=== PATIENT | male | born 1950 | race Caucasian/White ===

== ENCOUNTER → 2016-08-14 | Outpatient (CLI) | payer OTHER ==
[~2016-08-14] MED LIST: FRRS300 PO; LISI-725 PO; MULT-506 PO; PRT/20 PO
[2016-08-14 17:48] LABS: BLOOD UREA NITROGEN 15 mg/dl (7-18); BUN/CREATININE RATIO 18.6 (10-20); CALCIUM 9.3 mg/dl (8.5-10.1); CARBON DIOXIDE 28 mmol/L (21-32); CHLORIDE 105 mmol/L (98-107); GLUCOSE 139 mg/dl (70-99); POTASSIUM 4.2 mmol/L (3.5-5.1); SODIUM 141 mmol/L (136-145)
== END | disposition home or self-care (01) ==
LOC: C.LABMFLN 09:30
PROVIDERS: ATTEND Family Medicine
DX: I10 Essential (primary) hypertension (principal)

== ENCOUNTER → 2016-12-06 | Outpatient (CLI) | payer OTHER ==
[2016-12-06 13:13] LABS: ESTIMATED AVERAGE GLUCOSE 154 mg/dl; HA1C FLAG Normal (Normal)
[2016-12-06 13:50] LABS: ALT/SGPT 30 U/L (12-78); AST/SGOT 17 U/L (15-37); BLOOD UREA NITROGEN 17 mg/dl (7-18); BUN/CREATININE RATIO 26.5 (10-20); CARBON DIOXIDE 30 mmol/L (21-32); CHLORIDE 107 mmol/L (98-107); CHOLESTEROL 178 mg/dl (0-200); CREATININE 0.65 mg/dl (0.60-1.40); GLUCOSE 136 mg/dl (70-99); SODIUM 143 mmol/L (136-145); TRIGLYCERIDES 77 mg/dl (0-150); VERY LOW DENSITY LIPOPROT CALC 15 mg/dl
[2016-12-06 13:53] LABS: ALKALINE PHOSPHATASE 65 U/L (45-117); CHOLESTEROL/HDL RATIO 3.8; HDL CHOLESTEROL 47 mg/dl; LDL CHOLESTEROL CALCULATED 116 mg/dl
== END | disposition home or self-care (01) ==
LOC: C.LABMFLN 07:02
PROVIDERS: ATTEND Family Medicine
DX: E11.9 Type 2 diabetes mellitus without complications (principal); E55.9 Vitamin D deficiency, unspecified; I10 Essential (primary) hypertension

== ENCOUNTER → 2017-04-11 | Outpatient (CLI) | payer OTHER ==
[2017-04-11 13:16] LABS: ESTIMATED AVERAGE GLUCOSE 157 mg/dl; HA1C FLAG Normal (Normal)
[2017-04-11 13:21] LABS: BLOOD UREA NITROGEN 15 mg/dl (7-18); BUN/CREATININE RATIO 20.3 (10-20); CALCIUM 9.4 mg/dl (8.5-10.1); CARBON DIOXIDE 30 mmol/L (21-32); CHLORIDE 104 mmol/L (98-107); CHOLESTEROL 167 mg/dl (0-200); CREATININE 0.75 mg/dl (0.60-1.40); GLUCOSE 125 mg/dl (70-99); POTASSIUM 4.3 mmol/L (3.5-5.1); SODIUM 139 mmol/L (136-145)
[2017-04-11 13:25] LABS: ALKALINE PHOSPHATASE 82 U/L (45-117); ALT/SGPT 25 U/L (12-78); AST/SGOT 16 U/L (15-37); CHOLESTEROL/HDL RATIO 3.4; HDL CHOLESTEROL 49 mg/dl; LDL CHOLESTEROL CALCULATED 105 mg/dl; TRIGLYCERIDES 66 mg/dl (0-150); VERY LOW DENSITY LIPOPROT CALC 13 mg/dl
== END | disposition home or self-care (01) ==
LOC: C.LABMFLN 07:07
PROVIDERS: ATTEND Family Medicine
DX: E11.9 Type 2 diabetes mellitus without complications (principal); E78.00 Pure hypercholesterolemia, unspecified; I10 Essential (primary) hypertension

== ENCOUNTER → 2017-07-02 | Outpatient (CLI) | payer OTHER ==
[2017-07-02 19:01] LABS: LYME DISEASE AB IGG NEG (NEG); LYME DISEASE AB IGM NEG (NEG)
== END | disposition home or self-care (01) ==
LOC: C.LABMFLN 13:37
PROVIDERS: ATTEND Family Medicine
DX: M79.1 Myalgia (principal); T14.8XXA Other injury of unspecified body region, initial encounter; W57.XXXA Bitten or stung by nonvenomous insect and other nonvenomous arthropods, initial encounter

== ENCOUNTER → 2017-08-23 | Outpatient (CLI) | payer OTHER ==
[2017-08-23 13:07] LABS: ALBUMIN 3.4 gm/dl (3.4-5.0); ALT/SGPT 31 U/L (12-78); BLOOD UREA NITROGEN 14 mg/dl (7-18); CALCIUM 8.7 mg/dl (8.5-10.1); CARBON DIOXIDE 28 mmol/L (21-32); CHOLESTEROL 174 mg/dl (0-200); CREATININE 0.75 mg/dl (0.60-1.40); GLUCOSE 136 mg/dl (70-99); POTASSIUM 3.8 mmol/L (3.5-5.1); SODIUM 138 mmol/L (136-145)
[2017-08-23 13:12] LABS: ALKALINE PHOSPHATASE 66 U/L (45-117); AST/SGOT 14 U/L (15-37); LDL CHOLESTEROL CALCULATED 113 mg/dl; TOTAL PROTEIN 7.2 gm/dl (6.4-8.2)
[2017-08-23 13:13] LABS: HEMOGLOBIN A1C 7.5 % (4.5-5.6)
[2017-08-23 13:50] LABS: CREATININE RANDOM URINE 73.7 mg/dl
== END | disposition home or self-care (01) ==
LOC: C.LABMFLN 07:03
PROVIDERS: ATTEND Family Medicine
DX: E11.9 Type 2 diabetes mellitus without complications (principal); E78.00 Pure hypercholesterolemia, unspecified; E55.9 Vitamin D deficiency, unspecified; Z12.5 Encounter for screening for malignant neoplasm of prostate

== ENCOUNTER 2017-10-16 07:01 | Inpatient (IN) | payer OTHER ==
[2017-09-26 11:08] VITALS: BMI 34.0
--- NOTE | 2017-09-26 11:37 | PAT Medication Instructions ---
Service Date Sep 26, 2017. Current Home Medication List Amlodipine (Norvasc), 5 MG PO QPM Ergocalciferol (Vitamin D 78016 Unit), 50,000 UNIT PO 2XWEEK Ferrous Sulfate (Iron), 325 MG PO QAM Pcblvupcser-Wgflvkziddg-Ghh C- (Glucosamine Chondroitin), 2 TAB PO QAM Lisinopril (Zestril), 40 MG PO QAM Metformin Hcl (Glucophage), 500 MG PO BID Multivitamin (Multivitamin), 1 TAB PO QAM Omeprazole (Prilosec), 20 MG PO QAM [Biotin], 1 TAB PO QAM [Meloxicam], 1 MG PO BID [Vitamin B12], 1 TAB PO WEEKLY Medication Instructions For Your Scheduled Surgery - Check with surgeon for instructions: [Meloxicam], 1 MG PO BID - Hold the following medications 2 weeks prior to surgery: Btjhzzjiayf-Nhbfxqaqtht-Mmy C- (Glucosamine Chondroitin), 2 TAB PO QAM - Hold the following medications the morning of surgery: Ergocalciferol (Vitamin D 99070 Unit), 50,000 UNIT PO 2XWEEK Ferrous Sulfate (Iron), 325 MG PO QAM Lisinopril (Zestril), 40 MG PO QAM Metformin Hcl (Glucophage), 500 MG PO BID Multivitamin (Multivitamin), 1 TAB PO QAM [Biotin], 1 TAB PO QAM [Vitamin B12], 1 TAB PO WEEKLY - Take the following medications the morning of surgery with a sip of water: Omeprazole (Prilosec), 20 MG PO QAM - Take the following medications as scheduled the night before surgery: Metformin Hcl (Glucophage), 500 MG PO BID Amlodipine (Norvasc), 5 MG PO QPM If you have any questions please call us at [phone] or [phone] or [phone]
--- NOTE | 2017-09-26 12:36 | DIAGNOSTIC IMAGING REPORT ---
CHEST 2 VIEWS ROUTINE CLINICAL HISTORY: PAT preoperative evaluation COMPARISON STUDY: 01/24/2006 FINDINGS: The bones soft tissues and hemidiaphragms are normal. The cardiomediastinal silhouette is normal. The lungs are clear. The pulmonary vasculature is normal. Calcification of the costochondral cartilages bilaterally which is increased in the prior exam. IMPRESSION: No acute process. The above report was generated using voice recognition software. It may contain grammatical, syntax or spelling errors. Electronically signed by: Gregory Boyle M.D. 09/26/2017 12:34 PM Dictated Date/Time: 09/26/2017 12:26 PM
[2017-09-26 12:47] LABS: BASO % 0.8 %; BASO ABS # 0.04 K/uL (0-0.2); EOS % 1.5 %; EOS ABS # 0.07 K/uL (0-0.5); HEMATOCRIT 39.1 % (42-52); IG# 0.01 K/uL (0.00-0.02); LYMPH ABS # 1.09 K/uL (1.2-3.4); MEAN CELL VOLUME 93.8 fL (80-100); MEAN CORPUSCULAR HEMOGLOBIN 31.2 pg (25-34); MEAN CORPUSCULAR HGB CONC 33.2 g/dl (32-36); MEAN PLATELET VOLUME 9.9 fL (7.4-10.4); MONO % 9.9 %; MONO ABS # 0.47 K/uL (0.11-0.59); NEUT % 64.6 %; NEUT ABS # 3.06 K/uL (1.4-6.5); PLATELET COUNT 298 K/uL (130-400); RED CELL DISTRIBUTION WIDTH CV 14.1 % (11.5-14.5); RED CELL DISTRIBUTION WIDTH SD 48.3 fL (36.4-46.3); WHITE BLOOD COUNT 4.74 K/uL (4.8-10.8)
[2017-10-16] VITALS (7 sets, daily range): BP systolic 108–133; BP diastolic 63–76; PULSE 41–51; TEMP 36.2–36.5; O2SAT 92–100; Ht 175.3 cm; Wt 108.1 kg
[~2017-10-16] VITALS: Ht 175.3 cm; Wt 108.1 kg
[~2017-10-16 07:01] MED LIST changes: +AMLO-110 PO; +BIOTPOW17 PO; +CEFAZOLIN 2000MG IV PUSH 15 ML IV SCH; +ERGO500037 PO; +FERR1TAB23 PO; -FRRS300 PO; +GLC/500 PO; +GLUCTAB7 PO; +LACTATED RINGER'S 1000ML 1,000 ML IV SCH; -LISI-725 PO; +LISI40TA PO; +MELOXICAM PO; +PRLSR20 PO; -PRT/20 PO; +VITAMIN B12 PO
--- NOTE | 2017-10-16 08:35 | History & Physical Bridge Note ---
H&P Re-Evaluation Bridge Note: I have examined the patient, reviewed the History & Physical and in the interval since the performance of the History & Physical I have noted the following changes of clinical significance: No changes noted
--- NOTE | 2017-10-16 08:36 | History and Physical ---
History & Physical Date Oct 16, 2017. Chief Complaint Back and leg pain History of Present Illness The patient is a 67 year old male with complaints of back and leg pain Additional History Hepatic Disease: No Endocrine Disorder: No Kidney Disease: No Hypertension: Yes Heart Disease: No Bleeding Tendencies: No Infectious Diseases: No Allergies Coded Allergies: Atorvastatin (Unverified Adverse Reaction, Unknown, MUSCLE ACHES, 10/16/17) Simvastatin (Unverified Adverse Reaction, Unknown, MUSCLE ACHES, 10/16/17) Sulfamethoxazole w/Trimethoprim (Unverified Adverse Reaction, Unknown, MUSCLE PAIN, 10/16/17) Home Medications Scheduled Amlodipine (Norvasc), 5 MG PO QPM Ergocalciferol (Vitamin D 23784 Unit), 50,000 UNIT PO 2XWEEK Ferrous Sulfate (Iron), 325 MG PO QAM Skkjdafwvrd-Vxbdqckdzkz-Xeb C- (Glucosamine Chondroitin), 2 TAB PO QAM Lisinopril (Zestril), 40 MG PO QAM Metformin Hcl (Glucophage), 500 MG PO BID Multivitamin (Multivitamin), 1 TAB PO QAM Omeprazole (Prilosec), 20 MG PO QAM [Biotin], 1 TAB PO QAM [Meloxicam], 1 MG PO BID [Vitamin B12], 1 TAB PO WEEKLY Physical Examination Skin: warm/dry, no rash Eyes: normal inspection, EOMI, sclerae normal ENT: normal ENT inspection, pharynx normal Head: normocephalic, atraumatic Neck: supple, no adenopathy, trachea midline Respiratory/Chest: lungs clear, normal breath sounds, no respiratory distress Cardiovascular: regular rate, rhythm, no edema, no murmur Abdomen / GI: normal bowel sounds, non tender Back: normal inspection Extremities: normal inspection, normal range of motion Neurologic/Psych: no motor/sensory deficits, alert, normal reflexes, oriented x 3 Diagnosis Lumbar spinal stenosis Plan of Treatment Removal of hardware L4-5 L5-S1 decompression fusion L3-4
[2017-10-16] MEDS ORDERED: BUPIVACAINE/EPINEPHRINE 0.5% MPF 1:200,000 30 ML VIAL ONE (08:47)
[2017-10-16] MEDS ORDERED: BACITRACIN 50000 UNIT VIAL ONE (08:47)
[2017-10-16] MEDS ORDERED: FENTANYL CITRATE INJ 50 MCG/1 ML 2 ML VIAL ONE ×4 (08:48→11:54)
[2017-10-16] MEDS ORDERED: MIDAZOLAM HCL 1 MG/ML 2ML VIAL ONE (08:48)
[2017-10-16] MEDS ORDERED: HYDROmorphone INJ 2 MG/ML SYR/VIAL ONE ×2 (09:27→11:44)
[2017-10-16] MEDS ORDERED: ONDANSETRON INJ 2 MG/ML 2 ML VIAL IV PRN ×2 (09:30→11:45)
[2017-10-16] MEDS ORDERED: EpHEDrine SULFATE INJ 50 MG/ML AMP IV PRN (09:30)
[2017-10-16] MEDS ORDERED: MoRPHine SULFATE 10 MG/ML CARP/VIAL IV PRN (09:30)
[2017-10-16] MEDS ORDERED: ATROPINE SULFATE 0.1 MG/ML 5ML SYR IV PRN (09:30)
[2017-10-16] MEDS ORDERED: FENTANYL CITRATE INJ 50 MCG/1 ML 2 ML VIAL IV PRN (09:30)
[2017-10-16] MEDS ORDERED: ONDANSETRON INJ 2 MG/ML 2 ML VIAL ONE ×2 (11:23→11:47)
[2017-10-16] MEDS ORDERED: ROCURONIUM BROMIDE 10 MG/ML 5 ML VIAL IV ONE (11:23)
[2017-10-16] MEDS ORDERED: DEXAMETHASONE SOD INJ 4 MG/ML VIAL ONE (11:23)
[2017-10-16] MEDS ORDERED: LIDOCAINE HCL 2% 2 ML VIAL (20MG/ML) ONE (11:23)
[2017-10-16] MEDS ORDERED: VOLUVEN IN NSS ONE (11:23)
[2017-10-16] MEDS ORDERED: EpHEDrine SULFATE 50MG/5ML SYR ONE (11:23)
[2017-10-16] MEDS ORDERED: PROPOFOL IV EMULSION 10 MG/ML 20 ML VIAL IV ONE (11:23)
[2017-10-16] MEDS ORDERED: FLOSEAL HEMOSTATIC MATRIX 10ML TOP ONE (11:29)
[2017-10-16] MEDS ORDERED: SODIUM CHLORIDE 0.9% 1000ML 1,000 ML IV SCH (11:40)
--- NOTE | 2017-10-16 11:40 | [facility] Operative Report ---
Operative Report Operative Date Oct 16, 2017. Pre-Operative Diagnosis Lumbar spinal stenosis Post-Operative Diagnosis Same Procedure(s) Performed 1. Removal of posterior segmental instrumentation L4-5 L5-S1. #2 exploration of fusion L4-5 L5-S1. #3 lumbar decompression medial facetectomies foraminotomies L2-3 L3-4. #4 posterior spinal fusion L3-4. #5 placement of posterior instrumentation L3-4. #6 interbody fusion L3-4. #7 placement peek cage 11 x 26 mm at L3-4. #8 placement of locally harvested morselized autograft in the posterior lateral gutters. #9 placement of infuse collagen sponge, with master graft in the posterior lateral gutters and ostial amp bone graft in the interbody space. Surgeon Dr. Dill Regulatory Compliance Coordinator Surgeon(s) Daria Evans PA-C Estimated Blood Loss 600mL Findings Severe spinal stenosis Specimens A: Explanted hardware Anesthesia Type General Description of Procedure Patient was met with preoperatively case discussed all questions addressed. After informed consent obtained patient was taken to the operative suite underwent intubation and placed in a prone position the Paul table on top of the Adair frame. All bony prominences were well-padded eyes inspected to ensure no external pressure placed upon the. This point the lumbar spine was prepped and draped in normal sterile fashion. Sharp dissection with the assistance of Bovie cautery was performed down to and exposing the lamina of L3 transverse processes of L3 and instrumentation at L4 L5-S1 levels. I then proceeded remove the hardware bilaterally exploring the fusion mass noted to be intact. I then performed a complete laminectomy of L3 partial laminectomy of L2 addressing severe central lateral recess and foraminal stenosis. Pedicle screws were then placed in L3 and L4 bilaterally with the assistance of fluoroscopy and appropriate size mkia placed. Through a transforaminal approach and left complete discectomy of L3-4 was performed endplates created to subcortical bleeding bone and a 11 x 26 mm peek cage filled with ostium bone graft tapped in position. The rods were then locked in final position bilaterally. The transverse processes of L3 and L4 burred to subcortical bleeding bone. Infuse collagen sponge master graft and locally harvested morselized s allograft was placed in the posterior lateral gutters. 15 round SUKH drain inserted. Incision was then closed with 1 Vicryl fascia 2-0 Vicryl substantially 4-0 Monocryl for fashion closure Steri-Strips sterile dressings placed. Patient will continue to PACU stable condition. Please note Daria Berry was present throughout the entire procedure involved in patient positioning complex portions of the surgery and fashion closure. I attest to the content of the Intraoperative Record and any orders documented therein. Any exceptions are noted below.
[2017-10-16] MEDS ORDERED: LORAZEPAM 0.5 MG TAB PO PRN (11:45)
[2017-10-16] MEDS ORDERED: DO NOT ADMINISTER PNEUMOCOCCAL VACCINE PRN (11:45)
[2017-10-16] MEDS ORDERED: FAMOTIDINE 20 MG TAB PO PRN (11:45)
[2017-10-16] MEDS ORDERED: SOD PHOSPHATE/SOD BIPHOSPHATE ENEMA 132 ML BTL PR PRN (11:45)
[2017-10-16] MEDS ORDERED: ACETAMINOPHEN IV 100 ML IV PRN (11:45)
[2017-10-16] MEDS ORDERED: METOCLOPRAMIDE HCL INJ 5 MG/ML 2 ML VIAL IV PRN (11:45)
[2017-10-16] MEDS ORDERED: NALOXONE HCL 0.4 MG/1 ML VIAL/CARP IV PRN ×2 (11:45)
[2017-10-16] MEDS ORDERED: LORAZEPAM INJ 0.5 MG in SYRINGE 0 ML IV PRN (11:45)
[2017-10-16] MEDS ORDERED: hydrOXYzine HCL 25 MG TAB PO PRN (11:45)
[2017-10-16] MEDS ORDERED: ACETAMINOPHEN 500 MG TAB PO PRN (11:45)
[2017-10-16] MEDS ORDERED: MAGNESIUM HYDROXIDE SUSP 30 ML UDC PO PRN (11:45)
[2017-10-16] MEDS ORDERED: BISACODYL 10 MG SUPP PR PRN (11:45)
[2017-10-16] MEDS ORDERED: ALUMINUM/MAGNESIUM SUSP 30 ML UDC PO PRN (11:45)
[2017-10-16] MEDS ORDERED: DO NOT ADMINISTER FLU VACCINE PRN (11:45)
[2017-10-16] MEDS ORDERED: PROMETHAZINE HCL INJ 12.5 MG in SODIUM CHLORIDE 0.9% 50ML 50 ML IV PRN (11:45)
[2017-10-16] MEDS ORDERED: GLYCOPYRROLATE INJ 0.2 MG/ML VIAL ONE (11:47)
[2017-10-16] MEDS ORDERED: KETOROLAC TROMETHAMINE 30 MG/ML VIAL ONE (11:47)
[2017-10-16] MEDS ORDERED: NEOSTIGMINE METHYLSULFATE 1 MG/ML 10ML VIAL ONE (11:47)
--- NOTE | 2017-10-16 11:53 | DIAGNOSTIC IMAGING REPORT ---
INTRAOPERATIVE LUMBAR SPINE 2 VIEWS CLINICAL HISTORY: L4-S1 REMOVE HARDWARE/L3-S1 DECOMPRESSION/FUSION COMPARISON STUDY: 11/09/2011 FINDINGS: 2 fluoroscopic spot images are provided for interpretation. 16 seconds of fluoroscopic time was utilized. Postsurgical changes of L4-5 and L5-S1 discectomy and interbody fusions are again evident. There is now evidence for an L3-4 discectomy and interbody fusion. The L5 and S1 pedicle screws have been removed. There are L3 and L4 pedicle screws with adjoining spinal rods. IMPRESSION: Intraoperative findings as described above. Electronically signed by: Bautista Anderson M.D. 10/16/2017 11:51 AM Dictated Date/Time: 10/16/2017 11:50 AM
[2017-10-16] MEDS ORDERED: HYDROmorphone HCL 0.5MG/ML 50 ML CASSETTE ONE (12:00)
[2017-10-16] MEDS ORDERED: PHARMACY GLYCEMIC MGMT CONSULT PRN (12:04)
--- NOTE | 2017-10-16 12:57 | Anesthesiology Progress Note ---
Anesthesia Post Op Note Date & Time Oct 16, 2017 at 12:56 Vital Signs Pain Intensity: 1 Vital Signs Past 12 Hours Date Time Temp Pulse Resp B/P (MAP) Pulse Ox O2 Delivery O2 Flow Rate FiO2 10/16/17 12:39 45 11 10/16/17 12:39 45 11 97 10/16/17 12:36 120/63 10/16/17 12:34 42 13 10/16/17 12:34 41 13 98 10/16/17 12:33 42 14 10/16/17 12:33 42 14 97 10/16/17 12:31 127/63 10/16/17 12:29 36.5 42 16 127/63 (88) 97 Nasal Cannula 2 Oxymask 10/16/17 12:28 45 11 10/16/17 12:28 45 11 98 10/16/17 12:25 126/65 10/16/17 12:23 48 13 10/16/17 12:23 48 13 97 10/16/17 12:22 50 13 97 10/16/17 12:22 50 13 10/16/17 12:20 129/69 10/16/17 12:17 44 8 99 10/16/17 12:17 44 8 10/16/17 12:16 120/68 10/16/17 12:13 48 25 97 10/16/17 12:13 48 25 10/16/17 12:11 127/70 10/16/17 12:08 45 9 100 10/16/17 12:08 46 9 10/16/17 12:07 128/67 10/16/17 11:58 36.1 48 16 128/67 (84) 100 Oxymask 10 10/16/17 07:30 36.4 46 18 133/76 96 Room Air Notes Mental Status: alert / awake / arousable, participated in evaluation Pt Amnestic to Procedure: Yes Nausea / Vomiting: adequately controlled Pain: adequately controlled Airway Patency, RR, SpO2: stable & adequate BP & HR: stable & adequate Hydration State: stable & adequate Anesthetic Complications: no major complications apparent
[2017-10-16] MEDS ORDERED: INSULIN GLARGINE SOLOSTAR 100 UNITS/ML 3 ML PEN SC SCH ×2 (13:00→21:00)
--- NOTE | 2017-10-16 13:30 | Pharmacy Progress Note ---
Glycemic Control Intl Consult Date of Service Oct 16, 2017. Scope Glycemic Pharmacist consulted by Dr Dill on 10/16/17 for glycemic control and to write orders per [facility] inpatient glycemic control protocol Objective Weight (Kilograms): 106.70 Accuchecks BSG (last 24hrs): Test 10/16/17 07:24 10/16/17 11:59 Bedside Glucose 174 mg/dl (70-99) 187 mg/dl (70-99) Recent Pertinent Medications Outpatient Anti-diabetic Regimen: * metformin 500 mg PO BID * A1c = 7.5 % 08/23/17 Risk Factors for Insulin Resistance: * Steroids: dexamethasone 12 mg IV intraoperatively * Recent Surgery: POD 0 * Diet: type 2 diabetic diet Assessment & Plan ASSESSMENT: * Mr Washington is a 67 y/o M admitted today with lumbar surgery. He has a PMH of borderline control of diabetes (per the Elements of Diabetes Care Scoring Scale , the patient's goal range is 6.6-7.5%). Prior to surgery, the patient's fasting blood sugar was 174 mg/dL. The patient is at risk for hyperglycemia due to an elevated fasting blood sugar, elevated HbA1C, and 12 mg of dexamethasone received in the OR. * Scheduled a full-24 hour weight-based stress of 3 Lantus dose for now along with weight-based stress of 3 Novolog dosing. Lantus available for this evening at weight-based doses. Overnight accuchecks ordered. At any point if 2 consecutive blood sugars are greater than 200 mg/dL the patient will be started on an insulin infusion. (moderate stress, goal range of 120-180 mg/dL) * Pt is maintained on oral antidiabetic agents as an outpatient * Oral agents are not recommended for inpatient use d/t drug interactions, changing PO intake, and difficulty titrating for acute hyper/hypoglycemia. ADA recommends re-initiating outpatient oral agents 1-2 days prior to discharge if/ when appropriate if they were held on admission. * Will hold oral agents for admission and utilize SQ basal bolus insulin regimen which is the recommended regimen for inpatient glycemic control. * Will initiate weight based insulin dosing for insulin billy patient and titrate based on BSG trends. PLAN FOR INPATIENT GLYCEMIC CONTROL: * Holding outpatient oral diabetes medications * Basal insulin with LANTUS 55 units SQ x 1 then 0-27 units tonight based upon blood sugar * Correctional Insulin with NOVOLOG per scale ACHS or Q6hrs while NPO * Goal Range: Low 110 mg/dL - High 140 mg/dL * Correction Factor: 15 mg/dL/unit * Nutritional / Prandial insulin per carb ratio of 1 unit per 5 grams CHO consumed * Please note that the plan above was derived based on current level of insulin resistance and hospital stress. These recommendations are appropriate for inpatient admission only. Plan of care upon discharge will need to be reassessed to avoid potential outpatient hypo/hyperglycemia. Thank you.
[2017-10-16] MEDS: SODIUM CHLORIDE 0.9% 1000ML 1,000 ML IV SCH ×2 (14:05→20:58)
[2017-10-16] MEDS: INSULIN ASPART 100 UNITS/ML 3 ML PEN SC SCH ×4 (14:15→23:54)
[2017-10-16] MEDS: HYDROmorphone HCL 0.5MG/ML 50 ML CASSETTE IV PRN ×2 (15:00→22:46)
[2017-10-16] MEDS: CEFAZOLIN IV 2,000 MG in SYRINGE 0 ML IV SCH ×2 (15:57→23:55)
[2017-10-16] MEDS: AMLODIPINE BESYLATE 5 MG TAB PO SCH (21:00)
[2017-10-16] MEDS: DOCUSATE SODIUM/SENNA 50/8.6MG TAB PO SCH (21:00)
[2017-10-17] MEDS ORDERED: NURSING VERBAL MED ORDER ONE ×2 (03:45→06:15)
[2017-10-17 03:56] VITALS: BP 118/65; PULSE 50; TEMP 36.7; O2SAT 94
[2017-10-17] MEDS: INSULIN ASPART 100 UNITS/ML 3 ML PEN SC SCH ×5 (03:56→21:00)
[2017-10-17] MEDS ORDERED: DC PCA ONE (06:00)
[2017-10-17] MEDS ORDERED: HYDROmorphone INJ 1 MG/ML SYR IV PRN (06:00)
--- NOTE | 2017-10-17 06:27 | Clinical Documentation Query ---
CLINICAL DOCUMENTATION QUERY 67-y/o male who has undergone L3-L4 fusion. The H&P states patient has only HTN but patient home medications and inpatient treatment indicate otherwise In your clinical opinion is this patient being managed for: ( ) Type 2 diabetes mellitus without complications ( ) Not Agree ( ) Other explanation of clinical findings (Please Explain) ( ) Unable to determine (Please Define) ( ) Need to Discuss The medical record reflects the following clinical findings, treatment, and risk factors. Clinical Indicators: takes Glucophage at home Treatment: Lantus SC, Novolog SC. ACHS BSG. Risk Factors: Age, Please clarify and document your clinical opinion in the progress notes and discharge summary. Terms such as "probable", "suspected", "likely", "questionable", "possible", or "still to be ruled out" are acceptable. IF IN AGREEMENT, YOU MUST DOCUMENT ABOVE DIAGNOSTIC STATEMENT IN DAILY PROGRESS NOTES AND DISCHARGE SUMMARY. This document is not part of the patient's record. Thank You, Gene Balbuena, RN [phone]
[2017-10-17 06:52] LABS: BASO % 0.1 %; BASO ABS # 0.01 K/uL (0-0.2); HEMATOCRIT 30.8 % (42-52); HEMOGLOBIN 10.4 g/dL (14.0-18.0); IG# 0.04 K/uL (0.00-0.02); LYMPH % 17.9 %; MEAN CELL VOLUME 92.5 fL (80-100); MEAN CORPUSCULAR HEMOGLOBIN 31.2 pg (25-34); MEAN CORPUSCULAR HGB CONC 33.8 g/dl (32-36); MEAN PLATELET VOLUME 9.2 fL (7.4-10.4); MONO % 13.5 %; MONO ABS # 1.36 K/uL (0.11-0.59); NEUT % 68.1 %; NEUT ABS # 6.83 K/uL (1.4-6.5); PLATELET COUNT 250 K/uL (130-400); RED CELL DISTRIBUTION WIDTH CV 14.5 % (11.5-14.5); RED CELL DISTRIBUTION WIDTH SD 48.8 fL (36.4-46.3); WHITE BLOOD COUNT 10.04 K/uL (4.8-10.8)
[2017-10-17 07:10] VITALS: BP 117/66; PULSE 52; TEMP 36.7; O2SAT 93
[2017-10-17 07:21] LABS: CALCIUM 8.1 mg/dl (8.5-10.1); CREATININE 0.71 mg/dl (0.60-1.40); POTASSIUM 3.7 mmol/L (3.5-5.1)
[2017-10-17 08:09] VITALS: O2SAT 93
[2017-10-17] MEDS: PANTOprazole SOD 40 MG TAB PO SCH (08:58)
[2017-10-17] MEDS: LISINOPRIL 40 MG TAB PO SCH (08:59)
[2017-10-17] MEDS ORDERED: INSULIN GLARGINE SOLOSTAR 100 UNITS/ML 3 ML PEN SC SCH ×2 (09:00→21:00)
[2017-10-17] MEDS: OXYCODONE HCL IR 5 MG TAB (IMMEDIATE RELEASE) PO PRN (10:56)
[2017-10-17] MEDS ORDERED: RXC5 PO (11:08)
--- NOTE | 2017-10-17 11:08 | Discharge Instructions ---
Discharge Instructions Date of Service Oct 17, 2017. Admission Reason for Admission: Lumbar Spinal Stenosis Discharge Discharge Diagnosis / Problem: lumbar stenosis Discharge Goals Goal(s): Improve function Activity Recommendations Activity Limitations: per Instructions/Follow-up section . Instructions / Follow-Up Instructions / Follow-Up ACTIVITY RECOMMENDATIONS: SELF CARE INSTRUCTIONS AFTER THORACIC/LUMBAR FUSIONS 1. You may walk to your tolerance. It is good exercise for your legs and back. Expect some back and intermittent leg aches and pains. 2. You may perform "counter-top" level activities (make a sandwich, austen with a project, etc.). 3. No bending or lifting of more than 10 pounds or back twisting of any nature (roll like a log when turning in bed). 4. You may ride in a car for 20-30 minutes at a time. No driving until after your first visit with your doctor. 5. Frequent changes of position and restricting sitting to 30 minutes at a time will help limit the amount of back spasms and stiffness you may experience. 6. You may discontinue the use of ambulatory aids (cane, crutches, etc.) once your strength and confidence allow. 7. You may technical training instructor the shower and let water strike your incision when you arrive home at least once daily. Do not take a tub bath, sit in a hot tub or go into a swimming pool until after your first recheck in the office. SPECIAL CARE INSTRUCTIONS: VERY IMPORTANT TO READ AND REVIEW A. Your surgical incision has been closed with a cosmetic suture under the skin that will dissolve in about 6 weeks. In 14 days, you can use a pair of clean scissors and cut the suture that is left outside of the skin at the ends of your incision. 1. The small skin tapes can be removed 7 days after surgery if they have not fallen off by that point. 2. You may keep the wound open to air as much as possible to promote healing after post-op day number 5 unless told otherwise by your doctor. 3. If you think the wound looks like it is becoming infected (redness or worsening drainage) and/or you are experiencing fever, chill or worsening back pain and muscle spasms, contact the office so that we may evaluate you as soon as possible. B. Complications are uncommon, but please contact us if you have any signs or symptoms of: 1. wound infection (fever higher than 102.5 degrees F, redness, separation of wound, drainage, or increasing pain from the incision) 2. blood clots in legs (pain, swelling, redness and warmth in legs) 3. urinary tract infection (fever higher than 102.5 degrees F, burning upon urination or increased frequency of urination) 4. nerve problems (inability to walk on your toes or heels, numbness, loss of bowel or bladder control) 5. any other symptoms that concern you C. Please call the office at if you have any concerns or questions about your operation or recovery. D. No smoking! Smoking drastically decreases the chance of a solid fusion. E. Do not take any anti-inflammatory medications (Indocin, Advil, Motrin, Aspirin, Naprosyn, etc.) as these may inhibit the chance of a solid fusion. Tylenol is okay to take for pain. MANAGING PAIN AFTER SPINAL SURGERY 1. Narcotic medication is intended for short-term use and will be provided for surgical pain. Surgical pain usually lasts for a period of 4-6 weeks. Narcotic medication includes Percocet, Vicodin, Darvocet, Tylenol #3 or Lortab. 2. Longer-term pain is more appropriately treated with non-narcotic medication such as Tylenol ES. 3. Muscle spasm is not appropriately treated with narcotics. Muscle relaxers such as Soma, Flexeril or Skelaxin can be used along with Tylenol ES. 4. Remember that we all live with some "aches and pains". This is not unusual or uncommon after an injury or as we get older. a. Back pain is expected and may include muscle spasms for 4 to 6 weeks after surgery. The pain should gradually improve. If the pain worsens for no apparent reason, please contact the office. b. Intermittent leg pain may also be experienced and should not be concerned about unless it worsens for no apparent reason. If so, please contact the office. 5. We will provide appropriate medication within the normal guidelines of their prescribed use. We will also be very cautious and aware of potential abuse and extended duration of patients' medication needs. a. Pain medications are for your comfort and to assist with sleep and rest so that the tissue can heal. They are not provided in order to return to normal activity and should not be used through the day. To do so or worsening pain at night can result from ongoing tissue damage and development of tolerance to the prescribed medicine. 6. Please allow 2-3 days to process refills. Prescriptions will not be mailed but must be picked up at the office. FOLLOW UP VISIT: Keep your scheduled follow-up appointment. Any questions, please call the office at . Current Hospital Diet Patient's current hospital diet: Diabetes Type 2 Diet Discharge Diet Recommended Diet: Regular Diet Procedures Procedures Performed: 1. Removal of posterior segmental instrumentation L4-5 L5-S1. #2 exploration of fusion L4-5 L5-S1. #3 lumbar decompression medial facetectomies foraminotomies L2-3 L3-4. #4 posterior spinal fusion L3-4. #5 placement of posterior instrumentation L3-4. #6 interbody fusion L3-4. #7 placement peek cage 11 x 26 mm at L3-4. #8 placement of locally harvested morselized autograft in the posterior lateral gutters. #9 placement of infuse collagen sponge, with master graft in the posterior lateral gutters and ostial amp bone graft in the interbody space. Pending Studies Studies pending at discharge: no Laboratory Results Hemoglobin A1c Test 08/23/17 07:07 Range/Units Estimated Average Glucose 169 mg/dl Hemoglobin A1c 7.5 H 4.5-5.6 % Lipid Panel Test 08/23/17 07:07 Range/Units Triglycerides Level 110 0-150 mg/dl Cholesterol Level 174 0-200 mg/dl HDL Cholesterol 39 mg/dl Cholesterol/HDL Ratio 4.5 LDL Cholesterol, Calculated 113 mg/dl Medical Emergencies . Who to Call and When: Medical Emergencies: If at any time you feel your situation is an emergency, please call 911 immediately. . Non-Emergent Contact Non-Emergency issues call your: Primary Care Provider . "Provider Documentation" section prepared by Santhosh Dill. .
--- NOTE | 2017-10-17 11:38 | Progress Note ---
Progress Note Date of Service Oct 17, 2017. Progress Note Patient's back pain is controlled. Leg symptoms improved. On exam is good strength testing. Assessment status post lumbar decompression fusion. Plan at this time will continue physical therapy advance his bowel regiment. I have added Toradol to his pain regimen. Hopefully discharge home this weekend.
[2017-10-17] MEDS: KETOROLAC TROMETHAMINE 15 MG/ML VIAL IV. PRN ×2 (12:03→20:00)
[2017-10-17 12:10] VITALS: BP 142/70; PULSE 51; TEMP 37.2; O2SAT 93
--- NOTE | 2017-10-17 12:31 | Pharmacy Progress Note ---
Pharmacy Glycemic Short Note 2 Date of Service Oct 17, 2017. OUTPATIENT ANTIDIABETIC REGIMEN: * metformin 500 mg PO BID ASSESSMENT: * Mr Washington is a 67 y/o M admitted today with lumbar surgery. He has a PMH of borderline control of diabetes (per the Elements of Diabetes Care Scoring Scale , the patient's goal range is 6.6-7.5%). Prior to surgery, the patient's fasting blood sugar was 174 mg/dL. The patient is at risk for hyperglycemia due to an elevated fasting blood sugar, elevated HbA1C, and 12 mg of dexamethasone received in the OR. * The patient received a total of 77 units of insulin (65 units of basal) with blood sugars of [phone]. Fasting this morning was 71 mg/dL which is excellent. Held off on giving Lantus this morning until blood sugar recovers more. Patient may not require more Lantus since received more than weight-based stress of 3 yesterday. Scheduled dose of Lantus if blood sugar greater than 180 mg/dL * Restart metformin tonight with dinner. Novolog is too aggressive as patient trended downwards yesterday so loosened scale to weight-based stress of 1. PLAN FOR INPATIENT GLYCEMIC CONTROL: * metformin 500 mg PO BIDM * Basal insulin * Lantus 15 units SQ HS if BSG greater than 180 mg/dL * Bolus insulin * NovoLog per scale ACHS or Q6hrs while NPO * Goal Range: Low 110 mg/dL - High 140 mg/dL * Correction Factor: 30 mg/dL/unit * Nutritional / Prandial insulin per carb ratio of 1 unit per 10 grams CHO consumed PLAN FOR DISCHARGE: * Recommend titration upwards on metformin to goal of 1000 mg PO BID as patient' s HbA1C is just barely controlled.
[2017-10-17 15:32] VITALS: BP 149/77; PULSE 54; TEMP 37.1; O2SAT 97
[2017-10-17] MEDS: METFORMIN HCL 500 MG TAB PO SCH (17:51)
[2017-10-17] MEDS: AMLODIPINE BESYLATE 5 MG TAB PO SCH (21:39)
[2017-10-17] MEDS: DOCUSATE SODIUM/SENNA 50/8.6MG TAB PO SCH (21:39)
[2017-10-17 23:08] VITALS: BP 134/76; PULSE 62; TEMP 36.8; O2SAT 93
[2017-10-18] MEDS: POLYETHYLENE (MIRALAX) 17 GM PACK PO SCH ×4 (06:27→23:40)
[2017-10-18 06:34] VITALS: BP 134/78; PULSE 58; TEMP 36.9; O2SAT 95
[2017-10-18] MEDS: KETOROLAC TROMETHAMINE 15 MG/ML VIAL IV. PRN (07:21)
[2017-10-18] MEDS: LISINOPRIL 40 MG TAB PO SCH (07:22)
[2017-10-18] MEDS: PANTOprazole SOD 40 MG TAB PO SCH (07:22)
[2017-10-18] MEDS: METFORMIN HCL 500 MG TAB PO SCH ×2 (07:27→17:53)
[2017-10-18] MEDS: INSULIN ASPART 100 UNITS/ML 3 ML PEN SC SCH ×4 (07:31→21:33)
--- NOTE | 2017-10-18 07:40 | Orthopedic Progress Note ---
Orthopedic Progress Note Date of Service Oct 18, 2017. Subjective Post OP Day: 2 Reports: feeling well Additional Notes: Patient is postoperative day 2 revision lumbar decompression fusion. He is doing well. No radicular leg pain. Back pain is controlled with Toradol. SUKH drain output last shift is 85 cc. He is passing flatus but no bowel movement. History and physical therapy ambling roughly 600 feet. Objective calves soft nontender, N/V intact, A&O x3, toes mobile Patient is sitting on the edge of the bed eating breakfast. He is in no obvious distress. Lumbar dressing is clean dry and intact. Lower extremities or calves soft and nontender bilaterally. Neurovascular intact bilaterally. Date Time Temp Pulse Resp B/P (MAP) Pulse Ox O2 Delivery O2 Flow Rate FiO2 10/18/17 06:34 36.9 58 16 134/78 (96) 95 Room Air 10/17/17 23:08 36.8 62 16 134/76 (95) 93 Room Air 10/17/17 19:45 Room Air 10/17/17 15:32 37.1 54 20 149/77 (101) 97 Room Air 10/17/17 12:10 37.2 51 16 142/70 (94) 93 Room Air 10/17/17 08:09 93 Room Air Assessment & Plan Assessment: Postop day 2 revision lumbar decompression fusion Plan: We will try oral pain medication today. Maintain SUKH drain. Continue with bowel regimen. Continue physical therapy and ambulation. DVT prophylaxis is in the form of teds and SCDs. Anticipate discharge home tomorrow. Inhouse Planning Pain Management: Toradol, Oxy IR DVT Prophylaxis: TEDs, SCDs Discharge Planning Discharge Planning: home Pain Management: Oxy IR DVT Prophylaxis: TEDs
--- NOTE | 2017-10-18 12:38 | Pharmacy Progress Note ---
Pharmacy Glycemic Short Note 2 Date of Service Oct 18, 2017. OUTPATIENT ANTIDIABETIC REGIMEN: * metformin 500 mg PO BID ASSESSMENT: * Mr Washington is a 67 y/o M admitted with lumbar surgery. He has a PMH of borderline control of diabetes (per the Elements of Diabetes Care Scoring Scale , the patient's goal range is 6.6-7.5%). The patient is currently POD 2. * The patient received a total of 6 units of insulin (0 units of basal) with blood sugars of 80-39-96-77-115. Fasting this morning was 110 mg/dL which is excellent. Held off on giving Lantus yesterday. No Lantus today. Restarted metformin yesterday and loosened Novolog. Removed carbohydrate ratio with lunch PLAN FOR INPATIENT GLYCEMIC CONTROL: * metformin 500 mg PO BIDM * Basal insulin * hold * Bolus insulin * NovoLog per scale ACHS or Q6hrs while NPO * Goal Range: Low 110 mg/dL - High 140 mg/dL * Correction Factor: 45 mg/dL/unit * Nutritional / Prandial insulin per carb ratio of 1 unit per -- grams CHO consumed PLAN FOR DISCHARGE: * Recommend titration upwards on metformin to goal of 1000 mg PO BID as patient' s HbA1C is just barely controlled.
[2017-10-18] MEDS: OXYCODONE HCL IR 5 MG TAB (IMMEDIATE RELEASE) PO PRN ×2 (15:01→20:32)
[2017-10-18 15:14] VITALS: BP 149/83; PULSE 49; TEMP 36.7; O2SAT 97
[2017-10-18] MEDS: AMLODIPINE BESYLATE 5 MG TAB PO SCH (20:32)
[2017-10-18] MEDS: DOCUSATE SODIUM/SENNA 50/8.6MG TAB PO SCH (20:32)
[2017-10-18 23:10] VITALS: BP 165/87; PULSE 54; TEMP 36.6; O2SAT 95
[2017-10-19] MEDS: OXYCODONE HCL IR 5 MG TAB (IMMEDIATE RELEASE) PO PRN ×2 (01:33→08:52)
[2017-10-19 01:35] VITALS: BP 148/87; PULSE 51
[2017-10-19] MEDS: POLYETHYLENE (MIRALAX) 17 GM PACK PO SCH (06:00)
[2017-10-19 07:02] VITALS: BP 133/74; PULSE 51; TEMP 36.5; O2SAT 95
[2017-10-19] MEDS: INSULIN ASPART 100 UNITS/ML 3 ML PEN SC SCH (08:00)
--- NOTE | 2017-10-19 08:06 | Orthopedic Progress Note ---
Orthopedic Progress Note Date of Service Oct 19, 2017. Subjective Post OP Day: 3 Additional Notes: Patient has some tingling in his foot which is new but his preoperative pain that was radicular has resolved. He is doing fantastic. He has had a bowel movement. History and physical therapy see him in 300 feet plus several laps in the hallways. SUKH drain output last shift was 75 cc. He has no other complaints. Objective calves soft nontender, N/V intact, dressing C/D/I, A&O x3 He is standing in the restroom brushing his teeth. He is in no obvious distress. Lumbar dressing is clean dry and intact. Calves are soft nontender bilateral lower extremities. He is neurovascular intact bilateral lower extremities. Date Time Temp Pulse Resp B/P (MAP) Pulse Ox O2 Delivery O2 Flow Rate FiO2 10/19/17 07:02 36.5 51 15 133/74 (93) 95 Room Air 10/19/17 01:35 51 148/87 (107) 10/18/17 23:35 Room Air 10/18/17 23:10 36.6 54 16 165/87 (113) 95 Room Air 10/18/17 15:20 Room Air 10/18/17 15:14 36.7 49 18 149/83 (105) 97 Room Air Assessment & Plan Assessment: Postop day 3 revision lumbar decompression fusion Plan: I will discharge him home today. Will remove SUKH drain and dressing prior to discharge. Teds in the form of DVT prophylaxis at home. Restrictions reviewed in detail as well as all questions answered. He will follow-up in our office in 2 weeks. Inhouse Planning Pain Management: Toradol, Oxy IR DVT Prophylaxis: REGLA Escaleras Discharge Planning Discharge Planning: home Pain Management: Oxy IR DVT Prophylaxis: Lali
--- NOTE | 2017-10-19 08:07 | Discharge Summary ---
Orthopedic Discharge Summary Admission Date/Reason Oct 16, 2017 at 08:15 Lumbar Spinal Stenosis. Discharge Date/Disposition Oct 19, 2017 Home Diagnosis Principal Diagnosis: Lumbar spinal stenosis Procedure(s) Performed Removal of posttransplantation L5-S1, L4-5. Lumbar decompression with instrument fusion L3-4 Medication Reconciliation New Medications: Oxycodone HCl (Oxycodone HCl) 5 Mg Tab 5-10 MG PO Q4H PRN for Moderate - severe pain for 30 Days, #60 TAB Continued Medications: Amlodipine (Norvasc) 5 Mg Tab 5 MG PO QPM, TAB Ergocalciferol (Vitamin D 58799 Unit) 50,000 Unit Cap 31221 UNIT PO 2XWEEK, CAP SATURDAY ANFD SATURDAY Ferrous Sulfate (Iron) 325 Mg Tab 325 MG PO QAM Lsueugcrggf-Dyccswqkott-Hvu C- (Glucosamine Chondroitin) 1 Tab Tab 2 TAB PO QAM Lisinopril (Zestril) 40 Mg Tab 40 MG PO QAM, TAB Metformin Hcl (Glucophage) 500 Mg Tab 500 MG PO BID, TAB Multivitamin (Multivitamin) Tab 1 TAB PO QAM, 0 Refills Omeprazole (Prilosec) 20 Mg Capcr 20 MG PO QAM, CAP [Biotin] () 1 TAB PO QAM [Meloxicam] () 1 MG PO BID [Vitamin B12] () 1 TAB PO WEEKLY SUNDAYS Admission Physical Exam As per Admitting History & Physical. Hospital Course Patient has had an uncomplicated hospital course. He has been making progress in physical therapy as well as ambling the hallways. Pain is controlled. He has had a bowel movement. Lab values have been stable. He is discharged home on postoperative day 3. Discharge Instructions Please refer to the electronic Patient Visit Report (Discharge Instructions) for additional information.
[2017-10-19] MEDS: METFORMIN HCL 500 MG TAB PO SCH (08:49)
[2017-10-19] MEDS: PANTOprazole SOD 40 MG TAB PO SCH (08:49)
[2017-10-19] MEDS: LISINOPRIL 40 MG TAB PO SCH (08:50)
[2017-10-19 10:40] VITALS: BP 133/74; PULSE 51; TEMP 36.5; O2SAT 95
== END 2017-10-19 11:24 | disposition home or self-care (01) | DRG 455 ==
LOC: C.ACU 07:01 → C.3E 08:15 → ENRESERV 12:15
PROVIDERS: ADMIT Orthopaedic Surgery Orthopaedic Surgery of the Spine; ATTEND Orthopaedic Surgery Orthopaedic Surgery of the Spine
PROC: 0SP004Z Removal of Internal Fixation Device from Lumbar Vertebral Joint, Open Approach (ICD-10-PCS; principal; 2017-10-16 09:15)
PROC: 0SP304Z Removal of Internal Fixation Device from Lumbosacral Joint, Open Approach (ICD-10-PCS; principal; 2017-10-16 09:15)
PROC: 0ST20ZZ Resection of Lumbar Vertebral Disc, Open Approach (ICD-10-PCS; principal; 2017-10-16 09:15)
PROC: 01NB0ZZ Release Lumbar Nerve, Open Approach (ICD-10-PCS; principal; 2017-10-16 09:15)
PROC: 0SG00AJ Fusion of Lumbar Vertebral Joint with Interbody Fusion Device, Posterior Approach, Anterior Column, Open Approach (ICD-10-PCS; principal; 2017-10-16 09:15)
PROC: 0SG0071 Fusion of Lumbar Vertebral Joint with Autologous Tissue Substitute, Posterior Approach, Posterior Column, Open Approach (ICD-10-PCS; principal; 2017-10-16 09:15)
DX: M48.061 Spinal stenosis, lumbar region without neurogenic claudication (principal); I10 Essential (primary) hypertension; E11.9 Type 2 diabetes mellitus without complications; K21.9 Gastro-esophageal reflux disease without esophagitis; Z79.899 Other long term (current) drug therapy; Z79.84 Long term (current) use of oral hypoglycemic drugs; Z79.1 Long term (current) use of non-steroidal anti-inflammatories (NSAID); Z98.1 Arthrodesis status; Z88.2 Allergy status to sulfonamides; Z88.8 Allergy status to other drugs, medicaments and biological substances

== ENCOUNTER → 2018-02-17 | Outpatient (CLI) | payer OTHER ==
[~2018-02-17] MED LIST changes: -AMLO-110 PO; +AMLO5TAB3 PO; -CEFAZOLIN 2000MG IV PUSH 15 ML IV SCH; -LACTATED RINGER'S 1000ML 1,000 ML IV SCH; +RXC5 PO
[2018-02-17 13:31] LABS: HEMOGLOBIN A1C 7.2 % (4.5-5.6)
[2018-02-17 13:45] LABS: ALBUMIN 3.4 gm/dl (3.4-5.0); ALKALINE PHOSPHATASE 74 U/L (45-117); ALT/SGPT 28 U/L (12-78); AST/SGOT 15 U/L (15-37); BLOOD UREA NITROGEN 17 mg/dl (7-18); CALCIUM 8.6 mg/dl (8.5-10.1); CARBON DIOXIDE 28 mmol/L (21-32); CHOLESTEROL 158 mg/dl (0-200); CREATININE 0.75 mg/dl (0.60-1.40); GLUCOSE 129 mg/dl (70-99); LDL CHOLESTEROL CALCULATED 91 mg/dl; POTASSIUM 4.3 mmol/L (3.5-5.1); SODIUM 137 mmol/L (136-145); TOTAL PROTEIN 7.1 gm/dl (6.4-8.2)
== END | disposition home or self-care (01) ==
LOC: C.LABMFLN 07:01
PROVIDERS: ATTEND Family Medicine
DX: I10 Essential (primary) hypertension (principal); E78.00 Pure hypercholesterolemia, unspecified; E55.9 Vitamin D deficiency, unspecified; E11.9 Type 2 diabetes mellitus without complications

== ENCOUNTER 2018-09-10 04:52 | Inpatient (IN) ==
--- NOTE | 2018-08-21 16:10 | PAT Medication Instructions ---
Medication Instructions Date of Service August 21, 2018 Home Medications amlodipine 5 mg PO QPM carisoprodol 350 mg PO DAILY PRN doxazosin 2 mg PO HS ergocalciferol (vitamin D2) 50,000 unit PO 2XWK ferrous sulfate 325 mg PO BID hydrocortisone 1 applic TOPICAL BID PRN lisinopril 40 mg PO QAM metformin 1,000 mg PO BID multivitamin 1 tab PO QAM omeprazole 20 mg PO QAM psyllium husk [Metamucil] 1 tbsp PO DAILY PRN sildenafil 25 - 100 mg PO DAILY PRN vitamin F51-rxket acid 1,000 mcg PO WK amoxicillin 4 tab PO DIRECTED PRN biotin 5,000 mcg PO QAM Continue as directed ergocalciferol (vitamin D2) 50,000 unit PO 2XWK vitamin X43-qqkst acid 1,000 mcg PO WK amoxicillin 4 tab PO DIRECTED PRN STOP taking 24 hours before surgery hydrocortisone 1 applic TOPICAL BID PRN DO NOT take the morning of surgery carisoprodol 350 mg PO DAILY PRN ferrous sulfate 325 mg PO BID lisinopril 40 mg PO QAM metformin 1,000 mg PO BID multivitamin 1 tab PO QAM psyllium husk [Metamucil] 1 tbsp PO DAILY PRN sildenafil 25 - 100 mg PO DAILY PRN biotin 5,000 mcg PO QAM Take morning of surgery With a small sip of water, OTHERWISE NOTHING TO EAT OR DRINK AFTER MIDNIGHT: omeprazole 20 mg PO QAM Take evening before surgery amlodipine 5 mg PO QPM carisoprodol 350 mg PO DAILY PRN (if needed) doxazosin 2 mg PO HS ferrous sulfate 325 mg PO BID metformin 1,000 mg PO BID Other Notes If you have any questions please call us at [phone] or [phone] or [phone] or [phone]
--- NOTE | 2018-08-22 08:52 | History & Physical Report ---
Date of Service August 22, 2018 Date of Surgery: 09-10-18 Assessment & Plan (1) Osteoarthritis of left knee: Further care discussed with Yovani, at this point in time has failed conservative measures and would like to proceed with a left total knee replacement. He underwent right TKA in June 2018 and used HHPT, would like to use the same agency, will discuss with case management. DVT prophalaxis with TEDs, SCDs and will also place on aspirin 81 mg p.o. b.i.d. for a month postop. Patient will have follow up appointment in our office two weeks post op for staple removal and re-evaluation. Patient otherwise has no other questions or concerns. History of Present Illness Chief Complaint: Left knee pain Primary Care Provider: Rolando Posey MD Mr Washington is a pleasant 68 year old male who presents for preop evaluation prior to left total knee replacement scheduled for 09-10-18 at [facility] to be performed by Dr Palacio. He recently underwent right TKA in June and is doing well. He states he has been having pain in this knee for several years now and had gradually worsened. He states his pain is currently 5/10, worst is 8/10. he has tried oral antiinflammatories including Ibuprofen and Aleve, he has also undergone previous injections including cortisone and visco without relief. His pain is now affecting his daily activities including walking , standing, and using stairs. He has tried previous NSAID, injections as well as physical therapy. He admits to decreased ROM, crepitation and stiffness. his pain does occassionally wake him at night. at this point and time has failed conservative measures and would like to proceed with left total knee replacement. Allergies Allergy/AdvReac Type Severity Reaction Status Date / Time atorvastatin AdvReac Intermediate MUSCLE Verified 07/31/18 10:43 ACHES simvastatin AdvReac Intermediate MUSCLE Verified 07/31/18 10:43 ACHES sulfamethoxazole AdvReac Intermediate MUSCLE PAIN Verified 07/31/18 10:43 trimethoprim AdvReac Intermediate MUSCLE PAIN Verified 07/31/18 10:43 Bactrim AdvReac Unknown MUSCLE PAIN Unverified 10/16/17 07:18 Home Medications Home Medications Medication Instructions Recorded Confirmed Type amlodipine 5 mg PO QPM 06/20/18 07/31/18 History carisoprodol 350 mg PO DAILY PRN 06/20/18 07/31/18 History doxazosin 2 mg PO HS 06/20/18 07/31/18 History ergocalciferol (vitamin D2) 50,000 unit PO 2XWK 06/20/18 07/31/18 History [Vitamin D2] ferrous sulfate 325 mg PO BID 06/20/18 07/31/18 History hydrocortisone 1 applic TOPICAL BID PRN 06/20/18 07/31/18 History lisinopril 40 mg PO QAM 06/20/18 07/31/18 History metformin 1,000 mg PO BID 06/20/18 07/31/18 History multivitamin 1 tab PO QAM 06/20/18 07/31/18 History omeprazole 20 mg PO QAM 06/20/18 07/31/18 History psyllium husk [Metamucil] 1 tbsp PO DAILY PRN 06/20/18 07/31/18 History sildenafil 25 - 100 mg PO DAILY PRN 06/20/18 07/31/18 History vitamin D70-spijs acid 1,000 mcg PO WK 06/20/18 07/31/18 History amoxicillin 4 tab PO DIRECTED PRN 07/31/18 07/31/18 History biotin 5,000 mcg PO QAM 07/31/18 07/31/18 History Past Med/Surg History Medical History Cardiac murmur Diabetes mellitus, type 2 GERD (gastroesophageal reflux disease) Hx of deep venous thrombosis YRS AGO-HAPPENED SPONTANEOUSLY-WAS ON THINNERS X 6 MONTHS-NO ISSUES SINCE Hx of sleep apnea Had gastric bypass - lost 130 lbs and no uses cpap Hyperlipidemia Hypertension Rheumatoid arthritis Surgical History History of appendectomy History of back surgery X 3-INCLUDING TITANIUM RODS History of carpal tunnel release R/L History of gastric bypass 2013 History of repair of rotator cuff R/L History of right knee joint replacement June 2018 History of tonsillectomy Family History Son Family hx of colon cancer Social History Current Living Situation: Spouse Feels Safe at Home: Yes Safety Concerns: Feels Safe At This Time Smoking Status: Never smoker Second Hand Exposure: No Hx Alcohol Use: No Hx Substance Use: No Beliefs That Will Affect Care: None Preferred Language: Wolof Communication Ability: Effective Review of Systems All systems reviewed & are unremarkable except as noted in HPI & below Constitutional: no fever, no chills and no sweats Respiratory: no cough, no dyspnea and no hemoptysis Cardiovascular: no chest pain, no dyspnea and no orthopnea Gastrointestinal: no abdominal pain Integumentary: no rash and no lesions Physical Exam 2 Vital Signs (Past 24 Hours): Ht: 5ft 10inches Wt: 99.8 Kg BMI: 31.6 BP: 140/64 Pulse: 82 Respirations: 16 Constitutional: WD/WN, vitals as above no acute distress Respiratory: normal respiratory effort, lungs clear to auscultation no respiratory distress Cardiovascular: Rate/Rhythm: regular rate and regular rhythm Heart Sounds: + murmur (Grade II/ systolic ejection murmur) Gastrointestinal (Abdomen): normal bowel sounds, soft, nontender, no hepatosplenomegaly Inspection/Auscultation: normal bowel sounds; abdomen not distended Musculoskeletal: Left Knee Physical Exam Overall varus alignment on physical exam and radiographically, he ambulates with a limp, there is no atrophy or ecchymosis noted. +2 knee effusion, greatest tenderness over his medial compartment and patellar tendon. positive crepitation with motion, lachmans negative, anterior drawer negative, positive mcmurrays medial joint, knee is ligamentously stable with valgus and varus stress. straight leg raise without lag, pain with active ROM, Active ROM 0/3/115, Passive ROM 0/3/120. Lower Extremity Strength normal. Lower Extremity Neuro-vascular is normal. calf soft and non tender. DP pulse palpable. Skin: no rashes, warm and dry Results & Data Diagnostic Findings 4 views of his left knee confirm advanced degenerative changes, greatest medial compartment and patellofemoral joint. has complete loss of joint space of the medial compartment with bone on bone changes, including subchondral sclerosis and osteophyte formation. also noted joint space narrowing of the patellofemoral joint with patellar spurring noted. no loose bodies, no acute bony pathology noted.
--- NOTE | 2018-08-22 10:57 | Anesthesiology Consultation ---
Date of Service August 22, 2018 Assessment & Plan (1) Encounter for pre-operative examination: Plan: -Note sent to PCP re: increased A1C and hyperkalemia. Metformin increased. Repeat K was normal at 3.9. -CHECK BSG AM DOS Chart Review Chart Review: Acceptable Risk for Surgery and Patient seen in Pre Admission Testing Teaching & Discussion Instructed NPO after midnight before surgery, except medications with 15 cc of water. Medication instructions provided according to the PAT guidelines. History Surgery Operation Date: 09/10/18 07:00 Proposed Procedures p Left Total Knee Arthroplasty - Jaxson Palacio DO Height/Weight Height: 5 ft 10 in Weight: 105.2 kg Allergies Allergy/AdvReac Type Severity Reaction Status Date / Time atorvastatin AdvReac Intermediate MUSCLE Verified 07/31/18 10:43 ACHES simvastatin AdvReac Intermediate MUSCLE Verified 07/31/18 10:43 ACHES sulfamethoxazole AdvReac Intermediate MUSCLE PAIN Verified 07/31/18 10:43 trimethoprim AdvReac Intermediate MUSCLE PAIN Verified 07/31/18 10:43 Bactrim AdvReac Unknown MUSCLE PAIN Unverified 10/16/17 07:18 Medications Home Medications Medication Instructions Recorded Confirmed Last Taken amlodipine 5 mg PO QPM 06/20/18 07/31/18 06/30/18 18:00 carisoprodol 350 mg PO DAILY PRN 06/20/18 07/31/18 Unknown doxazosin 2 mg PO HS 06/20/18 07/31/18 06/30/18 18:00 ergocalciferol (vitamin D2) 50,000 unit PO 2XWK 06/20/18 07/31/18 06/30/18 08:00 [Vitamin D2] ferrous sulfate 325 mg PO BID 06/20/18 07/31/18 06/29/18 08:00 hydrocortisone 1 applic TOPICAL BID PRN 06/20/18 07/31/18 Unknown lisinopril 40 mg PO QAM 06/20/18 07/31/18 06/30/18 08:00 metformin 1,000 mg PO BID 06/20/18 07/31/18 06/30/18 08:00 multivitamin 1 tab PO QAM 06/20/18 07/31/18 06/30/18 08:00 omeprazole 20 mg PO QAM 06/20/18 07/31/18 07/01/18 06:00 psyllium husk [Metamucil] 1 tbsp PO DAILY PRN 06/20/18 07/31/18 Unknown sildenafil 25 - 100 mg PO DAILY PRN 06/20/18 07/31/18 Unknown vitamin M80-geeki acid 1,000 mcg PO WK 06/20/18 07/31/18 06/28/18 08:00 amoxicillin 4 tab PO DIRECTED PRN 07/31/18 07/31/18 Unknown biotin 5,000 mcg PO QAM 07/31/18 07/31/18 Unknown Past Medical History Medical History Diabetes mellitus, type 2 GERD (gastroesophageal reflux disease) Hx of deep venous thrombosis YRS AGO-HAPPENED SPONTANEOUSLY-WAS ON THINNERS X 6 MONTHS-NO ISSUES SINCE Hx of sleep apnea Had gastric bypass - lost 130 lbs and no longer uses CPAP. WAS NEVER FORMALLY RETESTED. Hyperlipidemia Hypertension Osteoarthritis Past Family History Family History Son Family hx of colon cancer Past Surgical History Surgical History History of appendectomy History of back surgery X 3-INCLUDING TITANIUM RODS History of carpal tunnel release R/L History of gastric bypass 2013 History of repair of rotator cuff R/L History of right knee joint replacement June 2018 History of tonsillectomy Past Anesthesia History Difficult Airway and No Family Hx of Anesthesia Complications UNABLE TO PLACE SPINAL FOR 06/2018 TKA 2/2 LUMBAR HARDWARE FROM 3 PREVIOUS BACK SURGERIES. PATIENT REC'D PNB AND GA--DIFFICULT INTUBATION, GLIDESCOPE #3. History of PONV No Motion Sickness Screening History of Motion Sickness: No Social History Smoking Status: Never smoker Do You Dip or Chew Tobacco: No Hx Alcohol Use: No Hx Substance Use: No Exercise / Class Metabolic Activity II 4-5 Yardwork/Stairs/Walk up hill (NO SOB OR CP WITH STAIRS, DOES DAILY 1 FLIGHT) Review of Systems Pt denies any recent chest pain, shortness of breath, palpitations, cough, fever or URI. Physical Exam Vital Signs BP: 117/70 P: 59bpm SPO2: 98% RA T: 97.9 F R: 16 ENMT Mouth: no dental restorations, no chipped teeth and no loose teeth Thyromental Distance: > or= 3.5 Finger Breadths (3.5) Mallampati Class: III Neck normal visual inspection; neck extension not limited Respiratory normal respiratory effort Auscultation: lungs clear to auscultation bilaterally Cardiovascular Rate/Rhythm: regular rate and regular rhythm Heart Sounds: + murmur (? I/, heart sounds somewhat obscured by breath sounds) Vessels: no carotid bruit Testing Electrocardiogram Date: 09/26/17 Findings: + NSR @ (63) Chest X-Ray Date: 09/26/17 Findings: + NAD Echocardiogram Date: 10/10/17 EF: 60-65% Normal left ventricular size and systolic function. No regional wall motion normalities. Mild concentric LVH. Type I diastolic dysfunction. Sclerotic aortic valve without significant stenosis. Mild MR. Normal estimated right ventricular systolic pressure. No prior study available for comparison. Laboratory Results 08/22/18 10:05 08/22/18 10:05 Blood Type A Negative 08/22/18 10:05 Antibody Screen NEGATIVE 08/22/18 10:05 PT 11.4 Seconds (9.0-12.0) 08/22/18 10:05 INR 1.1 (0.9-1.1) 08/22/18 10:05 APTT 28.5 Seconds (21.0-31.0) 08/22/18 10:05 Hemoglobin A1c 7.4 % (4.5-5.6) H 08/22/18 10:05 Urine Color Dark Yellow 08/22/18 10:05 Urine Appearance Clear (Clear) 08/22/18 10:05 Urine pH 5.0 (4.5-7.5) 08/22/18 10:05 Ur Specific Seymour 1.015 (1.000-1.030) 08/22/18 10:05 Urine Protein Negative (Negative) 08/22/18 10:05 Urine Glucose (UA) Negative (Negative) 08/22/18 10:05 Urine Ketones Negative (Negative) 08/22/18 10:05 Urine Nitrite Negative (Negative) 08/22/18 10:05 Ur Leukocyte Esterase Negative (Negative) 08/22/18 10:05 08/22/18 10:05 Urine Culture - Final Urine,Clean Catch No growth - less than 1,000 colonies/mL.
[2018-08-22 11:51] LABS: Basophils # (auto) 0.03 K/uL (0-0.2); Basophils % (auto) 0.4 %; Eosinophils % (auto) 1.4 %; Hematocrit (blood only) 35.6 % (42-52); Hemoglobin 11.3 g/dL (14.0-18.0); Immature Granulocytes # (auto) 0.02 K/uL (0.00-0.02); Immature Granulocytes % (auto) 0.3 %; Lymphocytes % (auto) 21.9 %; Mean Corpuscular Hgb Conc 31.7 g/dL (32-36); Mean Corpuscular Volume 89.7 fL (80-100); Mean Platelet Volume 9.1 fL (7.4-10.4); Monocytes # (auto) 0.84 K/uL (0.11-0.59); Monocytes % (auto) 11.5 %; Neutrophils % (auto) 64.5 %; Platelet Count 440 K/uL (130-400); RDW Standard Deviation 49.2 fL (36.4-46.3); Red Blood Count 3.97 M/uL (4.7-6.1); White Blood Count 7.29 K/uL (4.8-10.8)
[2018-08-22 11:55] LABS: Estimated Average Glucose 166 mg/dl
[2018-08-22 11:56] LABS: Appearance Urine Clear (Clear); Bilirubin Urine Negative (Negative); Color Urine Dark Yellow; Glucose Urine UA Negative (Negative); Ketones Urine Negative (Negative); Leukocyte Esterase Urine Negative (Negative); Nitrite Urine Negative (Negative); Protein Urine Negative (Negative); Specific Gravity Urine 1.015 (1.000-1.030); Urobilinogen Urine Negative (Negative)
[2018-08-22 12:03] LABS: INR 1.1 (0.9-1.1); Partial Thromboplastin Ratio 1.1; Partial Thromboplastin Time 28.5 Seconds (21.0-31.0); Prothrombin Time 11.4 Seconds (9.0-12.0)
[2018-08-22 12:31] LABS: Albumin Level 3.5 gm/dl (3.4-5.0); BUN Creatinine Ratio 15.2 (10-20); Calcium 9.4 mg/dl (8.5-10.1); Est GFR (African American) 109.5; Est GFR (Non-African American) 94.5; Potassium 5.3 mmol/L (3.5-5.1)
[2018-09-10] MEDS: LR 500ML BOLUS, THEN 15ML/HR IV SCH ×3 (05:30→10:23)
[2018-09-10] MEDS ORDERED: dexAMETHasone 4 MG TAB PO SCH (06:00)
[2018-09-10] MEDS ORDERED: ACETAMINOPHEN 500 MG TAB PO SCH (06:00)
[2018-09-10] MEDS ORDERED: GABAPENTIN 300 MG PO SCH (06:00)
[2018-09-10] MEDS ORDERED: LR 500ML BOLUS IV SCH (06:00)
[2018-09-10] MEDS ORDERED: FAMOTIDINE 20 MG TAB PO SCH (06:00)
[2018-09-10] MEDS ORDERED: CEFAZOLIN 2000MG 2,000 MG/15 ML SYR IV SCH (06:00)
[2018-09-10] MEDS ORDERED: ROPIVACAINE 0.5% HCL/PF 150 MG, BUPIVACAINE 0.5% MPF 30 ML, EPINEPHrine 30MG/30ML (OR U... INFIL SCH (06:00)
[2018-09-10] MEDS ORDERED: CeleBREX 200 MG CAP PO SCH (06:00)
[2018-09-10] MEDS ORDERED: LR 15ML/HR IV SCH (06:00)
[2018-09-10] MEDS ORDERED: TRANEXAMIC ACID 1,000 MG **IV Pre-op IV SCH (06:00)
[2018-09-10] MEDS ORDERED: ROPIVACAINE 0.5% 5 MG/ML 30 ML VIAL ONE (06:24)
[2018-09-10] MEDS ORDERED: BUPIVACAINE 0.5 % 5 MG/1 ML PF 10ML VIAL ONE (06:24)
[2018-09-10] MEDS ORDERED: MIDAZOLAM HCL 1 MG/ML 2ML VIAL ONE (06:27)
[2018-09-10] MEDS ORDERED: fentaNYL citrate 100 MCG/2 ML VIAL ONE ×2 (06:28→07:24)
[2018-09-10] MEDS ORDERED: TRANEXAMIC ACID 1,000 MG **IV Intra-op IV SCH (06:30)
[2018-09-10] MEDS ORDERED: ORTHO JOINT ANESTHETIC ONE (06:43)
[2018-09-10] MEDS ORDERED: POVIDONE-IODINE OP SOLN 30 ML BTL ONE (06:43)
[2018-09-10] MEDS ORDERED: BACITRACIN INJ 50,000 UNIT VIAL ONE (06:44)
--- NOTE | 2018-09-10 07:10 | History & Physical Bridge Note ---
Date of Service September 10, 2018 History & Physical Bridge Note I have examined the patient, reviewed the History & Physical and in the interval since the performance of the History & Physical I have noted the following changes of clinical significance: no changes noted
[2018-09-10] MEDS ORDERED: DEXAMETHASONE SOD INJ 4 MG/ML VIAL ONE (07:24)
[2018-09-10] MEDS ORDERED: ONDANSETRON INJ 2 MG/ML 2 ML VIAL ONE (07:24)
[2018-09-10] MEDS ORDERED: GLYCOPYRROLATE 0.2 MG/ML VIAL ONE (07:24)
[2018-09-10] MEDS ORDERED: PROPOFOL IV EMULSION 10 MG/ML 20 ML VIAL IV ONE (07:24)
[2018-09-10] MEDS ORDERED: ROCURONIUM BROMIDE 10 MG/ML 5 ML VIAL ONE (07:24)
[2018-09-10] MEDS ORDERED: NEOSTIGMINE METHYLSULFATE 5 MG/5 ML SYR ONE (07:24)
[2018-09-10] MEDS ORDERED: SUCCINYLCHOLINE CHLORIDE 20 MG/ML 10 ML VIAL ONE (07:24)
[2018-09-10] MEDS ORDERED: CISATRACURIUM BESYLATE IV SOLN 2 MG/ML 10 ML VIAL IV ONE (07:24)
[2018-09-10] MEDS ORDERED: HYDROmorphone INJ 2 MG/ML SYR/VIAL ONE (07:25)
--- NOTE | 2018-09-10 08:27 | Operative Report ---
Post Operative Report Pre & Post Diagnosis Operation Date: 09/10/18 07:00 Pre-Op Diagnosis: LEFT KNEE OSTEOARTHRITIS Post-Op Diagnosis: LEFT KNEE OSTEOARTHRITIS Procedure Operation Date: 09/10/18 07:00 Actual Procedures p Left Total Knee Arthroplasty(Left) utilizing [employer] journey 2 long block total knee arthroplasty size 6 femur 6 tibia 9 polyethylene 38 oval patella- Jaxson Palacio DO Surgeon Jaxson Palacio DO Facilities Maintenance Manager Gregory SMITH Estimated Blood Loss 5 Findings Consistent with Post-Op Diagnosis Patient presents with severe end-stage tricompartmental degenerative joint disease varus alignment subchondral sclerosis marginal osteophytes eburnated bone pseudo-ligamentous laxity of the degree flexion contracture of the left knee is been no response to conservative therapy including corticosteroid injections Visco supplementation relative rest activity modification presents for left total knee arthroplasty Specimens Bone and cartilage Drains Medium bore Hemovac Complications none Disposition Accompanied Patient To Recovery: No Disposition: Recovery Room Indications Patient presents after failed attempts at conservative management with physical therapy anti-inflammatories relative rest activity modification corticosteroid injections Visco supplementation with severe end-stage DJD [id number]-[id number] eburnated bone marginal osteophytes old findings are listed above were noted times surgery. Description of Procedure After proper prepping and draping of the left lower extremity anterior midline incision was made over the region of the extensor extensor mechanism after meticulous hemostasis was obtained and maintained in subcutaneous tissues a medial parapatellar incision was made The patella was subluxed lateralward the medial lateral gutter were cleaned from any hypertrophic synovitis and scar tissue of the distal femoral block was placed and the distal femoral osteotomy cut was made subsequently the chamfers anterior and posterior osteotomy cuts were made utilizing the 4-in-1 block the tibia was subsequently subluxed anteriorward medial and ateral meniscal remnants were excised in their entirety remnants of the anterior and posterior cruciate ligaments were excised in their entirety excellent exposure of the proximal tibia was obtained the tibial osteotomy guide was placed on the proximal tibial osteotomy cut was made once again the knee was irrigated with copious amounts of sterile saline solution the patella was subsequently everted lateralward thickened scar tissue around the patella was removed the patella was subsequently cut utilizing a freehand technique and was drilled prepared for final preparation and placement of patella socially flexion-extension gaps were checked and the equal and symmetric trials were placed to the appropriate femoral and tibial trials with poly-spacer being placed for equal flexion and extension gaps and full range of motion including extension to 0 and flexion to 140� the trial components after having been taken to recovery range of motion was subsequently removed meticulous hemostasis was obtained and maintained subsequently a knee block injection of joint cocktail including ropivacaine 0.5% 150 mg. Bupivacaine 0.5 % epinephrine 1-200,030 mL's toradol 30 mg dexamethasone 4 mg ketamine 10 mg clonidine 100 micrograms normal saline solution 30 mg was infiltrated into the soft tissues of the posterior knee medial lateral gutters and periosteal synovium special attention was paid to protect neurovascular structures at all times subsequently trial components having been removed the knee was irrigated with sterile saline solution. debris was removed the proximal tibia was subsequently prepared and was made ready for the placement of the tibial component tibial component was also cemented and tamped into position the femoral component was subsequently placed and cemented in the position the patellar component was subsequently cemented in position because hemostasis once again obtained and maintained wound having been thoroughly irrigated with debridement and debridement lavage was performed as well as a medial parapatellar incision closed with #1 Vicryl in interrupted fashion subcutaneous was closed with #2 Vicryl skin was closed with skin clips. PA-C was necessary for prepping and drapping as well as wound closure of deep fascia Sub cutaneous tissue and skin and was necessary for the case. A sterile compressive dressing was placed patient was taken to recovery in stable condition of report dictated by Hakeem I attest to the content of the Intraoperative Record and any orders documented therein. Any exceptions are noted below. I attest to the content of the Intraoperative Record and any orders documented therein. Any exceptions are noted below.
[2018-09-10] MEDS ORDERED: ONDANSETRON INJ 2 MG/ML 2 ML VIAL IV PRN ×2 (08:50→10:20)
[2018-09-10] MEDS ORDERED: ePHEDrine sulfate 50 MG/ML AMP IV PRN (08:50)
[2018-09-10] MEDS ORDERED: ATROPINE SULFATE 0.1 MG/ML 10ML SYR IV PRN (08:50)
[2018-09-10] MEDS ORDERED: fentaNYL citrate 100 MCG/2 ML VIAL IV PRN (08:50)
--- NOTE | 2018-09-10 09:30 | XRay Report ---
XR knee LT 2V routine CLINICAL HISTORY: 68 years-old Male presenting with Surgical Post Op. TECHNIQUE: Frontal and crosstable lateral views of the left knee were obtained. COMPARISON: 08/22/2018. FINDINGS: Total left knee arthroplasty with patellar resurfacing new from prior. No malalignment. No periprosth etic fracture. Surgical drain in place. Expected intra-articular and soft tissue emphysema. IMPRESSION: Expected postsurgical appearance status post total left knee arthroplasty with patellar resurfacing. Electronically signed by: Larry Fraga M.D. 09/10/2018 9:28 AM
--- NOTE | 2018-09-10 10:11 | Anesthesiology Progress Note ---
Date of Service September 10, 2018 Anesthesia Post Procedure Vital Signs Vital Signs: Temp Pulse Pulse Resp BP BP Pulse Ox 09/10/18 09:45 36.6 C 42 L 16 103/53 L 94 09/10/18 09:35 49 L 12 113/64 95 09/10/18 09:25 48 L 12 114/60 97 09/10/18 09:15 48 L 15 111/57 L 97 09/10/18 09:07 36.0 C L 48 L 12 111/57 L 98 09/10/18 06:16 36.7 C 59 L 20 143/75 H 96 Pain Intensity Left Knee: Pain Intensity: 2 Notes Mental Status: alert / awake / arousable and participated in evaluation Patient Amnestic to Procedure: Yes Nausea / Vomiting: adequately controlled Pain: adequately controlled Airway Patency, RR, SpO2: stable & adequate BP & HR: stable & adequate Hydration State: stable & adequate Anesthetic Complications: no major complications apparent and Pt Satisfied with anesthetic care
[2018-09-10] MEDS ORDERED: NALOXONE HCL 0.4 MG/1 ML VIAL/CARP IV PRN (10:20)
[2018-09-10] MEDS ORDERED: MAGNESIUM HYDROXIDE SUSP 30 ML UDC PO PRN (10:20)
[2018-09-10] MEDS ORDERED: BISACODYL 10 MG SUPP PR PRN (10:20)
[2018-09-10] MEDS ORDERED: CARISOPRODOL 350 MG TABLET PO PRN (10:20)
[2018-09-10] MEDS ORDERED: OXYCODONE HCL IR 5 MG TAB (IMMEDIATE RELEASE) PO PRN (10:20)
[2018-09-10] MEDS ORDERED: METOCLOPRAMIDE HCL INJ 5 MG/ML 2 ML VIAL IV PRN (10:20)
[2018-09-10] MEDS ORDERED: PHARMACY GLYCEMIC MGMT CONSULT PRN (10:31)
[2018-09-10] MEDS ORDERED: GLUCOSE 10 TABS/TUBE PO PRN (10:53)
[2018-09-10] MEDS ORDERED: CARBOHYDRATES FOR HYPOGLYCEMIA PO PRN (10:53)
[2018-09-10] MEDS ORDERED: DEXTROSE 50% 50 ML SYRINGE IV PRN (10:53)
[2018-09-10] MEDS ORDERED: GLUCAGON FOR INJ 1 MG VIAL SQ PRN (10:53)
[2018-09-10] MEDS ORDERED: GLUCOSE 40% GEL 15 GM TUBE PO PRN (10:53)
[2018-09-10] MEDS: SODIUM CHLORIDE 0.9% 1000ML 1,000 ML IV SCH ×2 (10:55→21:31)
[2018-09-10] MEDS ORDERED: INSULIN GLARGINE SOLOSTAR 100 UNITS/ML 3 ML PEN SC ONE (11:30)
--- NOTE | 2018-09-10 11:32 | Pharmacy Report ---
Glycemic Control Consultation - Date of Service September 10, 2018 - Scope Scope: Glycemic Pharmacist consulted by Pina Elizondo on 09/10/18 for glycemic control and to write orders per [facility] inpatient glycemic control protocol - Objective Weight: 105.2 kg Accuchecks BSG (last 24hrs): 09/10/18 09/10/18 05:42 09:14 POC Glucose 144 H 171 H HbA1c: Hemoglobin A1c 7.4 % (4.5-5.6) H 08/22/18 10:05 - Recent Pertinent Medications Outpatient Anti-diabetic Regimen: * metformin 1000 mg PO BID Risk Factors for Insulin Resistance: * Steroids: Ortho, DXM 8 mg PO, & DXM 4 mg IV given in OR * Recent Surgery: s/p L TKA * Diet: T2DM - Assessment & Plan Assessment & Plan: ASSESSMENT: * 68 yr old male s/p L TKA. * Pt is maintained on oral antidiabetic agents as an outpatient * Will hold oral agents for admission and utilize SQ basal bolus insulin regimen which is the recommended regimen for inpatient glycemic control. * Will initiate weight based insulin dosing for insulin na�ve patient and titrate based on BSG trends. Tight parameters will be used for POD #0 due to administration of steroids in the OR. * Will target BSG < 150 mg/dL to reduce the risk of post op infection/ complication PLAN FOR INPATIENT GLYCEMIC CONTROL: * Holding outpatient oral diabetes medications * Basal insulin * Lantus 26 units SQ x 1, then per scale HS: * 0 units for BSG < 140 * 10 units for BSG 140-180 * 18 units for BSG > 180 * Bolus insulin * NovoLog per scale ACHS or Q6hrs while NPO * Goal Range: Low 110 mg/dL - High 140 mg/dL * Correction Factor: 15 mg/dL/unit * Nutritional / Prandial insulin per carb ratio of 1 unit per 5 grams CHO consumed * Add overnight checks at 00 and 04 for POD #0 * Please note that the plan above was derived based on current level of insulin resistance and hospital stress. These recommendations are appropriate for inpatient admission only. Plan of care upon discharge will need to be reassessed to avoid potential outpatient hypo/hyperglycemia. Thank you.
[2018-09-10] MEDS: KETOROLAC TROMETHAMINE 15 MG/ML VIAL IV SCH ×2 (12:16→18:34)
[2018-09-10] MEDS: INSULIN ASPART 100 UNITS/ML 3 ML PEN SC SCH ×3 (13:28→21:28)
[2018-09-10] MEDS: ACETAMINOPHEN 500 MG TAB PO SCH ×2 (13:29→21:30)
[2018-09-10] MEDS: CEFAZOLIN 2000MG 2,000 MG/15 ML SYR IV SCH (16:31)
[2018-09-10] MEDS: SENNA 8.6 MG TAB PO SCH (20:38)
[2018-09-10] MEDS: AMLODIPINE BESYLATE 5 MG TAB PO SCH (20:38)
[2018-09-10] MEDS: DOCUSATE SODIUM 100 MG CAP PO SCH (20:39)
[2018-09-10] MEDS: DOXAZosin MESYLATE TAB 2 MG TAB PO SCH (20:39)
[2018-09-10] MEDS: ASPIRIN 81 MG ECTAB PO SCH (20:39)
[2018-09-10] MEDS: FERROUS SULFATE 325 MG TAB PO SCH (20:40)
[2018-09-10] MEDS ORDERED: INSULIN GLARGINE SOLOSTAR 100 UNITS/ML 3 ML PEN SC SCH (21:00)
[2018-09-11] MEDS: CEFAZOLIN 2000MG 2,000 MG/15 ML SYR IV SCH (00:01)
[2018-09-11] MEDS: KETOROLAC TROMETHAMINE 15 MG/ML VIAL IV SCH ×2 (00:02→05:19)
[2018-09-11] MEDS: INSULIN ASPART 100 UNITS/ML 3 ML PEN SC SCH ×6 (00:31→22:15)
[2018-09-11] MEDS ORDERED: Nursing to Pharmacy Communication ONE (01:20)
[2018-09-11] MEDS: ACETAMINOPHEN 500 MG TAB PO SCH (05:18)
[2018-09-11 07:14] LABS: Hematocrit (blood only) 29.3 % (42-52); Hemoglobin 9.5 g/dL (14.0-18.0); Mean Corpuscular Hgb Conc 32.4 g/dL (32-36); Mean Platelet Volume 8.5 fL (7.4-10.4); Platelet Count 384 K/uL (130-400); RDW Coefficient of Variation 15.2 % (11.5-14.5); RDW Standard Deviation 48.7 fL (36.4-46.3); Red Blood Count 3.33 M/uL (4.7-6.1); White Blood Count 8.95 K/uL (4.8-10.8)
[2018-09-11 07:52] LABS: BUN Creatinine Ratio 17.1 (10-20); Calcium 7.9 mg/dl (8.5-10.1); Creatinine Clr Calc Pharmacy 103.1 ml/min; Est GFR (African American) 104.4; Potassium 3.7 mmol/L (3.5-5.1)
--- NOTE | 2018-09-11 08:00 | Anesthesiology Progress Note ---
Date of Service September 11, 2018 Anesthesia Post Procedure Vital Signs Vital Signs: Temp Pulse Pulse Resp BP Pulse Ox 09/11/18 07:24 36.4 C L 48 L 14 136/76 93 09/11/18 04:00 36.8 C 55 L 18 148/76 H 93 09/10/18 23:25 36.5 C 49 L 16 116/63 92 09/10/18 20:07 36.4 C L 54 L 16 130/69 90 09/10/18 12:02 53 L 18 138/83 93 09/10/18 11:05 48 L 18 126/68 92 09/10/18 10:31 36.7 C 49 L 16 119/61 94 09/10/18 10:15 36.7 C 45 L 16 106/68 92 09/10/18 09:45 36.6 C 42 L 16 103/53 L 94 09/10/18 09:35 49 L 12 113/64 95 09/10/18 09:25 48 L 12 114/60 97 09/10/18 09:15 48 L 15 111/57 L 97 09/10/18 09:07 36.0 C L 48 L 12 111/57 L 98 Pain Intensity Left Knee: Pain Intensity: 2 Notes Mental Status: alert / awake / arousable and participated in evaluation Patient Amnestic to Procedure: Yes Nausea / Vomiting: adequately controlled Pain: adequately controlled Airway Patency, RR, SpO2: stable & adequate BP & HR: stable & adequate Hydration State: stable & adequate Anesthetic Complications: no major complications apparent and Pt Satisfied with anesthetic care
--- NOTE | 2018-09-11 08:10 | Orthopedic Progress Note ---
Date of Service September 11, 2018 Assessment & Plan (1) History of total left knee replacement (TKR): POD #1 s/p Left TKA pt/ot dvt proph with [facility]/SCD/ASA plan for d/c home with HHPT when stable, likely Saturday states the oxycodone always makes his mouth dry but did not have this issue with Percocet. will d/c oxy and tylenol switch to percocet, advised on monitoring acetaminophen intake. Subjective POD #1 s/p Left TKA Constitutional: no fever, no chills and no sweats Respiratory: no cough and no dyspnea Cardiovascular: no chest pain, no dyspnea and no orthopnea Physical Exam 2 Vital Signs (Past 24 Hours): Last Vital Signs Temp 36.4 C L 09/11/18 07:24 Pulse 48 L 09/11/18 07:24 Resp 14 09/11/18 07:24 BP 136/76 09/11/18 07:24 Pulse Ox 93 09/11/18 07:24 Constitutional: WD/WN, vitals as above no acute distress Musculoskeletal: dressing clean and dry, DP palpable, negative tank. NVDI, able to wiggle toes, ankle strength 5/5 Results & Data Laboratory Results Laboratory Results WBC 8.95 K/uL (4.8-10.8) 09/11/18 06:57 RBC 3.33 M/uL (4.7-6.1) L 09/11/18 06:57 Hgb 9.5 g/dL (14.0-18.0) L 09/11/18 06:57 Hct 29.3 % (42-52) L 09/11/18 06:57 MCV 88.0 fL (80-100) 09/11/18 06:57 MCH 28.5 pg (25-34) 09/11/18 06:57 MCHC 32.4 g/dL (32-36) 09/11/18 06:57 RDW Std Deviation 48.7 fL (36.4-46.3) H 09/11/18 06:57 RDW Coeff of Francheska 15.2 % (11.5-14.5) H 09/11/18 06:57 Plt Count 384 K/uL (130-400) 09/11/18 06:57 MPV 8.5 fL (7.4-10.4) 09/11/18 06:57 Immature Gran % (Auto) 0.3 % 08/22/18 10:05 Neut % (Auto) 64.5 % 08/22/18 10:05 Lymph % (Auto) 21.9 % 08/22/18 10:05 [place] % (Auto) 11.5 % 08/22/18 10:05 Eos % (Auto) 1.4 % 08/22/18 10:05 Baso % (Auto) 0.4 % 08/22/18 10:05 Immature Gran # (Auto) 0.02 K/uL (0.00-0.02) 08/22/18 10:05 Neut # (Auto) 4.70 K/uL (1.4-6.5) 08/22/18 10:05 Lymph # (Auto) 1.60 K/uL (1.2-3.4) 08/22/18 10:05 [place] # (Auto) 0.84 K/uL (0.11-0.59) H 08/22/18 10:05 Eos # (Auto) 0.10 K/uL (0-0.5) 08/22/18 10:05 Baso # (Auto) 0.03 K/uL (0-0.2) 08/22/18 10:05 PT 11.4 Seconds (9.0-12.0) 08/22/18 10:05 INR 1.1 (0.9-1.1) 08/22/18 10:05 APTT 28.5 Seconds (21.0-31.0) 08/22/18 10:05 PTT Ratio 1.1 08/22/18 10:05 Sodium 132 mmol/L (136-145) L 09/11/18 06:57 Potassium 3.7 mmol/L (3.5-5.1) 09/11/18 06:57 Chloride 100 mmol/L (98-107) 09/11/18 06:57 Carbon Dioxide 26 mmol/L (21-32) 09/11/18 06:57 Anion Gap 6.0 (3-11) 09/11/18 06:57 BUN 14 mg/dl (7-18) 09/11/18 06:57 Creatinine 0.81 mg/dl (0.6-1.4) 09/11/18 06:57 Est Cr Clr Drug Dosing 103.1 ml/min 09/11/18 06:57 Est GFR ( Amer) 104.4 09/11/18 06:57 Est GFR (Non-Af Amer) 90.0 09/11/18 06:57 BUN/Creatinine Ratio 17.1 (10-20) 09/11/18 06:57 Glucose 92 mg/dl (70-99) 09/11/18 06:57 POC Glucose 101 (70-99) H 09/11/18 04:00 Estimat Average Glucose 166 mg/dl 08/22/18 10:05 Hemoglobin A1c 7.4 % (4.5-5.6) H 08/22/18 10:05 Calcium 7.9 mg/dl (8.5-10.1) L 09/11/18 06:57 Albumin 3.5 gm/dl (3.4-5.0) 08/22/18 10:05 Urine Color Dark Yellow 08/22/18 10:05 Urine Appearance Clear (Clear) 08/22/18 10:05 Urine pH 5.0 (4.5-7.5) 08/22/18 10:05 Ur Specific [place] 1.015 (1.000-1.030) 08/22/18 10:05 Urine Protein Negative (Negative) 08/22/18 10:05 Urine Glucose (UA) Negative (Negative) 08/22/18 10:05 Urine Ketones Negative (Negative) 08/22/18 10:05 Urine Blood Negative (Negative) 08/22/18 10:05 Urine Nitrite Negative (Negative) 08/22/18 10:05 Urine Bilirubin Negative (Negative) 08/22/18 10:05 Urine Urobilinogen Negative (Negative) 08/22/18 10:05 Ur Leukocyte Esterase Negative (Negative) 08/22/18 10:05 Blood Type A Negative 08/22/18 10:05 Antibody Screen NEGATIVE 08/22/18 10:05 Diagnostic Findings XR knee LT 2V routine CLINICAL HISTORY: 68 years-old Male presenting with Surgical Post Op. TECHNIQUE: Frontal and crosstable lateral views of the left knee were obtained. COMPARISON: 08/22/2018. FINDINGS: Total left knee arthroplasty with patellar resurfacing new from prior. No malalignment. No periprosthetic fracture. Surgical drain in place. Expected intra-articular and soft tissue emphysema. IMPRESSION: Expected postsurgical appearance status post total left knee arthroplasty with patellar resurfacing.
--- NOTE | 2018-09-11 08:36 | Orthopedic Progress Note ---
Date of Service September 11, 2018 Assessment & Plan (1) Status post left knee replacement: 68 yo male stable POD #1 s/p left TKA 1. Med management 2. DVT prophylaxis- ASA, SCDs 3. PT/OT 4. D/C planning- home w/ HH Subjective Pt resting in bed, pain controlled, denies complaints Physical Exam 2 Vital Signs (Past 24 Hours): Last Vital Signs Temp 36.4 C L 09/11/18 07:24 Pulse 48 L 09/11/18 07:24 Resp 14 09/11/18 07:24 BP 136/76 09/11/18 07:24 Pulse Ox 93 09/11/18 07:24 Physical Exam: Toes mobile, N/V/I, dressing and drain in place Results & Data Laboratory Results 09/11/18 09/11/18 09/11/18 Range/Units 07:57 06:57 06:57 WBC 8.95 (4.8-10.8) K/uL RBC 3.33 L (4.7-6.1) M/uL Hgb 9.5 L (14.0-18.0) g/dL Hct 29.3 L (42-52) % MCV 88.0 (80-100) fL MCH 28.5 (25-34) pg MCHC 32.4 (32-36) g/dL RDW Std Deviation 48.7 H (36.4-46.3) fL RDW Coeff of Francheska 15.2 H (11.5-14.5) % Plt Count 384 (130-400) K/uL MPV 8.5 (7.4-10.4) fL Sodium 132 L (136-145) mmol/L Potassium 3.7 (3.5-5.1) mmol/L Chloride 100 (98-107) mmol/L Carbon Dioxide 26 (21-32) mmol/L Anion Gap 6.0 (3-11) BUN 14 (7-18) mg/dl Creatinine 0.81 (0.6-1.4) mg/dl Est Cr Clr Drug Dosing 103.1 ml/min Est GFR ( Amer) 104.4 Est GFR (Non-Af Amer) 90.0 BUN/Creatinine Ratio 17.1 (10-20) Glucose 92 (70-99) mg/dl POC Glucose 96 (70-99) Calcium 7.9 L (8.5-10.1) mg/dl 09/11/18 09/11/18 09/10/18 Range/Units 04:00 00:20 20:51 WBC (4.8-10.8) K/uL RBC (4.7-6.1) M/uL Hgb (14.0-18.0) g/dL Hct (42-52) % MCV (80-100) fL MCH (25-34) pg MCHC (32-36) g/dL RDW Std Deviation (36.4-46.3) fL RDW Coeff of Francheska (11.5-14.5) % Plt Count (130-400) K/uL MPV (7.4-10.4) fL Sodium (136-145) mmol/L Potassium (3.5-5.1) mmol/L Chloride (98-107) mmol/L Carbon Dioxide (21-32) mmol/L Anion Gap (3-11) BUN (7-18) mg/dl Creatinine (0.6-1.4) mg/dl Est Cr Clr Drug Dosing ml/min Est GFR ( Amer) Est GFR (Non-Af Amer) BUN/Creatinine Ratio (10-20) Glucose (70-99) mg/dl POC Glucose 101 H 99 196 H (70-99) Calcium (8.5-10.1) mg/dl 09/10/18 09/10/18 09/10/18 Range/Units 17:11 12:00 09:14 WBC (4.8-10.8) K/uL RBC (4.7-6.1) M/uL Hgb (14.0-18.0) g/dL Hct (42-52) % MCV (80-100) fL MCH (25-34) pg MCHC (32-36) g/dL RDW Std Deviation (36.4-46.3) fL RDW Coeff of Francheska (11.5-14.5) % Plt Count (130-400) K/uL MPV (7.4-10.4) fL Sodium (136-145) mmol/L Potassium (3.5-5.1) mmol/L Chloride (98-107) mmol/L Carbon Dioxide (21-32) mmol/L Anion Gap (3-11) BUN (7-18) mg/dl Creatinine (0.6-1.4) mg/dl Est Cr Clr Drug Dosing ml/min Est GFR ( Amer) Est GFR (Non-Af Amer) BUN/Creatinine Ratio (10-20) Glucose (70-99) mg/dl POC Glucose 167 H 185 H 171 H (70-99) Calcium (8.5-10.1) mg/dl
[2018-09-11] MEDS ORDERED: INSULIN GLARGINE SOLOSTAR 100 UNITS/ML 3 ML PEN SC ONE (09:00)
[2018-09-11] MEDS ORDERED: OXYCODONE/ACETAMINOPHEN 5mg/325mg TAB ONE (09:16)
[2018-09-11] MEDS: FERROUS SULFATE 325 MG TAB PO SCH ×2 (09:18→21:28)
[2018-09-11] MEDS: MULTIVITAMIN TAB PO SCH (09:18)
[2018-09-11] MEDS: DOCUSATE SODIUM 100 MG CAP PO SCH ×2 (09:18→21:31)
[2018-09-11] MEDS: ASPIRIN 81 MG ECTAB PO SCH ×2 (09:18→21:30)
[2018-09-11] MEDS: NAPROXEN 250 MG TAB PO SCH ×2 (11:01→21:29)
[2018-09-11] MEDS: HYDROmorphone INJ 1 MG/ML SYRINGE IV PRN ×2 (13:04→21:35)
[2018-09-11] MEDS: OXYCODONE/ACETAMINOPHEN 5mg/325mg TAB PO PRN (18:46)
[2018-09-11] MEDS: SENNA 8.6 MG TAB PO SCH (21:29)
[2018-09-11] MEDS: DOXAZosin MESYLATE TAB 2 MG TAB PO SCH (21:30)
[2018-09-11] MEDS: AMLODIPINE BESYLATE 5 MG TAB PO SCH (21:31)
[2018-09-12] MEDS: OXYCODONE/ACETAMINOPHEN 5mg/325mg TAB PO PRN ×2 (01:52→08:01)
[2018-09-12] MEDS: HYDROmorphone INJ 1 MG/ML SYRINGE IV PRN ×2 (04:44→12:31)
--- NOTE | 2018-09-12 07:14 | Orthopedic Progress Note ---
Date of Service September 12, 2018 Assessment & Plan (1) Status post left knee replacement: 68 yo male stable POD #2 s/p left TKA 1. Med management 2. DVT prophylaxis- ASA, SCDs 3. PT/OT 4. D/C planning- home w/ HH Subjective POD #2 s/p Left TKA Pt resting in bed, pain controlled, denies complaints Constitutional: no fever, no chills and no sweats Cardiovascular: no chest pain Gastrointestinal: no nausea and no vomiting Physical Exam 2 Vital Signs (Past 24 Hours): Last Vital Signs Temp 36.3 C L 09/12/18 06:31 Pulse 68 09/12/18 06:31 Resp 18 09/12/18 06:31 BP 143/79 H 09/12/18 06:31 Pulse Ox 94 09/12/18 06:31 Musculoskeletal: NVDI, calf SNT, negative tank sign. DP palpable, able to wiggle toes/ankle movement without difficulty. MAXX vac dressing clean dry and intact. expected post-operative bruising noted. Results & Data Laboratory Results Laboratory Results WBC 8.95 K/uL (4.8-10.8) 09/11/18 06:57 RBC 3.33 M/uL (4.7-6.1) L 09/11/18 06:57 Hgb 9.5 g/dL (14.0-18.0) L 09/11/18 06:57 Hct 29.3 % (42-52) L 09/11/18 06:57 MCV 88.0 fL (80-100) 09/11/18 06:57 MCH 28.5 pg (25-34) 09/11/18 06:57 MCHC 32.4 g/dL (32-36) 09/11/18 06:57 RDW Std Deviation 48.7 fL (36.4-46.3) H 09/11/18 06:57 RDW Coeff of Francheska 15.2 % (11.5-14.5) H 09/11/18 06:57 Plt Count 384 K/uL (130-400) 09/11/18 06:57 MPV 8.5 fL (7.4-10.4) 09/11/18 06:57 Immature Gran % (Auto) 0.3 % 08/22/18 10:05 Neut % (Auto) 64.5 % 08/22/18 10:05 Lymph % (Auto) 21.9 % 08/22/18 10:05 [place] % (Auto) 11.5 % 08/22/18 10:05 Eos % (Auto) 1.4 % 08/22/18 10:05 Baso % (Auto) 0.4 % 08/22/18 10:05 Immature Gran # (Auto) 0.02 K/uL (0.00-0.02) 08/22/18 10:05 Neut # (Auto) 4.70 K/uL (1.4-6.5) 08/22/18 10:05 Lymph # (Auto) 1.60 K/uL (1.2-3.4) 08/22/18 10:05 [place] # (Auto) 0.84 K/uL (0.11-0.59) H 08/22/18 10:05 Eos # (Auto) 0.10 K/uL (0-0.5) 08/22/18 10:05 Baso # (Auto) 0.03 K/uL (0-0.2) 08/22/18 10:05 PT 11.4 Seconds (9.0-12.0) 08/22/18 10:05 INR 1.1 (0.9-1.1) 08/22/18 10:05 APTT 28.5 Seconds (21.0-31.0) 08/22/18 10:05 PTT Ratio 1.1 08/22/18 10:05 Sodium 132 mmol/L (136-145) L 09/11/18 06:57 Potassium 3.7 mmol/L (3.5-5.1) 09/11/18 06:57 Chloride 100 mmol/L (98-107) 09/11/18 06:57 Carbon Dioxide 26 mmol/L (21-32) 09/11/18 06:57 Anion Gap 6.0 (3-11) 09/11/18 06:57 BUN 14 mg/dl (7-18) 09/11/18 06:57 Creatinine 0.81 mg/dl (0.6-1.4) 09/11/18 06:57 Est Cr Clr Drug Dosing 103.1 ml/min 09/11/18 06:57 Est GFR ( Amer) 104.4 09/11/18 06:57 Est GFR (Non-Af Amer) 90.0 09/11/18 06:57 BUN/Creatinine Ratio 17.1 (10-20) 09/11/18 06:57 Glucose 92 mg/dl (70-99) 09/11/18 06:57 POC Glucose 78 (70-99) 09/12/18 07:02 Estimat Average Glucose 166 mg/dl 08/22/18 10:05 Hemoglobin A1c 7.4 % (4.5-5.6) H 08/22/18 10:05 Calcium 7.9 mg/dl (8.5-10.1) L 09/11/18 06:57 Albumin 3.5 gm/dl (3.4-5.0) 08/22/18 10:05 Urine Color Dark Yellow 08/22/18 10:05 Urine Appearance Clear (Clear) 08/22/18 10:05 Urine pH 5.0 (4.5-7.5) 08/22/18 10:05 Ur Specific [place] 1.015 (1.000-1.030) 08/22/18 10:05 Urine Protein Negative (Negative) 08/22/18 10:05 Urine Glucose (UA) Negative (Negative) 08/22/18 10:05 Urine Ketones Negative (Negative) 08/22/18 10:05 Urine Blood Negative (Negative) 08/22/18 10:05 Urine Nitrite Negative (Negative) 08/22/18 10:05 Urine Bilirubin Negative (Negative) 08/22/18 10:05 Urine Urobilinogen Negative (Negative) 08/22/18 10:05 Ur Leukocyte Esterase Negative (Negative) 08/22/18 10:05 Blood Type A Negative 08/22/18 10:05 Antibody Screen NEGATIVE 08/22/18 10:05 Diagnostic Findings XR knee LT 2V routine CLINICAL HISTORY: 68 years-old Male presenting with Surgical Post Op. TECHNIQUE: Frontal and crosstable lateral views of the left knee were obtained. COMPARISON: 08/22/2018. FINDINGS: Total left knee arthroplasty with patellar resurfacing new from prior. No malalignment. No periprosthetic fracture. Surgical drain in place. Expected intra-articular and soft tissue emphysema. IMPRESSION: Expected postsurgical appearance status post total left knee arthroplasty with patellar resurfacing.
--- NOTE | 2018-09-12 07:22 | Discharge Summary ---
Date of Service Date of Discharge: September 12, 2018 Date of Admission: 09/10/18 Admission HPI Per Admitting Provider Mr Washington is a pleasant 68 year old male who presents for preop evaluation prior to left total knee replacement scheduled for 09-10-18 at [facility] to be performed by Dr Palacio. He recently underwent right TKA in June and is doing well. He states he has been having pain in this knee for several years now and had gradually worsened. He states his pain is currently 5/10, worst is 8/10. he has tried oral antiinflammatories including Ibuprofen and Aleve, he has also undergone previous injections including cortisone and visco without relief. His pain is now affecting his daily activities including walking, standing, and using stairs. He has tried previous NSAID, injections as well as physical therapy. He admits to decreased ROM, crepitation and stiffness. his pain does occassionally wake him at night. at this point and time has failed conservative measures and would like to proceed with left total knee replacement. Principal Diagnosis left knee osteoarthritis Discharge Exam Constitutional WD/WN, vitals as above no acute distress Musculoskeletal NVDI, calf SNT, negative tank sign. DP palpable, able to wiggle toes/ankle movement without difficulty. MAXX dressing clean dry and intact. expected post- operative bruising noted. Discharge Data Allergies Allergy/AdvReac Type Severity Reaction Status Date / Time atorvastatin AdvReac Intermediate MUSCLE Verified 09/10/18 06:06 ACHES simvastatin AdvReac Intermediate MUSCLE Verified 09/10/18 06:06 ACHES sulfamethoxazole AdvReac Intermediate MUSCLE PAIN Verified 09/10/18 06:06 trimethoprim AdvReac Intermediate MUSCLE PAIN Verified 09/10/18 06:06 Bactrim AdvReac Unknown MUSCLE PAIN Unverified 10/16/17 07:18 Consultations 09/10/18 10:20 Consult Case Management - Discharge Planning Routine Procedures Performed Operation Date: 09/10/18 07:00 Actual Procedures p Left Total Knee Arthroplasty(Left) - Jaxson Palacio DO Ordered Studies 09/10/18 05:00 US - OR guided needle placemen Routine Hospital Course (1) Status post left knee replacement: 68 yo male stable POD #2 s/p left TKA 1. Med management 2. DVT prophylaxis- ASA, SCDs 3. PT/OT 4. D/C planning- home w/ HH Patient was a same day admission after undergoing a successful left TKA. He tolerated the procedure well. Post-operatively, his activity was progressed and well tolerated. Please refer to daily progress notes and PT notes for complete details. After exam on 09/12/18, patient felt to be stable for discharge home with HHPT. Patient will f/u in the office in 2 weeks for further evaluation including x-rays and incision check, sooner if having any issues or concerns. Below are pertinent labs/studies during their hospital stay: Laboratory Results WBC 8.95 K/uL (4.8-10.8) 09/11/18 06:57 RBC 3.33 M/uL (4.7-6.1) L 09/11/18 06:57 Hgb 9.5 g/dL (14.0-18.0) L 09/11/18 06:57 Hct 29.3 % (42-52) L 09/11/18 06:57 MCV 88.0 fL (80-100) 09/11/18 06:57 MCH 28.5 pg (25-34) 09/11/18 06:57 MCHC 32.4 g/dL (32-36) 09/11/18 06:57 RDW Std Deviation 48.7 fL (36.4-46.3) H 09/11/18 06:57 RDW Coeff of Francheska 15.2 % (11.5-14.5) H 09/11/18 06:57 Plt Count 384 K/uL (130-400) 09/11/18 06:57 MPV 8.5 fL (7.4-10.4) 09/11/18 06:57 Immature Gran % (Auto) 0.3 % 08/22/18 10:05 Neut % (Auto) 64.5 % 08/22/18 10:05 Lymph % (Auto) 21.9 % 08/22/18 10:05 Carbon % (Auto) 11.5 % 08/22/18 10:05 Eos % (Auto) 1.4 % 08/22/18 10:05 Baso % (Auto) 0.4 % 08/22/18 10:05 Immature Gran # (Auto) 0.02 K/uL (0.00-0.02) 08/22/18 10:05 Neut # (Auto) 4.70 K/uL (1.4-6.5) 08/22/18 10:05 Lymph # (Auto) 1.60 K/uL (1.2-3.4) 08/22/18 10:05 Carbon # (Auto) 0.84 K/uL (0.11-0.59) H 08/22/18 10:05 Eos # (Auto) 0.10 K/uL (0-0.5) 08/22/18 10:05 Baso # (Auto) 0.03 K/uL (0-0.2) 08/22/18 10:05 PT 11.4 Seconds (9.0-12.0) 08/22/18 10:05 INR 1.1 (0.9-1.1) 08/22/18 10:05 APTT 28.5 Seconds (21.0-31.0) 08/22/18 10:05 PTT Ratio 1.1 08/22/18 10:05 Sodium 132 mmol/L (136-145) L 09/11/18 06:57 Potassium 3.7 mmol/L (3.5-5.1) 09/11/18 06:57 Chloride 100 mmol/L (98-107) 09/11/18 06:57 Carbon Dioxide 26 mmol/L (21-32) 09/11/18 06:57 Anion Gap 6.0 (3-11) 09/11/18 06:57 BUN 14 mg/dl (7-18) 09/11/18 06:57 Creatinine 0.81 mg/dl (0.6-1.4) 09/11/18 06:57 Est Cr Clr Drug Dosing 103.1 ml/min 09/11/18 06:57 Est GFR ( Amer) 104.4 09/11/18 06:57 Est GFR (Non-Af Amer) 90.0 09/11/18 06:57 BUN/Creatinine Ratio 17.1 (10-20) 09/11/18 06:57 Glucose 92 mg/dl (70-99) 09/11/18 06:57 POC Glucose 78 (70-99) 09/12/18 07:02 Estimat Average Glucose 166 mg/dl 08/22/18 10:05 Hemoglobin A1c 7.4 % (4.5-5.6) H 08/22/18 10:05 Calcium 7.9 mg/dl (8.5-10.1) L 09/11/18 06:57 Albumin 3.5 gm/dl (3.4-5.0) 08/22/18 10:05 Urine Color Dark Yellow 08/22/18 10:05 Urine Appearance Clear (Clear) 08/22/18 10:05 Urine pH 5.0 (4.5-7.5) 08/22/18 10:05 Ur Specific [place] 1.015 (1.000-1.030) 08/22/18 10:05 Urine Protein Negative (Negative) 08/22/18 10:05 Urine Glucose (UA) Negative (Negative) 08/22/18 10:05 Urine Ketones Negative (Negative) 08/22/18 10:05 Urine Blood Negative (Negative) 08/22/18 10:05 Urine Nitrite Negative (Negative) 08/22/18 10:05 Urine Bilirubin Negative (Negative) 08/22/18 10:05 Urine Urobilinogen Negative (Negative) 08/22/18 10:05 Ur Leukocyte Esterase Negative (Negative) 08/22/18 10:05 Blood Type A Negative 08/22/18 10:05 Antibody Screen NEGATIVE 08/22/18 10:05 Total Time Total Time Spent Total Time Spent (In Minutes): 20 Total Time Includes: Examination of the Patient, Discharge Planning and Medication Reconciliation Discharge Plan Discharge Items Patient Disposition: Home - Home Health Services Reason For Visit: LEFT KNEE OSTEOARTHRITIS Discharge Diagnosis: left total knee replacement Condition: Good Discharge Goals: Decrease discomfort, Improve function and Increase independence Activity: Per 'Additional Instructions' section Lifting: Wait until after follow-up appointment Weightbearing: Left weightbearing Weightbearing Comment: WBAT with walker Non-emergency contact: Primary Care Provider and Surgeon Call non-emergency contact if: you have any medication questions, your temperature is above 100.5, your wound has increased redness, your wound has increased drainage and your wound pain has increased Follow-up/Referrals: Rolando Posey MD [Primary Care Provider] - Diet: Regular Addtl Provider Instructions: ACTIVITY RECOMMENDATIONS: SELF CARE INSTRUCTIONS AFTER TOTAL KNEE REPLACEMENT A. You may need to continue a physical therapy program after discharge from the hospital. There are several options available to you. Your doctor will assist you in selecting the best one for you. 1. An out-patient facility 2 to 3 times a week for therapy or home therapy. 2. Continue working on all exercises taught to you in the hospital. Your goals should be to increase bending of your knee to 90 degrees and beyond and to fully straighten your knee. B. You may progress at your own pace from walking with a walker or crutches to a cane; then to no assistive devices. C. Make walking a part of your daily routine. Be up as much as comfortable w ith rest periods throughout the day. Rest with leg elevation is very important. Use the ice wrap frequently for the first 3-4 weeks. D. There are no restrictions on activities. You may ride in a car, shop, participate in tax compliance agent and all social activities. E. Wear the long elastic stockings (LILIAN hose) 20 hours a day for 2 weeks after surgery. They can be removed several times a day for laundering and for a bath. F. You may shower, no tub baths until cleared by your doctor. SPECIAL CARE INSTRUCTIONS: VERY IMPORTANT TO READ AND REVIEW A. There are a few signs you need to watch for after you are home. Call [facility] [place] if you notice any of the followin. Increased severe knee pain. Some pain is expected especially when you exercise. 2. Increased swelling in your leg or knee; pain or swelling of the calf muscle in either lower leg. 3. Any fluid drainage from the incision. 4. Shortness of breath or chest pain. B. Please call [facility] at if you have any concerns or questions about your operation or recovery. The doctor or his nurse will return your call promptly. C. You must take antibiotics before dental work, bladder, bowel or other surgery. Your doctor will provide you with a permanent care to carry describing this precaution. IMPORTANT: * REMEMBER TO TAKE ASPIRIN, 81 MG, TWICE DAILY FOR 4 WEEKS UNLESS OTHERWISE DIR ECTED. THIS IS YOUR BLOOD THINNER. * HIGH RISK PATIENTS MAY BE PRESCRIBED A STRONGER BLOOD THINNER. THIS WILL BE PROVIDED AT DISCHARGE. * CALL IF INCREASED PAIN, REDNESS, DRAINAGE OR FEVER GREATER THAT 101. * WEAR LILIAN HOSE 20 HOURS PER DAY FOR 2 WEEKS. * MAXX Dressing- This is a large suction dressing covering your incision. This will help pull any excess drainage from the wound and allow your incision to heal properly. You may shower with this if you can keep the unit outside of the shower. If any bleeding or leakage is noted please call your doctor's office. This will remain on your incision for 7 days and then should be removed. This can be done yourself or by the home nursing staff if applicable. The entire unit is disposable once removed. Once removed, keep incision clean and dry. If redness or drainage is noted, please call your surgeon. DERMABOND Prineo- This is a mesh tape dressing that is covered with glue. It should remain in place until the incision is properly healed, usually 10-14 days. This dressing is designed to naturally slough off. You may trim the excess mesh tape as it peels off. Incision may be briefly wet in a shower. Dry immediately by blotting with a clean, dry towel. Do not bath or swim until instructed by your doctor. Do not scratch, rub, or pick at the dressing. Do not apply any topical ointments or lotions until dressing is completely removed and/or instructed by your doctor. There may be a small piece of suture material at one end of your incision. Do not pull or trim this. If it is bothersome or catching on clothing, you may cover it with a band-aid. FOLLOW UP VISIT: If appointment is not already scheduled: Please call [facility] [place] to make a follow-up appointment for 2 weeks after your surgery at . Prescriptions: New naproxen 250 mg Tablet 250 mg PO BID 30 Days Qty: 60 RF: 0 aspirin [Ecotrin Low Strength] 81 mg Tablet,Delayed Release (Dr/Ec) 81 mg PO BID 30 Days Qty: 60 RF: 0 oxycodone-acetaminophen [Percocet] 5-325 mg Tablet 1 - 2 tab PO Q6HWA PRN (Reason: pain) Qty: 30 RF: 0 docusate sodium 100 mg Capsule 100 mg PO BID 10 Days Qty: 20 RF: 0 cefadroxil 500 mg capsule 500 mg PO BID 10 Days Qty: 20 RF: 0 Continue carisoprodol 350 mg Tablet 350 mg PO DAILY PRN (Reason: Spasms) RF: 0 ferrous sulfate 325 mg (65 mg iron) Tablet 325 mg PO BID RF: 0 ergocalciferol (vitamin D2) [Vitamin D2] 50,000 unit Capsule 50,000 unit PO 2XWK RF: 0 metformin 500 mg Tablet Extended Release 24 Hr 1,000 mg PO BID RF: 0 omeprazole 20 mg Tablet,Delayed Release (Dr/Ec) 20 mg PO QAM RF: 0 vitamin M12-upnqv acid 500-400 mcg Tablet 1,000 mcg PO WK RF: 0 amlodipine 5 mg Tablet 5 mg PO QPM RF: 0 sildenafil 25 mg Tablet 25 - 100 mg PO DAILY PRN (Reason: Erectile Dysfunction) RF: 0 hydrocortisone 2.5 % Cream 1 applic TOPICAL BID PRN (Reason: Pain) RF: 0 lisinopril 40 mg Tablet 40 mg PO QAM RF: 0 doxazosin 2 mg Tablet 2 mg PO HS RF: 0 psyllium husk [Metamucil] 3.4 gram/5.4 gram Powder 1 tbsp PO DAILY PRN (Reason: Constipation) RF: 0 multivitamin Tablet 1 tab PO QAM RF: 0 biotin 5,000 mcg Tablet,Disintegrating 5,000 mcg PO QAM RF: 0 amoxicillin 500 mg Tablet 4 tab PO DIRECTED PRN (Reason: pre dental procedure) RF: 0 Stand-Alone Forms: [facility] Discharge Orders: Discharge Order (Routine); Ordered 09/12/18 Ordered By: Gregory Elizondo Admission Data Admit Date/Time: 09/10/18 10:18 Attending Provider: Jaxson Palacio Admit Provider: Jaxson Palacio Primary Care Provider: Rolando Posey Service: Surgical Services
[2018-09-12] MEDS: DOCUSATE SODIUM 100 MG CAP PO SCH (08:01)
[2018-09-12] MEDS: FERROUS SULFATE 325 MG TAB PO SCH (08:02)
[2018-09-12] MEDS: MULTIVITAMIN TAB PO SCH (08:02)
[2018-09-12] MEDS: ASPIRIN 81 MG ECTAB PO SCH (08:02)
[2018-09-12] MEDS: NAPROXEN 250 MG TAB PO SCH (08:03)
[2018-09-12] MEDS: INSULIN ASPART 100 UNITS/ML 3 ML PEN SC SCH (08:05)
[2018-09-12] MEDS ORDERED: ERGOCALCIFEROL 50,000 UNITS CAP PO SCH (09:00)
== END 2018-09-12 12:55 | disposition home health service (06) | DRG 470 ==
LOC: ASU 04:52 → 3N 10:18
DX: Z96.651 Presence of right artificial knee joint; Z86.718 Personal history of other venous thrombosis and embolism; Z79.899 Other long term (current) drug therapy; M24.562 Contracture, left knee; M23.8X2 Other internal derangements of left knee; I10 Essential (primary) hypertension; Z79.84 Long term (current) use of oral hypoglycemic drugs; M17.12 Unilateral primary osteoarthritis, left knee; K21.9 Gastro-esophageal reflux disease without esophagitis; Z98.84 Bariatric surgery status; E11.9 Type 2 diabetes mellitus without complications; M06.9 Rheumatoid arthritis, unspecified

== ENCOUNTER 2023-10-09 11:55 | Inpatient (IN) ==
[2023-10-09] MEDS ORDERED: ONDANSETRON INJ 2 MG/ML 2 ML VIAL IV PRN (11:58)
[2023-10-09] MEDS ORDERED: PHARMACY GLYCEMIC MGMT CONSULT PRN (12:01)
[2023-10-09] MEDS ORDERED: GLUCAGON FOR INJ 1 MG VIAL IM PRN (12:15)
[2023-10-09] MEDS ORDERED: CARBOHYDRATES FOR HYPOGLYCEMIA PO PRN (12:15)
[2023-10-09] MEDS ORDERED: GLUCOSE 10 TAB/TUBE PO PRN (12:15)
[2023-10-09] MEDS ORDERED: INSULIN ASPART PER UNIT CHARGE SC ONE (12:15)
[2023-10-09] MEDS ORDERED: GLUCOSE 40% GEL 15 GM TUBE PO PRN (12:15)
[2023-10-09] MEDS: SODIUM CHLORIDE 0.9% 1,000 ML IV SCH (12:49)
--- NOTE | 2023-10-09 13:00 | History & Physical Report ---
Date of Service October 09, 2023 Assessment & Plan (1) Acute cholecystitis: Plan: This is a 73yM with a PMH of DM2, HLD, HTN, BPH, who presents as a direct admission from our general surgical office on 10/09/23 with abdominal pain and concerns for acute cholecystitis. The patient reports he's been having pain in his R upper abdomen/epigastric region for last the 6 weeks that has worsening in severity of recently. As an outpatient he has undergone a RUQ US that shows cholelithiasis and has a a HIDA that shows an EF of 29%. He has in the meantime been worked up by his PCP for concern of chest pains. Yesterday he was ordered for a myocardial stress test that showed some concern for myocardial ischemia, with consideration to coronary angiography versus medical management as clinically indicated. Today patient was scheduled to see us in the office. Based on his exam and history was recommended he be directly admitted for possible cholecystectomy vs consideration of percutaneous cholecystostomy tube. We have consulted cardiology given his cardiac history to see if he requires any further interventions by them or medical optimization per the results of his stress test. If no further investigations are required cardiac roberson we would consider performing lap kwadwo this admission. So far patient's vitals are stable. WBC 7, hbg 13, and LFTs are within normal limits. On exam patient's abdomen is soft with discomfort to palpation in the epigastric and ruq regions. We will keep patient NPO and started on IV abx in the meantime. Admission and Anticipated Discharge Date Admission Date: October 09, 2023 History of Present Illness Primary Care Provider: Rolando Posey MD This is a 73yM with a PMH of DM2, HLD, HTN, BPH, who presents as a direct admission from our general surgical office on 10/09/23 with abdominal pain and concerns for acute cholecystitis. The patient reports he's been having pain in his R upper abdomen/epigastric region for last the 6 weeks. He states it's intermittent and sharp in nature. The pain has become worse over the last 2 weeks, sometimes rating the pain a 9-10/10 in severity. For further investigation of this he has undergone a RUQ US cholelithiasis without sonographic evidence of acute cholecystitis. Also a HIDA showed an EF of 29%. He has in the meantime been worked up by his PCP for concern of chest pains. And yesterday he was ordered for a myocardial stress test that showed some concern for myocardial ischemia, with consideration to coronary angiography versus medical management as clinically indicated. Today patient was scheduled to see us in the office and based on his exam and history was recommended he be directly admitted for possible cholecystectomy tomorrow pending cardiology clearance. In regards to his pain he does not notice any triggering or alleviating factors. He has no issues with fatty/greasy food or food in general. He denies any nausea/vomiting, fevers/chills, SOB, back pain, or change in bowel habits. He states he can walk without any worsening abdominal or chest pains. His past surgical history includes a gastric bypass and appendectomy. Of note he is scheduled to have surgery on his left shoulder with ortho on 10/13. Allergies Allergy/AdvReac Type Severity Reaction Status Date / Time atorvastatin AdvReac Intermediate Muscle Verified 10/10/23 11:55 aches simvastatin AdvReac Intermediate Muscle Verified 10/10/23 11:55 aches sulfamethoxazole AdvReac Intermediate Muscle pain Verified 10/10/23 11:55 trimethoprim AdvReac Intermediate Muscle pain Verified 10/10/23 11:55 Home Medications Medication Instructions Recorded Confirmed Type multivitamin 1 tab PO QAM 06/20/18 10/09/23 History biotin 5,000 mcg disintegrating 5,000 mcg PO QAM #90 tabs 12/31/18 10/09/23 Rx tablet cyanocobalamin (vitamin B-12) 1,000 mcg PO WK 12/23/19 10/09/23 History 1,000 mcg tablet ferrous sulfate 325 mg (65 mg 325 mg PO QAM 12/23/19 10/09/23 History iron) tablet doxazosin 2 mg tablet 2 mg PO HS #90 tabs 07/25/23 10/09/23 Rx ergocalciferol (vitamin D2) 1,250 50,000 unit PO 2XWK #24 caps 07/25/23 10/09/23 Rx mcg (50,000 unit) capsule (Vitamin D2) lisinopril 40 mg tablet 40 mg PO QAM #90 tabs 07/25/23 10/09/23 Rx glimepiride 2 mg tablet 2 mg PO QPM 09/01/23 10/09/23 History metformin 1,000 mg tablet 1,000 mg PO QAM 09/01/23 10/09/23 History metformin 500 mg tablet 500 mg PO QPM 09/01/23 10/09/23 History amlodipine 5 mg tablet 10 mg PO QAM 09/17/23 10/09/23 History omeprazole 20 mg capsule,delayed 40 mg PO QAM 09/17/23 10/09/23 History release rosuvastatin 5 mg tablet 5 mg PO QPM 09/17/23 10/09/23 History Past Med/Surg History Medical History Abnormal nuclear stress test Abnormal biliary HIDA scan Atypical chest pain Equivocal stress test DJD of left shoulder Obesity Hx of chest pain [facility] 09/01/23, EKG/troponins negative, outpatient stress test rec'd (scheduled 10/01/23 [facility]) Statin myopathy Inflammatory arthritis Osteoarthritis GERD (gastroesophageal reflux disease) Diabetes mellitus, type 2 Hx of deep venous thrombosis LLE (~2011), previously on AC Hypertension Hyperlipidemia Surgical History History of esophagogastroduodenoscopy (EGD) History of colonoscopy History of repair of anterior cruciate ligament of left knee History of bilateral knee replacement Hx of repair of rotator cuff R/L History of bilateral carpal tunnel release H/O bilateral cataract extraction History of appendectomy History of tonsillectomy History of back surgery x 3 with titanium rods History of gastric bypass (2013) Family History Son Family hx of colon cancer Daughter Multiple sclerosis Social History Smoking Status: Never smoker Second Hand Exposure: No; Do You Dip or Chew Tobacco: No; Tobacco Cessation Education Requested by Patient: No Hx Alcohol Use: No Hx Substance Use: No Preferred Language: [place] Communication Ability: Effective Visual Impairment: No Limitations Hearing Ability: Normal Fusing Furnace Loader Required: No Beliefs That Will Affect Care: None marital status: Current Living Situation: Spouse current occupational status: retired How many Children do You have Comment: Has children Other Information That Helps Us Care for You: No Feels Safe at Home: Yes Safety Concerns: Feels Safe At This Time Diet: diabetic during the past year weight has: remained stable Seatbelt Use: always Assistive Devices: None Review of Systems Constitutional: no fever and no chills Respiratory: no dyspnea Cardiovascular: + chest pain Gastrointestinal: + abdominal pain; no bloating, no nausea , no vomiting and no change in bowel habits Physical Exam Physical Exam: awake/alert, no distress Constitutional: well developed and well nourished Respiratory: normal respiratory effort Gastrointestinal (Abdomen): Inspection/Auscultation: + abdominal surgical scar; abdomen not distended Percussion/Palpation: + abdomen tender (discomfort to palpation in epigastric and RUQ) and abdomen soft Results & Data Results & Data Diagnostic Findings NM hepatobiliary EF CLINICAL HISTORY: 73 years-old Male with R10.10 - Upper abdominal pain, unspecified. TECHNIQUE: Following the intravenous administration of 4.9 mCi of technetium- 99m Choletec, sequential abdominal images were obtained. In order to evaluate the contractile response of the gallbladder, 2.3 mcg of Kinevac was administered by slow intravenous infusion over 30 min starting approximately 60 min after the administration of the radiopharmaceutical. Sequential imaging was continued for 45 min after the start of the Kinevac infusion. COMPARISON: Abdominal ultrasound 09/11/2023 FINDINGS: There is prompt, uniform accumulation of the tracer by the liver. There is normal filling of the intrahepatic ducts, common bile duct and gallbladder and normal excretion of the tracer into the duodenum. There is suboptimal contraction of the gallbladder. The calculated gallbladder ejection fraction is 29% (normal >40%). There is no significant enterogastric reflux. IMPRESSION: 1. Abnormal contractile response of the gallbladder to Kinevac infusion with ejection fraction of 29%. 2. Otherwise unremarkable biliary imaging study. ACT 112: Negative or not required by law. The above report was generated using voice recognition software. It may contain grammatical, syntax or spelling errors. Electronically signed by: Monster Dunaway M.D. 10/04/2023 3:15 PM ABDOMINAL ULTRASOUND, RIGHT UPPER QUADRANT HISTORY: R10.10 - Upper abdominal pain, unspecified. COMPARISON: CT 09/21/2008 FINDINGS: Pancreas: The pancreas is mostly obscured by bowel gas. Liver: Unremarkable. Gallbladder: No gallbladder wall thickening however there is mild gallbladder distention. Cholelithiasis redemonstrated. No pericholecystic fluid. Negative sonographic Taylor's sign. CBD: 0.4 cm. Right kidney: 1.8 cm cyst of the interpolar kidney. No hydronephrosis. Note is made of a tubular fluid-filled structure in the midline abdomen, possibly a loop of bowel or portion of the distal stomach. The patient does have a history of prior gastric bypass. IMPRESSION: 1. Cholelithiasis without sonographic evidence of acute cholecystitis. 2. No biliary ductal dilation. ACT 112: Negative or not required by law. Supervising Physician Co-Signing Physician Notes Patient was seen in the office surgery today as a new patient with excruciating pain right upper quadrant nauseated documented cholelithiasis clinically suspicious for acute cholecystitis however recommended to be admitted for cardiac evaluation possible surgery PG Care Time/CCT Total # of Minutes Spent Total Time Spent with Patient: Total time spent is greater than 50% in coordination of care (as documented) at patient's floor/unit and/or counseling patient: Coding Level of Care Code None Diagnoses Acute cholecystitis K81.0
[2023-10-09 13:07] LABS: Basophils # (auto) 0.07 K/uL (0.00-0.20); Eosinophils # (auto) 0.16 K/uL (0.00-0.50); Eosinophils % (auto) 2.3 %; Hemoglobin 13.7 g/dl (14.0-18.0); Immature Granulocytes # (auto) 0.02 K/uL (0.01-0.20); Immature Granulocytes % (auto) 0.3 %; Lymphocytes % (auto) 32.8 %; Mean Corpuscular Hemoglobin 31.1 pg (25.0-34.0); Mean Corpuscular Hgb Conc 34.3 g/dL (32.0-36.0); Mean Corpuscular Volume 90.9 fL (80.0-100.0); Mean Platelet Volume 9.4 fL (9.4-12.4); Monocytes # (auto) 0.82 K/uL (0.11-0.59); Monocytes % (auto) 11.7 %; Neutrophils # (auto) 3.64 K/uL (1.40-6.50); Neutrophils % (auto) 51.9 %; Platelet Count 377 K/uL (130-400); RDW Coefficient of Variation 13.7 % (11.5-14.5); RDW Standard Deviation 45.8 fL (36.4-46.3); White Blood Count 7.01 K/ul (4.8-10.8)
[2023-10-09] MEDS: D5W AND NSS 1,000 ML IV SCH (13:13)
[2023-10-09] MEDS: PIPER/TAZO 4.5g in D5W MINI-B 100 ML IV ONE (13:13)
[2023-10-09] MEDS: Patient's HEIGHT &/or WEIGHT Needed SCH (13:20)
[2023-10-09] MEDS: INSULIN ASPART PER UNIT CHARGE SC SCH (13:20)
[2023-10-09 13:23] LABS: Albumin Level 4.3 gm/dl (3.4-5.0); BUN Creatinine Ratio 16.9 (10-20); Bilirubin Direct 0.1 mg/dl (0-0.2); Bilirubin,Total 0.3 mg/dl (0.2-1.0); Calcium 9.3 mg/dl (8.6-10.3); Creatinine Clr Calc Pharmacy 87.3 ml/min; Est GFR (African American) 96.9 ml/min; Est GFR (Non-African American) 83.6 ml/min; Potassium 4.3 mmol/L (3.5-5.1); Total Protein 7.5 gm/dl (6.0-8.3)
[2023-10-09 13:37] LABS: Partial Thromboplastin Ratio 1.1; Partial Thromboplastin Time 30 Seconds (21-31)
[2023-10-09] MEDS: DEXTROSE 50% 50 ML SYRINGE IV PRN (13:44)
--- NOTE | 2023-10-09 14:29 | Pharmacy Report ---
Pharmacy Glycemic Short Note 2 - Date of Service October 09, 2023 - Glycemic Short BSG Results (Last 24 hours): 10/09/23 10/09/23 10/09/23 12:37 12:42 14:01 Glucose 68 L POC Glucose 70 141 H OUTPATIENT ANTIDIABETIC REGIMEN: * Glimepiride 2 mg PO PM * Metformin 1000 mg PO AM + 500 mg PO PM * HbA1c: 7.5% (09/26/23) ASSESSMENT: * 73 yo M admitted on 10/09/23 secondary to acute cholecystitis. Pharmacy has been consulted to assist with inpatient glycemic management. Patient is a Type 2 diabetic as an outpatient. Please refer to outpatient regimen and most recent HbA1c above. * NPO for today given possible surgery tomorrow. * Patient felt funny upon arrival to floor. Serum BSG was 68 mg/dL, accucheck was 70 mg/dL. He received about 5 minutes of a D5NS infusion at 125 mL/hr. Recheck was 141 mg/dL. Hold off on any basal insulin until patient eating. * Novolog started based on weight/stress of 2. PLAN FOR INPATIENT GLYCEMIC CONTROL: * Hold outpatient oral diabetes medications * Basal insulin * Hold * Bolus insulin * NovoLog per scale ACHS or Q6hrs while NPO * Goal Range: Low 110 mg/dL - High 140 mg/dL * Correction Factor: 20 mg/dL/unit * Nutritional / Prandial insulin per carb ratio of 1 unit per 7 grams CHO consumed
--- NOTE | 2023-10-09 15:20 | Cardiology Consultation ---
Date of Consultation October 09, 2023 Assessment & Plan (1) Abnormal nuclear stress test: (2) Atypical chest pain: (3) Aortic stenosis: (4) First degree AV block: Plan 1. Abnormal stress test: Very small area of possible ischemia. Possibly soft tissue attenuation. Preserved LV systolic function on gated images. Overall low risk study. 2. Aortic stenosis: Mild on most recent echocardiogram. He should not produce symptoms or any hemodynamic compromise. It can be followed over time. 3. First-degree AV block: No symptoms. No evidence of higher degree AV block during his recent exercise stress testing. Caution should be used if AV catherine blockers or rate control agents are required. 4. Atypical chest pain: He never reported symptoms of chest pain. All of his symptoms appear to have involve the upper abdomen and lower ribcage. He had an extended episode of symptoms leading up to his emergency room evaluation in August without elevated biomarkers. I do not think he has a history consistent with angina. 5. Preoperative evaluation: I think he can proceed with the planned surgery without additional testing. His perfusion study is low risk (less than 10% mild cardiomegaly rest) if abnormal at all. His symptoms are not consistent with angina or coronary insufficiency. He has preserved LV systolic function and the procedure itself is considered low risk (laparoscopic cholecystectomy). No other high-risk features (insulin use, renal dysfunction, unstable conduction disease or severe valvular disease) Standard precautions would apply. This would include appointments of significant blood loss, anemia, hypoxia, hypotension for significant h ypertension or tachycardia. No role for preoperative beta-blockade. This may actually contraindicated given his baseline conduction disease. History of Present Illness Reason for Consultation: Preoperative evaluation Requesting Physician: Stefani Attending Physician: Scott Khalil MD, [facility] History of Present Illness The patient is a 73-year-old gentleman without a known history of cardiac disease who initially presented to the emergency room on September 01, 2023 with symptoms of chest pain. The patient describes this discomfort as along the lower rib cage. He was fairly constant in nature and the present for several hours. His median evaluation involve cardiac biomarkers which were normal. He was sent to his primary care physician's office for follow-up and stress testing was ordered. Exercise echocardiogram was nondiagnostic as the patient was unable to achieve his target heart rate and was only able to exercise for 3 minutes. The patient was subsequently referred for perfusion imaging which was performed yesterday. He was seen for surgical evaluation today. Based on his imaging and symptoms he was felt to need a cholecystectomy and sent to the hospital for admission. This consult was requested in order to provide some perioperative cardiovascular evaluation. The patient states that he has been relatively sedentary for a few months. This is primarily due to shoulder discomfort. He was scheduled to undergo a left shoulder surgery in 1 week. However, this has now been postponed. He was not able to Vicente due to left shoulder discomfort this fall. Normally speaking he does wood chopping and exercise outdoors but this is also been curtailed by left shoulder pain. He is able to perform work around the house and ascend stairs. He did not report any other limitations associated with activity. Specifically denies limiting dyspnea or any symptoms of precordial pain. He continues have episodes of primarily right upper quadrant discomfort and pain along the lower rib cage. This is fairly random in nature. It is not associated with any particular activity or change of position. Sometimes palpating the right upper quadrant produces discomfort. Allergies Allergy/AdvReac Type Severity Reaction Status Date / Time atorvastatin AdvReac Intermediate Muscle Verified 10/09/23 11:01 aches simvastatin AdvReac Intermediate Muscle Verified 10/09/23 11:01 aches sulfamethoxazole AdvReac Intermediate Muscle pain Verified 10/09/23 11:01 trimethoprim AdvReac Intermediate Muscle pain Verified 10/09/23 11:01 Bactrim AdvReac Unknown MUSCLE PAIN Unverified 10/16/17 07:18 Home Medications Medication Instructions Recorded Confirmed Type multivitamin 1 tab PO QAM 06/20/18 10/09/23 History biotin 5,000 mcg disintegrating 5,000 mcg PO QAM #90 tabs 12/31/18 10/09/23 Rx tablet cyanocobalamin (vitamin B-12) 1,000 mcg PO WK 12/23/19 10/09/23 History 1,000 mcg tablet ferrous sulfate 325 mg (65 mg 325 mg PO QAM 12/23/19 10/09/23 History iron) tablet doxazosin 2 mg tablet 2 mg PO HS #90 tabs 07/25/23 10/09/23 Rx ergocalciferol (vitamin D2) 1,250 50,000 unit PO 2XWK #24 caps 07/25/23 10/09/23 Rx mcg (50,000 unit) capsule (Vitamin D2) lisinopril 40 mg tablet 40 mg PO QAM #90 tabs 07/25/23 10/09/23 Rx glimepiride 2 mg tablet 2 mg PO QPM 09/01/23 10/09/23 History metformin 1,000 mg tablet 1,000 mg PO QAM 09/01/23 10/09/23 History metformin 500 mg tablet 500 mg PO QPM 09/01/23 10/09/23 History amlodipine 5 mg tablet 10 mg PO QAM 09/17/23 10/09/23 History omeprazole 20 mg capsule,delayed 40 mg PO QAM 09/17/23 10/09/23 History release rosuvastatin 5 mg tablet 5 mg PO QPM 09/17/23 10/09/23 History Patient History Medical History Abnormal nuclear stress test Abnormal biliary HIDA scan Atypical chest pain Equivocal stress test DJD of left shoulder Obesity Hx of chest pain [facility] ED 09/01/23, EKG/troponins negative, outpatient stress test rec'd (scheduled 10/01/23 [facility]) Statin myopathy Inflammatory arthritis Osteoarthritis GERD (gastroesophageal reflux disease) Diabetes mellitus, type 2 Hx of deep venous thrombosis LLE (~2011), previously on AC Hypertension Hyperlipidemia Surgical History History of esophagogastroduodenoscopy (EGD) History of colonoscopy History of repair of anterior cruciate ligament of left knee History of bilateral knee replacement Hx of repair of rotator cuff R/L History of bilateral carpal tunnel release H/O bilateral cataract extraction History of appendectomy History of tonsillectomy History of back surgery x 3 with titanium rods History of gastric bypass (2013) Family History Son Family hx of colon cancer Daughter Multiple sclerosis Social History Smoking Status: Never smoker Second Hand Exposure: No; Do You Dip or Chew Tobacco: No; Hx Alcohol Use: No Hx Substance Use: No Preferred Language: Citizen Of [place] Communication Ability: Effective Visual Impairment: No Limitations Hearing Ability: Normal Board Winder Required: No Beliefs That Will Affect Care: None marital status: Current Living Situation: Spouse current occupational status: retired How many Children do You have Comment: Has children Feels Safe at Home: Yes Safety Concerns: Feels Safe At This Time Diet: diabetic during the past year weight has: remained stable Seatbelt Use: always Assistive Devices: Glasses Review of Systems Review of Systems: Per HPI Physical Exam Physical Exam: The patient is alert and oriented. Mood and affect appeared normal. He answered all questions appropriately. HEENT: Pupils are equal and reactive to light and accommodation. Extraocular movements are intact. The sclerae are anicteric. Neuro: Cranial nerves intact Neck: Patient's neck is supple. He has palpable carotid pulses bilaterally without bruits on auscultation. There is no evidence of jugular venous distention. The thyroid is not enlarged. Lungs: Clear to auscultation bilaterally. He has good air movement without use of accessory muscles. No rales wheezes or rhonchi. Cardiac: Heart demonstrates a regular rate and rhythm. Normal S1 and S2. Crescendo systolic murmur. Pulses: The patient has palpable radial pulses bilaterally that are equal in intensity Extremities: There was no evidence of hypoperfusion. There is no cyanosis or clubbing. Mild lower extremity edema Skin: I did not appreciate any rashes on examination today. Results & Data Vital Signs (Past 12 Hours) Vital Signs Temp Pulse Resp BP Pulse Ox Pulse Ox O2 Del Method 10/09/23 14:24 55 L 10/09/23 14:21 36.6 C 48 L 17 147/78 H 95 Room Air 10/09/23 12:58 36.6 C 53 L 18 144/79 H 96 Room Air 10/09/23 12:33 96 O2 Del Method 10/09/23 14:24 10/09/23 14:21 10/09/23 12:58 10/09/23 12:33 Room Air Laboratory Results Abnormal Lab Results 10/09/23 10/09/23 10/09/23 12:37 12:42 14:01 WBC 7.01 RBC 4.40 L Hgb 13.7 L Hct 40.0 L MCV 90.9 MCH 31.1 MCHC 34.3 RDW Std Deviation 45.8 RDW Coeff of Francheska 13.7 Plt Count 377 MPV 9.4 Immature Gran % (Auto) 0.3 Neut % (Auto) 51.9 Lymph % (Auto) 32.8 O'Brien % (Auto) 11.7 Eos % (Auto) 2.3 Baso % (Auto) 1.0 Neut # (Auto) 3.64 Lymph # (Auto) 2.30 O'Brien # (Auto) 0.82 H Eos # (Auto) 0.16 Baso # (Auto) 0.07 Immature Gran # (Auto) 0.02 APTT 30 PTT Ratio 1.1 Sodium 136 Potassium 4.3 Chloride 102 Carbon Dioxide 27 Anion Gap 7 BUN 15 Creatinine 0.89 Est Cr Clr Drug Dosing 87.3 Est GFR ( Amer) 96.9 Est GFR (Non-Af Amer) 83.6 BUN/Creatinine Ratio 16.9 Glucose 68 L POC Glucose 70 141 H Calcium 9.3 Total Bilirubin 0.3 Direct Bilirubin 0.1 AST 19 ALT 20 Alkaline Phosphatase 70 Total Protein 7.5 Albumin 4.3 Diagnostic Findings Exercise echocardiogram 10/01/2023: Patient exercised for 3 minutes. There was no evidence of inducible ischemia on echocardiogram or EKG. Baseline echocardio gram demonstrated preserved LV systolic function with an ejection fraction of 55-60%. No wall motion abnormalities. Mild aortic stenosis. 10/08/2023: Abnormal. Gated ejection fraction 61%. Small mild intensity reversible inferior inferolateral and apical defect. 6% myocardial ischemia. 09/25/2023: No acute pulmonary disease. ECG Additional Comments: EKG obtained 09/01/2023: Normal sinus rhythm with 1st degree AV block. OR interval 218 milliseconds. Otherwise unremarkable PG Care Time/CCT Total # of Minutes Spent Total Time Spent with Patient: Total time spent is greater than 50% in coordination of care (as documented) at patient's floor/unit and/or counseling patient: Coding Level of Care Code 53075 INT INP/OBS CARE 3/75MIN Diagnoses Abnormal nuclear stress test R94.39 Atypical chest pain R07.89 Aortic stenosis I35.0 First degree AV block I44.0
[2023-10-09] MEDS: ACETAMINOPHEN 1,000 MG/100 ML VIAL IV PRN (17:04)
[2023-10-09] MEDS: PIPERACILLIN/TAZOBACTAM 4.5 GM in DEXTROSE 5% MINI-B 100 ML IV SCH (17:54)
[2023-10-10 06:32] LABS: Basophils # (auto) 0.04 K/uL (0.00-0.20); Basophils % (auto) 0.8 %; Eosinophils # (auto) 0.14 K/uL (0.00-0.50); Eosinophils % (auto) 2.7 %; Hematocrit (blood only) 34.7 % (42.0-52.0); Hemoglobin 11.7 g/dl (14.0-18.0); Immature Granulocytes # (auto) 0.01 K/uL (0.01-0.20); Immature Granulocytes % (auto) 0.2 %; Lymphocytes # (auto) 1.25 K/uL (1.20-3.40); Lymphocytes % (auto) 24.3 %; Mean Corpuscular Hemoglobin 30.8 pg (25.0-34.0); Mean Corpuscular Hgb Conc 33.7 g/dL (32.0-36.0); Mean Corpuscular Volume 91.3 fL (80.0-100.0); Mean Platelet Volume 9.3 fL (9.4-12.4); Monocytes # (auto) 0.61 K/uL (0.11-0.59); Monocytes % (auto) 11.9 %; Neutrophils # (auto) 3.09 K/uL (1.40-6.50); Neutrophils % (auto) 60.1 %; Platelet Count 341 K/uL (130-400); RDW Coefficient of Variation 13.6 % (11.5-14.5); RDW Standard Deviation 45.8 fL (36.4-46.3); White Blood Count 5.14 K/ul (4.8-10.8)
[2023-10-10 06:53] LABS: Albumin Globulin Ratio 1.3 (0.9-2); Albumin Level 3.5 gm/dl (3.4-5.0); BUN Creatinine Ratio 13.4 (10-20); Bilirubin,Total 0.6 mg/dl (0.2-1.0); Calcium 8.6 mg/dl (8.6-10.3); Creatinine Clr Calc Pharmacy 94.7 ml/min; Est GFR (African American) 100.3 ml/min; Est GFR (Non-African American) 86.5 ml/min; Globulin 2.7 gm/dl (2.5-4.0); Potassium 3.8 mmol/L (3.5-5.1); Total Protein 6.2 gm/dl (6.0-8.3)
[2023-10-10] MEDS: PANTOprazole 40 MG TAB PO SCH (08:25)
[2023-10-10] MEDS: amLODIPine BESYLATE 5 MG TAB PO SCH (08:25)
[2023-10-10] MEDS ORDERED: ROCURONIUM BROMIDE 10 MG/ML 5 ML VIAL IV ONE ×2 (11:53→13:12)
[2023-10-10] MEDS ORDERED: fentaNYL citrate PF 100 MCG/2 ML VIAL ONE (11:53)
[2023-10-10] MEDS ORDERED: ONDANSETRON INJ 2 MG/ML 2 ML VIAL ONE (11:53)
[2023-10-10] MEDS ORDERED: PROPOFOL IV EMULSION 10 MG/ML 20 ML VIAL IV ONE (11:53)
[2023-10-10] MEDS ORDERED: LIDOCAINE 2% 2 ML VIAL/AMP(20MG/ML) INFIL ONE (11:53)
[2023-10-10] MEDS: LACTATED RINGER'S 1,000 ML IV SCH ×2 (11:56→15:12)
[2023-10-10] MEDS ORDERED: ePHEDrine sulfate 50 MG/ML AMP IV PRN (12:07)
[2023-10-10] MEDS ORDERED: HYDROmorphone INJ 1 MG/ML SYRINGE IV PRN (12:07)
[2023-10-10] MEDS ORDERED: ONDANSETRON INJ 2 MG/ML 2 ML VIAL IV PRN (12:07)
[2023-10-10] MEDS ORDERED: ATROPINE SULFATE 0.1 MG/ML 10ML SYR IV PRN (12:07)
--- NOTE | 2023-10-10 12:21 | History & Physical Bridge Note ---
Date of Service October 10, 2023 History & Physical Bridge Note I have examined the patient, reviewed the History & Physical and in the interval since the performance of the History & Physical I have noted the following changes of clinical significance: no changes noted Patient since last seen yesterday and started antibiotic he feels that his pain right side is better On exam he is breaker tender lateral right upper quadrant underneath the rib cage suspicious for and continues to be acute cholecystitis Will proceed with laparoscopic cholecystectomy possible open possible cholangiogram and risk and benefit of been explained to the patient yesterday to him and his permit was signed we will proceed with surgery today is to be here later presently she is attending to her daughter Permit signed all question answered
[2023-10-10] MEDS ORDERED: ePHEDrine sulfate 50 MG/5 ML SYR ONE (13:07)
[2023-10-10] MEDS ORDERED: SUGAMMADEX SODIUM 200 MG/2 ML VIAL IV ONE (13:42)
[2023-10-10] MEDS ORDERED: KETOROLAC 30 MG/ML VIAL ONE (13:47)
--- NOTE | 2023-10-10 13:58 | Post Operative Brief Note ---
Immediate Post Op Note v1 Date of Surgery October 10, 2023 Pre & Post Diagnosis Operation Date: 10/10/23 12:00 Pre-Op Diagnosis: Acute cholecystitis I identified the patient and participated in the time-out.: Yes Procedure Operation Date: 10/10/23 12:00 Actual Procedures p Laparoscopic Cholecystectomy (Not Applicable) - Scott Khalil MD, FACS Surgeon Scott Khalil MD, FACS Transport Conductor Kelly SMITH Estimated Blood Loss 5 Findings Consistent with Post-Op Diagnosis
--- NOTE | 2023-10-10 14:19 | Operative Report ---
PG Post Operative Report Pre & Post Diagnosis Operation Date: 10/10/23 12:00 Pre-Op Diagnosis: Acute cholecystitis Post-Op Diagnosis: Acute cholecystitis I identified the patient and participated in the time-out.: Yes Procedure Operation Date: 10/10/23 12:00 Actual Procedures p Laparoscopic Cholecystectomy (Not Applicable) - Scott Khalil MD, FACS Attempted cholangiogram The patient was brought into the operating theater supine position general endotracheal anesthesia the abdomen was prepped Betadine scrub solution and properly draped antibiotics had been on board patient identified timeout was had made a small incision supraumbilically sufficient to accommodate a Veress needle followed by CO2 followed by 5 mm trocar To the intra-abdominal pressure approximately 15 point of entry specter no injury identified tender right upper quadrant we can see a distended gallbladder appeared very thin-walled tense as we went around the abdomen with scope we really did not see anything grossly the omentum was cleared all the way around there was no evidence of any other gross pathology on direct visual visualization placed a 5 mm epigastric trocar and two 5 mm subcostal trocar on the right with preemptive local analgesic at this point the patient was sternal slight left lateral reverse Trendelenburg his gallbladder was quite tense we then we evacuated to make it more pliable needle was brought in immediately aspirated but it was clear green-brown none hydrops gallbladder was then elevated and significant amount of adhesions edematous adhesions were taken down usually blunt and sharp dissection and usually blunt dissection we were able to separate the cystic duct easily from the artery cystic duct was small 5 mm clip was placed at its takeoff small opening cystic duct was made #4 urethral catheter transversing abdominal wall was brought into the field we attempted to place in a small opening that we have made in the cystic duct but this opening was very small and would not accommodate it and we aborted to do a cholangiogram patient had no liver function elevations but I thought it may be functional if we can get it since the patient had a Tiffany-en-Y gastric bypass before once catheter has been removed distally the cystic duct was doubly clipped divided mostly blunt dissection we were able to free the adhesions and fatty attachments of the gallbladder cystic artery some few areas with freed easily from the gallbladder wall and clipped proximally twice once distally and divided the gallbladder was removed in antegrade fashion from the liver prior to completely elevated off the liver we then suctioned out the fossa of the gallbladder a few areas of bleeders were controlled just by irrigation gallbladder was then placed in an Endopouch and taken out intact through the epigastric port palpable stones were appreciated the wall was edematous we did take cultures of the fluid at this point the subhepatic suprahepatic area was irrigated and appears satisfactory I elected to drain the subhepatic area due to the severity of the inflammation and we replaced a 19 round Vinicius that came in through the epigastric port and went onto the right upper quadrant lateral trocar site attaching skin edges with 3-0 nylon prior to leaving the abdomen and removing the trocars we inspected there was no bleeding appreciated and trocar sites the wounds were closed with 4-0 Monocryl Steri-Strips applied procedure was tolerated well by the patient estimated blood loss 5 cc Addendum Cata Gilbert physician hotel administrative assistant was present throughout the case and helped the retraction exposure wound closure Called nickie Clarke cell phone [phone] no answer left a generic message that everything is gone well that we keep the patient till tomorrow Surgeon Scott Khalil MD, FACS Tip Printer Kelly SMITH Estimated Blood Loss 5 Findings Consistent with Post-Op Diagnosis Acute on chronic cholecystitis Specimens Gallbladder and common Drains 19 Vinicius subhepatic out to right upper quadrant trocar site Indications Excruciating pain and tenderness right upper quadrant Description of Procedure merda I attest to the content of the Intraoperative Record and any orders documented therein. Any exceptions are noted below.
[2023-10-10] MEDS: fentaNYL citrate PF 100 MCG/2 ML VIAL IV PRN (14:21)
[2023-10-10] MEDS: LIDOCAINE 1%/EPINEPHRINE 1:100,000 20 ML VIAL ONE (14:52)
[2023-10-10] MEDS ORDERED: MoRPHine SULFATE 2 MG/ML CARP IV PRN (14:54)
[2023-10-10] MEDS ORDERED: Nursing to Pharmacy Communication SCH (15:00)
[2023-10-10] MEDS: oxyCODONE HCL IR 5 MG TAB (IMMEDIATE RELEASE) PO PRN ×2 (15:12→19:40)
--- NOTE | 2023-10-10 16:48 | Anesthesiology Progress Note ---
Date of Service October 10, 2023 Anesthesia Post Procedure Vital Signs Vital Signs: Temp Pulse Pulse Pulse Resp BP BP 10/10/23 16:03 36.6 C 62 14 151/74 H 10/10/23 15:49 36.3 C L 72 20 176/85 H 10/10/23 15:02 36.4 C L 16 168/78 H 10/10/23 14:50 36.1 C L 61 14 152/71 H 10/10/23 14:40 55 L 15 153/73 H 10/10/23 14:30 61 12 163/76 H 10/10/23 14:20 57 L 14 174/81 H 10/10/23 14:11 36.2 C L 63 20 172/79 H 10/10/23 11:40 36.6 C 54 L 20 149/90 H 10/10/23 09:10 10/10/23 07:05 36.3 C L 48 L 18 145/81 H 10/09/23 21:09 36.5 C 48 L 16 144/77 H Pulse Ox O2 Del Method O2 Flow Rate 10/10/23 16:03 95 Nasal Cannula 2 10/10/23 15:49 97 Nasal Cannula 2 10/10/23 15:02 97 Room Air, Nasal Cannula 2 10/10/23 14:50 98 Nasal Cannula 2 10/10/23 14:40 98 Nasal Cannula 2 10/10/23 14:30 95 Oxymask 4 10/10/23 14:20 99 Oxymask 4 10/10/23 14:11 99 Oxymask 6 10/10/23 11:40 94 Room Air 10/10/23 09:10 Room Air 10/10/23 07:05 95 Room Air 10/09/23 21:09 96 Room Air Pain Intensity Abdomen: Pain Intensity: 4 Transfer of Care Handoff Completed per policy Notes Mental Status: alert / awake / arousable and participated in evaluation Patient Amnestic to Procedure: Yes Nausea / Vomiting: adequately controlled Pain: adequately controlled Airway Patency, RR, SpO2: stable & adequate BP & HR: stable & adequate Hydration State: stable & adequate Anesthetic Complications: no major complications apparent and Pt Satisfied with anesthetic care
[2023-10-10] MEDS: INSULIN ASPART PER UNIT CHARGE SC SCH (17:26)
[2023-10-10] MEDS: DOXAZosin MESYLATE TAB 2 MG TAB PO SCH (21:19)
[2023-10-11] MEDS: MoRPHine SULFATE 4 MG/ML 1 ML CARP\\VIAL IV PRN (04:06)
[2023-10-11 07:04] LABS: Basophils # (auto) 0.03 K/uL (0.00-0.20); Basophils % (auto) 0.4 %; Eosinophils # (auto) 0.06 K/uL (0.00-0.50); Eosinophils % (auto) 0.8 %; Hematocrit (blood only) 34.6 % (42.0-52.0); Hemoglobin 11.4 g/dl (14.0-18.0); Immature Granulocytes # (auto) 0.04 K/uL (0.01-0.20); Immature Granulocytes % (auto) 0.5 %; Lymphocytes # (auto) 1.83 K/uL (1.20-3.40); Lymphocytes % (auto) 23.1 %; Mean Corpuscular Hemoglobin 30.6 pg (25.0-34.0); Mean Corpuscular Hgb Conc 32.9 g/dL (32.0-36.0); Mean Platelet Volume 9.4 fL (9.4-12.4); Monocytes # (auto) 0.96 K/uL (0.11-0.59); Monocytes % (auto) 12.1 %; Neutrophils # (auto) 4.99 K/uL (1.40-6.50); Neutrophils % (auto) 63.1 %; Platelet Count 306 K/uL (130-400); RDW Coefficient of Variation 13.8 % (11.5-14.5); RDW Standard Deviation 47.6 fL (36.4-46.3); Red Blood Count 3.72 M/uL (4.70-6.10); White Blood Count 7.91 K/ul (4.8-10.8)
[2023-10-11 07:32] LABS: Albumin Globulin Ratio 1.3 (0.9-2); Albumin Level 3.4 gm/dl (3.4-5.0); BUN Creatinine Ratio 10.5 (10-20); Bilirubin,Total 0.7 mg/dl (0.2-1.0); Calcium 8.4 mg/dl (8.6-10.3); Creatinine Clr Calc Pharmacy 90.3 ml/min; Est GFR (African American) 98.3 ml/min; Est GFR (Non-African American) 84.8 ml/min; Globulin 2.6 gm/dl (2.5-4.0); Potassium 3.6 mmol/L (3.5-5.1)
[2023-10-11] MEDS: lisinopril 40 MG TAB PO SCH (07:44)
--- NOTE | 2023-10-11 08:17 | Surgery Progress Note ---
Date of Service October 11, 2023 Assessment & Plan (1) Acute cholecystitis: Plan: pt doing well pain controlled Remove SUKH drain prior to d/c Advanced diet VSS WBC wnl , LFT wnl stable for d/c sent pain medication and 7 days of antibx. follow up o/p 1 week Admission and Anticipated Discharge Date Admission Date: October 09, 2023 Subjective Patient is doing well tolerating diet pain controlled Review of Systems Constitutional: no fever and no chills Respiratory: no dyspnea Cardiovascular: no chest pain Gastrointestinal: no nausea and no vomiting Musculoskeletal: no muscle weakness Physical Exam Physical Exam: alert oriented Constitutional: cooperative and comfortable; no acute distress Respiratory: normal respiratory effort and able to speak in complete sente nces; no respiratory distress Cardiovascular: Rate/Rhythm: + bradycardic (57) Gastrointestinal (Abdomen): Inspection/Auscultation: + abdominal surgical incision (CDI) Results & Data Vital Signs (Past 12 Hours) Vital Signs Temp Pulse Resp BP BP Pulse Ox O2 Del Method 10/11/23 07:14 97.5 F L 57 L 18 143/72 H 94 Room Air 10/11/23 04:17 98.4 F 60 16 143/79 H 92 Room Air 10/10/23 23:02 98.2 F 63 16 153/78 H 93 Room Air 10/10/23 21:19 98.1 F 66 16 155/79 H 93 Room Air Results CMP Results: Na 132 mmol/L (136-145) L 10/11/23 K 3.6 mmol/L (3.5-5.1) 10/11/23 Cl 99 mmol/L (98-107) 10/11/23 CO2 29 mmol/L (21-32) 10/11/23 Anion Gap 4 (3-11) 10/11/23 BUN 9 mg/dl (6-23) 10/11/23 Creatinine 0.86 mg/dl (0.6-1.4) 10/11/23 Estimated GFR ( Amer) 98.3 ml/min 10/11/23 Estimated GFR (Non-Af Amer) 84.8 ml/min 10/11/23 BUN/Creatinine Ratio 10.5 (10-20) 10/11/23 Glu 135 mg/dl (70-99(Fasting)) H 10/11/23 Ca 8.4 mg/dl (8.6-10.3) L 10/11/23 Total Bilirubin 0.7 mg/dl (0.2-1.0) 10/11/23 Direct Bilirubin 0.1 mg/dl (0-0.2) 10/09/23 AST 31 U/L (13-39) 10/11/23 ALT 21 U/L (7-52) 10/11/23 Alkaline Phosphatase 51 U/L (34-104) 10/11/23 TP 6.0 gm/dl (6.0-8.3) 10/11/23 Albumin 3.4 gm/dl (3.4-5.0) 10/11/23 Globulin 2.6 gm/dl (2.5-4.0) 10/11/23 Albumin/Globulin Ratio 1.3 (0.9-2) 10/11/23 PG Care Time/CCT Total # of Minutes Spent Total Time Spent with Patient: Total time spent is greater than 50% in coordination of care (as documented) at patient's floor/unit and/or counseling patient: Coding Level of Care Code 49968 Post Operative Follow-Up Diagnoses Acute cholecystitis K81.0
== END 2023-10-11 15:57 | disposition home or self-care (01) | DRG 419 ==
LOC: 3E 12:12

== ENCOUNTER 2023-11-18 09:25 | Observation (INO) ==
--- NOTE | 2023-09-19 12:45 | PAT Medication Instructions ---
Medication Instructions Date of Service September 19, 2023 Home Medications Medication Instructions Recorded biotin 5,000 mcg disintegrating 5,000 mcg PO QAM #90 tabs 12/31/18 tablet doxazosin 2 mg tablet 2 mg PO HS #90 tabs 07/25/23 ergocalciferol (vitamin D2) 1,250 50,000 unit PO 2XWK #24 caps 07/25/23 mcg (50,000 unit) capsule (Vitamin D2) lisinopril 40 mg tablet 40 mg PO QAM #90 tabs 07/25/23 multivitamin 1 tab PO QAM biotin 5,000 mcg disintegrating tablet 5,000 mcg PO QAM cyanocobalamin (vitamin B-12) 1,000 mcg tablet 1,000 mcg PO WK ferrous sulfate 325 mg (65 mg iron) tablet 325 mg PO QAM doxazosin 2 mg tablet 2 mg PO HS ergocalciferol (vitamin D2) 1,250 mcg (50,000 unit) capsule (Vitamin D2) 50,000 unit PO 2XWK lisinopril 40 mg tablet 40 mg PO QAM glimepiride 2 mg tablet 2 mg PO QPM metformin 1,000 mg tablet 1,000 mg PO QAM metformin 500 mg tablet 500 mg PO QPM amlodipine 5 mg tablet 5 mg PO QAM omeprazole 20 mg capsule,delayed release 40 mg PO QAM rosuvastatin 5 mg tablet 5 mg PO QPM Continue as directed cyanocobalamin (vitamin B-12) 1,000 mcg tablet 1,000 mcg PO WK (just do not take on morning of surgery) ergocalciferol (vitamin D2) 1,250 mcg (50,000 unit) capsule (Vitamin D2) 50,000 unit PO 2XWK (just do not take on morning of surgery) STOP taking 2 weeks before surgery biotin 5,000 mcg disintegrating tablet 5,000 mcg PO QAM DO NOT take the morning of surgery multivitamin 1 tab PO QAM ferrous sulfate 325 mg (65 mg iron) tablet 325 mg PO QAM lisinopril 40 mg tablet 40 mg PO QAM metformin 1,000 mg tablet 1,000 mg PO QAM Take morning of surgery With a small sip of water, OTHERWISE NOTHING TO EAT OR DRINK AFTER MIDNIGHT: amlodipine 5 mg tablet 5 mg PO QAM omeprazole 20 mg capsule,delayed release 40 mg PO QAM Take evening before surgery doxazosin 2 mg tablet 2 mg PO HS glimepiride 2 mg tablet 2 mg PO QPM metformin 500 mg tablet 500 mg PO QPM rosuvastatin 5 mg tablet 5 mg PO QPM Other Notes If you have any questions please call us at [phone] or [phone] or [phone] or [phone]
--- NOTE | 2023-09-25 09:44 | Anesthesiology Consultation ---
Date of Service September 25, 2023 Assessment & Plan (1) Encounter for pre-operative examination: - Check BSG AM DOS - Infectious disease screening: Per assessment on 09/25/23: No known infectious disease contacts or current infectious disease symptoms. No noted recent Covid positive test result. - Outpatient joint assessment: Pt currently scheduled for inpatient pathway. If surgeon requests review for outpatient joint pathway, patient is not recommended candidate for outpatient joint program from anesthesia standpoint based upon available information. - PCP visit (09/04/23): "In the emergency room on September 01 you were ruled out for myocardial infarction or heart attack with the EKGs and blood work.. I would suggest making sure there is not a narrowing or plaque buildup that could cause a heart attack in the future. Will set up a nuclear stress test. You cannot do a treadmill stress test very well because of Osteoarthritis of knees. It would be beneficial to have the nuclear stress test done since you are to have left shoulder surgery by Dr. Flores in the near future.. I would recommend we double your omeprazole and take 40 mg every morning. Also, by a small bottle of liquid generic Maalox or Mylanta type and acid. The next time you have an episode take 2 tablespoons or a big swig of the liquid and acid.. We mutually decided to hold off on doing an ultrasound of the gallbladder. If you find you are having right upper abdominal pain or pain under the ribs espec ially with eating fatty foods let me know and we will check the gallbladder.. For history of bariatric surgery will consider either upper GI or EGD if symptoms persist." - Awaiting upcoming stress test ([place], scheduled 09/30) and PCP office visit ([facility], appt 10/02). Chart Review Chart Review: Patient seen in Pre Admission Testing Teaching & Discussion Pre-Anesthesia Teaching/Discussion Notes: Instructed NPO after midnight before surgery,except medications with 15 cc of water. Medication instructions provided according to the PAT guidelines. History Surgery Operation Date: 10/14/23 10:45 Proposed Procedures p Left Reverse Total Shoulder Arthroplasty - Ab Flores DO Height/Weight Height: 5 ft 9 in Weight: 114 kg Allergies Allergy/AdvReac Type Severity Reaction Status Date / Time atorvastatin AdvReac Intermediate Muscle Verified 09/23/23 13:17 aches simvastatin AdvReac Intermediate Muscle Verified 09/23/23 13:17 aches sulfamethoxazole AdvReac Intermediate Muscle pain Verified 09/23/23 13:17 trimethoprim AdvReac Intermediate Muscle pain Verified 09/23/23 13:17 Bactrim AdvReac Unknown MUSCLE PAIN Unverified 10/16/17 07:18 Medications Home Medications Medication Instructions Recorded Confirmed Last Taken multivitamin 1 tab PO QAM 06/20/18 09/17/23 09/01/23 biotin 5,000 mcg disintegrating 5,000 mcg PO QAM #90 tabs 12/31/18 09/17/23 09/01/23 tablet cyanocobalamin (vitamin B-12) 1,000 mcg PO WK 12/23/19 09/17/23 08/31/23 1,000 mcg tablet ferrous sulfate 325 mg (65 mg 325 mg PO QAM 12/23/19 09/17/23 09/01/23 iron) tablet doxazosin 2 mg tablet 2 mg PO HS #90 tabs 07/25/23 09/17/23 08/31/23 ergocalciferol (vitamin D2) 1,250 50,000 unit PO 2XWK #24 caps 07/25/23 09/17/23 08/30/23 mcg (50,000 unit) capsule (Vitamin D2) lisinopril 40 mg tablet 40 mg PO QAM #90 tabs 07/25/23 09/17/23 09/01/23 glimepiride 2 mg tablet 2 mg PO QPM 09/01/23 09/17/23 08/31/23 metformin 1,000 mg tablet 1,000 mg PO QAM 09/01/23 09/17/23 09/01/23 metformin 500 mg tablet 500 mg PO QPM 09/01/23 09/17/23 08/31/23 amlodipine 5 mg tablet 5 mg PO QAM 09/17/23 09/17/23 Unknown omeprazole 20 mg capsule,delayed 40 mg PO QAM 09/17/23 09/17/23 Unknown release rosuvastatin 5 mg tablet 5 mg PO QPM 09/17/23 09/17/23 Unknown Past Medical History Medical History Diabetes mellitus, type 2 GERD (gastroesophageal reflux disease) Hx of chest pain [facility] ED 09/01/23, EKG/troponins negative, outpatient stress test rec'd (scheduled 10/01/23 [facility]) Hx of deep venous thrombosis LLE (~2011), previously on AC Hyperlipidemia Hypertension Inflammatory arthritis Obesity Osteoarthritis Statin myopathy Exercise / Class Metabolic Activity III < 4 Walking/Shop/Light housework Past Family History Family History Son Family hx of colon cancer Daughter Multiple sclerosis Past Surgical History Surgical History H/O bilateral cataract extraction History of appendectomy History of back surgery x 3 with titanium rods History of bilateral carpal tunnel release History of bilateral knee replacement History of colonoscopy History of esophagogastroduodenoscopy (EGD) History of gastric bypass (2013) History of repair of anterior cruciate ligament of left knee History of tonsillectomy Hx of repair of rotator cuff R/L Past Anesthesia History No Hx of Anesthesia Complications and No Family Hx of Anesthesia Complications History of PONV No Hx of PONV and No Hx of Motion Sickness Social History Smoking Status: Never smoker Do You Dip or Chew Tobacco: No Hx Alcohol Use: No Hx Substance Use: No substance use type: does not use Review of Systems Chest pain 09/01/23- [facility] ER evaluation unremarkable. Still having occasional chest pain- describes episodes as "dull ache." Noted at rest. > outpatient stress test scheduled for 10/01/23. Discussed red flags/advised to proceed to ER if needed prior to stress testing/PCP appt. Patient denies shortness of breath, dyspnea on exertion, fever, chills, cough, wheezing, palpitations. Physical Exam Vital Signs BP 125/77 P 52 TEMP 98.1 SP02 95%RA RESP 16 Physical Full cervical extension range of motion. Full TMJ range of motion. TMD 3 finger breaths Mallampati Score 3 Dentition: intact Lungs: clear throughout to auscultation Cardiac: regular rate and rhythm, I/ systolic murmur Spine: normal Carotid arteries: negative bruit Extremities: no LE edema Lab Results Anesthesia Preop Results Results Anesthesia Widget: WBC 5.60 K/ul (4.8-10.8) 09/01/23 Hgb 13.3 g/dl (14.0-18.0) L 09/01/23 Hct 40.8 % (42.0-52.0) L 09/01/23 Plt 334 K/uL (130-400) 09/01/23 Na 136 mmol/L (136-145) 09/25/23 K 3.9 mmol/L (3.5-5.1) 09/25/23 Cl 102 mmol/L (98-107) 09/25/23 CO2 26 mmol/L (21-32) 09/25/23 BUN 16 mg/dl (6-23) 09/25/23 Creat 0.71 mg/dl (0.6-1.4) 09/25/23 Glucose Level 112 mg/dl (70-99(Fasting)) H 09/25/23 PT 12.1 Seconds (9.0-12.0) H 09/25/23 PTT 29 Seconds (21-31) 09/25/23 INR 1.1 (0.9-1.1) 09/25/23 HA1c 7.6 % (4.5-5.6) H 09/25/23 Blood Type A Negative 09/25/23 Antibody Screen NEGATIVE 09/25/23 Testing Electrocardiogram Date: 09/01/23 SR with first degree AVB at 63bpm. "Otherwise normal ECG" Chest X-Ray Date: 09/25/23 Findings: + NAD
--- NOTE | 2023-10-30 10:07 | Anesthesiology Consultation ---
Date of Service October 30, 2023 Assessment & Plan (1) Encounter for pre-operative examination: - Check BSG AM DOS - Infectious disease screening: Per assessment on 10/30/23: No known infectious disease contacts or current infectious disease symptoms. No noted recent Covid positive test result. - Outpatient joint assessment: Pt currently scheduled for inpatient pathway. If surgeon requests review for outpatient joint pathway, patient is not recommended candidate for outpatient joint program from anesthesia standpoint based on available information. - PCP visit (10/03/23): "For the atypical chest discomfort that took you to the emergency room on September 01 it is still recurring. Unfortunately, the stress echo did not tell us whether there was coronary artery disease or not. I am going to get a nuclear stress test done early next week in preparation for your surgery which is currently scheduled for October 13.. Although the upper GI did not show us a definite esophageal cause of your discomfort I would recommend increase your omeprazole 40 mg to 1 pill before breakfast and 1 pill before the evening meal.. For concern over possible gallbladder disease you had an ultrasound that showed gallbladder stones but no evidence of gallbladder disease. You are scheduled for a nuclear gallbladder scan tomorrow. I will ask for an x-ray of the ribs at the same time.. for the diabetes with hemoglobin A1c of 7.5 it is adequately controlled.. If the nuclear stress test comes back normal there are no contraindications to proceeding with your left shoulder surgery on October [address] Flores.. I am going to set up an appointment in a week. If we get word that the nuclear stress test i and the nuclear gallbladder scan are normal we could proceed with surgery." * Patient had subsequent abnormal nuclear hepatobilliary scan 10/04/23. Patient referred to general surgery for abnormal findings/cholecystectomy. Myocardial stress test 10/08/23 noting small to moderate in size, mild intensity predominantly reversible inferior, inferolateral, and apical myocardial perfusion defect. This suggests mild myocardial ischemia and/or soft tissue attenuation artifact. PCP reviewed patient to cardiology. Stress test findings reviewed by cardio/elsy to proceed with cholecystectomy from cardiac perspective. Cholecystectomy performed 10/10/23 at [facility] without issue. - S/P Laparoscopic Cholecystectomy (10/10/23): Done under GA with Grade 2 view with Glidescope #4. ETT #7.5. Atraumatic x 1 attempt, mucous membranes and dentition as preop. No issues noted per post-op anesthesia progress note. - Cardiology visit (10/23/23): "Abnormal stress test: Very small area of possible ischemia. Possibly soft tissue attenuation. Preserved LV systolic function on gated images. Overall low risk study.. Aortic stenosis: Mild on most recent echocardiogram. Asymptomatic in this regard. This can be followed over time.. First-degree AV block: No symptoms. No evidence of higher degree AV block during his recent exercise stress testing. Caution should be used if AV catherine blockers or rate control agents are required.. Atypical chest pain: He never reported symptoms of chest pain. All of his symptoms appear to have involved the upper abdomen and lower ribcage. He had an extended episode of symptoms leading up to his emergency room evaluation in August without elevated bio markers. History does not appear consistent with angina.. Preoperative evaluation: Acceptable risk to proceed with the planned surgery without additional testing. His perfusion study was low risk (less than 10% mild cardiomegaly rest) if abnormal at all. His symptoms have not been consistent with angina or coronary insufficiency. He has preserved LV systolic function and nonsevere valvular disease. He has no signs or symptoms of CHF. Standard precautions would apply. Recommend close monitoring and avoidance of hypotension, hypertension, tachycardia, hypoxia, and significant anemia throughout the perioperative period to reduce myocardial oxygen demand and meet myocardial oxygen delivery." Chart Review Chart Review: Acceptable Risk for Surgery (pending evaluation DOS) and Patient NOT seen in Pre Admission Testing History Surgery Operation Date: 11/18/23 11:30 Proposed Procedures p Left Reverse Total Shoulder Arthroplasty - Ab Flores DO Height/Weight Height: 5 ft 9 in Weight: 113.398 kg Allergies Allergy/AdvReac Type Severity Reaction Status Date / Time atorvastatin AdvReac Intermediate Muscle Verified 10/30/23 07:57 aches simvastatin AdvReac Intermediate Muscle Verified 10/30/23 07:57 aches sulfamethoxazole AdvReac Intermediate Muscle pain Verified 10/30/23 07:57 trimethoprim AdvReac Intermediate Muscle pain Verified 10/30/23 07:57 Medications Home Medications Medication Instructions Recorded Confirmed Last Taken multivitamin 1 tab PO QAM 06/20/18 10/30/23 10/09/23 0630 biotin 5,000 mcg disintegrating 5,000 mcg PO QAM #90 tabs 12/31/18 10/30/23 10/09/23 tablet 0630 cyanocobalamin (vitamin B-12) 1,000 mcg PO WK 12/23/19 10/30/23 10/05/23 1,000 mcg tablet ferrous sulfate 325 mg (65 mg 325 mg PO QAM 12/23/19 10/30/23 10/09/23 iron) tablet 0630 doxazosin 2 mg tablet 2 mg PO HS #90 tabs 07/25/23 10/30/23 10/08/23 ergocalciferol (vitamin D2) 1,250 50,000 unit PO 2XWK #24 caps 07/25/23 10/30/23 10/08/23 mcg (50,000 unit) capsule (Vitamin D2) lisinopril 40 mg tablet 40 mg PO QAM #90 tabs 07/25/23 10/30/23 10/09/23 0630 glimepiride 2 mg tablet 2 mg PO QPM 09/01/23 10/30/23 10/08/23 metformin 1,000 mg tablet 1,000 mg PO QAM 09/01/23 10/30/23 10/09/23 0630 metformin 500 mg tablet 500 mg PO QPM 09/01/23 10/30/23 10/08/23 amlodipine 5 mg tablet 10 mg PO QAM 09/17/23 10/30/23 10/09/23 0630 omeprazole 20 mg capsule,delayed 40 mg PO QAM 09/17/23 10/30/23 10/09/23 release 0630 rosuvastatin 5 mg tablet 5 mg PO 2XWK 09/17/23 10/30/23 10/05/23 blood sugar diagnostic (OneTouch #100 ea 10/17/23 10/23/23 Unknown Ultra Test strips) Past Medical History Medical History Aortic stenosis Stres echo 10/01/23: Mild aortic stenosis (ARIK 2.2cm2, MG 10.4mmhg) Chronic anemia Diabetes mellitus, type 2 DJD of left shoulder GERD (gastroesophageal reflux disease) Hx of deep venous thrombosis LLE (~2011), previously on AC Hyperlipidemia Hypertension Inflammatory arthritis Obesity Osteoarthritis Past Family History Family History Son Family hx of colon cancer Daughter Multiple sclerosis Other No family history of adverse response to anesthesia Past Surgical History Surgical History H/O bilateral cataract extraction History of appendectomy History of back surgery x 3 with titanium rods History of bilateral carpal tunnel release History of bilateral knee replacement History of colonoscopy History of esophagogastroduodenoscopy (EGD) History of gastric bypass (2013) History of repair of anterior cruciate ligament of left knee History of tonsillectomy Hx laparoscopic cholecystectomy Laparoscopic Cholecystectomy (10/10/23) Done under GA with Grade 2 view with Glidescope #4. ETT #7.5. Atraumatic x 1 attempt, mucous membranes and dentition as preop Hx of repair of rotator cuff R/L Social History Smoking Status: Never smoker Do You Dip or Chew Tobacco: No Hx Alcohol Use: No Hx Substance Use: No substance use type: does not use Lab Results Anesthesia Preop Results Results Anesthesia Widget: WBC 7.91 K/ul (4.8-10.8) 10/11/23 Hgb 11.4 g/dl (14.0-18.0) L 10/11/23 Hct 34.6 % (42.0-52.0) L 10/11/23 Plt 306 K/uL (130-400) 10/11/23 Na 132 mmol/L (136-145) L 10/11/23 K 3.6 mmol/L (3.5-5.1) 10/11/23 Cl 99 mmol/L (98-107) 10/11/23 CO2 29 mmol/L (21-32) 10/11/23 BUN 9 mg/dl (6-23) 10/11/23 Creat 0.86 mg/dl (0.6-1.4) 10/11/23 Glucose Level 135 mg/dl (70-99(Fasting)) H 10/11/23 PT 12.1 Seconds (9.0-12.0) H 09/25/23 PTT 30 Seconds (21-31) 10/09/23 INR 1.1 (0.9-1.1) 09/25/23 HA1c 7.5 % (4.5-5.6) H 09/26/23 Blood Type A Negative 09/25/23 Antibody Screen NEGATIVE 09/25/23 Testing Electrocardiogram Date: 09/01/23 SR with first degree AVB at 63bpm. "Otherwise normal ECG" Chest X-Ray Date: 09/25/23 Findings: + NAD Other Testing NM hepatobilliary scan Date: 10/04/23 FINDINGS: There is prompt, uniform accumulation of the tracer by the liver. There is normal filling of the intrahepatic ducts, common bile duct and gallbladder and normal excretion of the tracer into the duodenum. There is suboptimal contraction of the gallbladder. The calculated gallbladder ejection fraction is 29% (normal >40%). There is no significant enterogastric reflux. IMPRESSION: Abnormal contractile response of the gallbladder to Kinevac infus ion with ejection fraction of 29%. Otherwise unremarkable biliary imaging study. Exercise stress echo Date: 10/01/23 Nondiagnostic exercise stress echo for ischemia at 71% MPHR. The stress test was nondiagnostic secondary to inability to achieve adequate heart rate with exercise. Occasional premature ventricular ectopic beats in recovery. 4.6 METS. Rest echo with normal biventricular systolic function, moderate LVH, normal chamber dimensions, mild aortic stenosis. LVEF 55-60%. Grade 1 diastolic dysfunction. No regional wall motion abnormality. Myocardial stress test Date: 10/08/23 Raw data analysis demonstrates obesity, enlarged liver, and mild soft tissue attenuation. This study is considered adequate for interpretation. Gated myocardial perfusion imaging demonstrates normal size LV with normal wall motion and a calculated EF of 61%. There is a small to medium in size, mild intensity predominantly reversible inferior, inferolateral, and apical myocardial perfusion defect. This suggests mild myocardial ischemia and/or soft tissue attenuation artifact. This is a mildly abnormal study. Suggestive of small sized, mild intensity (6%) myocardial ischemia. No prior studies for comparison. Could consider definitive evaluation by coronary angiography versus medical management as clinically indicated.
--- NOTE | 2023-11-14 13:27 | History & Physical Report ---
Date of Service November 14, 2023 Assessment & Plan (1) Rotator cuff arthropathy: We will proceed with a left reverse shoulder arthroplasty. Postoperatively he will be placed in a sling and kept overnight in the hospital for postop medical management. He plans to have [facility] home health upon discharge. History of Present Illness Chief Complaint: Cuff tear arthropathy of the left shoulder. Primary Care Provider: Rolando Posey MD Yovani is a pleasant 73-year-old male who underwent a left rotator cuff repair about 10 years ago. He initially did well, but it has been bothering him more and more lately. He is having trouble doing anything away from his body or up overhead. 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 After failing conservative treatment, he has elected proceed with a left reverse shoulder arthroplasty. Allergies Allergy/AdvReac Type Severity Reaction Status Date / Time atorvastatin AdvReac Intermediate Muscle Verified 11/13/23 07:13 aches simvastatin AdvReac Intermediate Muscle Verified 11/13/23 07:13 aches sulfamethoxazole AdvReac Intermediate Muscle pain Verified 11/13/23 07:13 trimethoprim AdvReac Intermediate Muscle pain Verified 11/13/23 07:13 Home Medications Medication Instructions Recorded Confirmed Type multivitamin 1 tab PO QAM 06/20/18 11/13/23 History biotin 5,000 mcg disintegrating 5,000 mcg PO QAM #90 tabs 12/31/18 11/13/23 Rx tablet cyanocobalamin (vitamin B-12) 1,000 mcg PO WK 12/23/19 11/13/23 History 1,000 mcg tablet ferrous sulfate 325 mg (65 mg 325 mg PO QAM 12/23/19 11/13/23 History iron) tablet doxazosin 2 mg tablet 2 mg PO HS #90 tabs 07/25/23 11/13/23 Rx ergocalciferol (vitamin D2) 1,250 50,000 unit PO 2XWK #24 caps 07/25/23 11/13/23 Rx mcg (50,000 unit) capsule (Vitamin D2) lisinopril 40 mg tablet 40 mg PO QAM #90 tabs 07/25/23 11/13/23 Rx glimepiride 2 mg tablet 2 mg PO QPM 09/01/23 11/13/23 History metformin 1,000 mg tablet 1,000 mg PO QAM 09/01/23 11/13/23 History metformin 500 mg tablet 500 mg PO QPM 09/01/23 11/13/23 History amlodipine 5 mg tablet 10 mg PO QAM 09/17/23 11/13/23 History omeprazole 20 mg capsule,delayed 40 mg PO QAM 09/17/23 11/13/23 History release rosuvastatin 5 mg tablet 5 mg PO 2XWK 09/17/23 11/13/23 History blood sugar diagnostic (OneTouch #100 ea 10/17/23 11/13/23 Rx Ultra Test strips) Past Med/Surg History Medical History 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 ETT #7.5. Atraumatic x 1 attempt, mucous membranes and dentition as preop History of esophagogastroduodenoscopy (EGD) History of colonoscopy History of repair of anterior cruciate ligament of left knee History of bilateral knee replacement Hx of repair of rotator cuff R/L History of bilateral carpal tunnel release H/O bilateral cataract extraction History of appendectomy History of tonsillectomy History of back surgery x 3 with titanium rods History of gastric bypass (2013) Family History Son Family hx of colon cancer Daughter Multiple sclerosis Other No family history of adverse response to anesthesia Social History Smoking Status: Never smoker Second Hand Exposure: No; Do You Dip or Chew Tobacco: No; Hx Alcohol Use: No Hx Substance Use: No Preferred Language: Kyrgyz Communication Ability: Effective Visual Impairment: No Limitations Hearing Ability: Normal Computer Network Engineer Required: No Beliefs That Will Affect Care: None marital status: Current Living Situation: Spouse current occupational status: retired How many Children do You have Comment: Has children Feels Safe at Home: Yes Diet: diabetic during the past year weight has: remained stable Seatbelt Use: always Assistive Devices: None Review of Systems All systems reviewed & are unremarkable except as noted in HPI & below. Physical Exam Physical examination of the left shoulder shows he has about 120 degrees of forward elevation 120 degrees of abduction. He has 4 out of 5 motion at the full can testing and external rotation.. Constitutional WD/WN, vitals as above Eyes PERRL, conjunctivae normal, anicteric sclerae ENMT external ear and nose normal, oropharynx normal Neck trachea midline, no thyromegaly Respiratory normal respiratory effort Cardiovascular RRR, no murmur, no edema Gastrointestinal (Abdomen) normal bowel sounds, soft, nontender, no hepatosplenomegaly Psychiatric A+Ox3, euthymic affect Results & Data Results & Data Laboratory Results . Diagnostic Findings X-rays of the left shoulder show signs of cuff tear arthropathy. There is superior migration of the humeral head on the glenoid and significant blunting of the greater tuberosity.. PG Care Time/CCT Total # of Minutes Spent Total Time Spent with Patient: Total time spent is greater than 50% in coordination of care (as documented) at patient's floor/unit and/or counseling patient: Coding Level of Care Code None Diagnoses Rotator cuff arthropathy M12.819
[~2023-11-18 09:25] MED LIST changes: -AMLO5TAB3 PO; -BIOTPOW17 PO; +BUPIVACAINE 0.5 % 5 MG/1 ML PF 10ML VIAL ONE; -ERGO500037 PO; -FERR1TAB23 PO; -GLC/500 PO; -GLUCTAB7 PO; -LISI40TA PO; -MELOXICAM PO; -MULT-506 PO; -PRLSR20 PO; -RXC5 PO; -VITAMIN B12 PO
[2023-11-18] MEDS ORDERED: ONDANSETRON INJ 2 MG/ML 2 ML VIAL ONE (09:36)
[2023-11-18] MEDS ORDERED: LIDOCAINE 2% 2 ML VIAL/AMP(20MG/ML) INFIL ONE (09:36)
[2023-11-18] MEDS ORDERED: MIDAZOLAM HCL 1 MG/ML 2ML VIAL ONE (09:36)
[2023-11-18] MEDS ORDERED: fentaNYL citrate PF 100 MCG/2 ML VIAL ONE (09:36)
[2023-11-18] MEDS ORDERED: PROPOFOL IV EMULSION 10 MG/ML 20 ML VIAL IV ONE (09:36)
[2023-11-18] MEDS: LR 15ML/HR IV SCH (09:53)
[2023-11-18] MEDS: dexAMETHasone**PF** 10 MG/ML VIAL IV SCH (09:56)
[2023-11-18] MEDS: LR 60ML/HR IV SCH (09:58)
[2023-11-18] MEDS: ACETAMINOPHEN 500 MG TAB PO SCH ×2 (10:16→15:36)
[2023-11-18] MEDS: GABAPENTIN 300 MG CAP PO SCH (10:16)
[2023-11-18] MEDS: FAMOTIDINE 20 MG TAB PO SCH (10:16)
--- NOTE | 2023-11-18 10:26 | History & Physical Bridge Note ---
Date of Service November 18, 2023 History & Physical Bridge Note I have examined the patient, reviewed the History & Physical and in the interval since the performance of the History & Physical I have noted the following changes of clinical significance: no changes noted
[2023-11-18] MEDS ORDERED: ONDANSETRON INJ 2 MG/ML 2 ML VIAL IV PRN ×2 (10:42→14:43)
[2023-11-18] MEDS ORDERED: fentaNYL citrate PF 100 MCG/2 ML VIAL IV PRN (10:42)
[2023-11-18] MEDS ORDERED: ePHEDrine sulfate 50 MG/ML AMP IV PRN (10:42)
[2023-11-18] MEDS ORDERED: ATROPINE SULFATE 0.1 MG/ML 10ML SYR IV PRN (10:42)
[2023-11-18] MEDS: TRANEXAMIC ACID 1,000 MG **IV Pre-op IV SCH (11:14)
[2023-11-18] MEDS: ceFAZolin 2000MG 2,000 MG/15 ML SYR IV SCH ×2 (11:17→17:06)
[2023-11-18] MEDS: ROPIV 0.5% 246mg, Ketorolac 30mg, EPINEPHrine 0.5mg in NSS INFIL SCH (11:51)
[2023-11-18] MEDS ORDERED: ePHEDrine sulfate 50 MG/ML AMP ONE (12:12)
[2023-11-18] MEDS: TRANEXAMIC ACID 1,000 MG **IV Intra-op IV SCH (12:27)
--- NOTE | 2023-11-18 12:39 | Operative Report ---
PG Post Operative Report Pre & Post Diagnosis Operation Date: 11/18/23 11:00 Pre-Op Diagnosis: Left Shoulder Degenerative Joint Disease Post-Op Diagnosis: Left Shoulder Degenerative Joint Disease I identified the patient and participated in the time-out.: Yes Procedure Operation Date: 11/18/23 11:00 Actual Procedures p Left Reverse Total Shoulder Arthroplasty(Left) - Ab Flores DO Surgeon Ab Flores DO Adult Basic Education Instructor Ab Farah PA-C Estimated Blood Loss 200 Findings Consistent with Post-Op Diagnosis Specimens Left humeral head Description of Procedure A CPT code modifier 59: The long head of the biceps tendon was enlarged and inflamed consistent with tendinopathy. A tenodesis was opted. This was a separ ate and distinct portion of the procedure. For these reasons, a CPT code modifier 59 will be added to this case. Implants used: I used a [employer] Comprehensive reverse total shoulder arthroplasty system with a size 15 press fit micro humeral stem, a +3 offset humeral tray and a +3 retentive humeral bearing, a 25 mm medium augment baseplate with a 6.5 mm central screw and superior and inferior locking screws, and a size 40 mm eccentric glenosphere. Yovani arrived at [facility] for the above procedure. He was seen in the preoperative holding area and the operative extremity was identified and signed. He was given a preoperative antibiotic, TXA, and an interscalene nerve block. He was taken back to the operating room, laid on table in supine position, and put under general anesthesia. He was then put into the beachchair position. The shoulder was then prepped and draped in sterile fashion. A timeout was done and the patient and the operative extremity was properly identified. A deltopectoral approach was used. Dissection was taken down through the fascia and the deltoid was retracted laterally and the conjoined tendon was retracted medially. The anterior shoulder was exposed. The biceps groove was opened up and the biceps tendon was examined extensively. The biceps tendon demonstrated enlargement and inflammatory changes consistent with longstanding inflammation in the context of osteoarthritis and cuff arthropathy. The long head of the biceps tendon was then tenodesed to the upper border of the pectoralis major. This was a separate and distinct portion of the procedure. The subscapularis was then directly released off the lesser tuberosity with a peel technique. The inferior capsule was released and the humeral head was dislocated. A canal finding reamer was sent down the center of the humeral canal. Sequential reaming up to a size 15 reamer was done. Off that reamer, a proximal humeral resection guide was placed. The proximal humerus was resected at 135 of inclination and 25 of retroversion. Osteophytes were then removed and the glenoid was exposed. Time was spent doing a complete capsular and labral release. The glenoid guide was then placed in the inferior aspect of the glenoid. A 3.2 mm Steinmann pin was then placed into the glenoid vault at 10 of inclination. The glenoid baseplate was then reamed. The final size 25 mm medium augment baseplate was then impacted in the place. A 6.5 mm central screw was then placed followed by superior and inferior locking screws. A 40 mm eccentric g lenosphere was then impacted into place. Surrounding soft tissues were then injected with 100 cc an orthopedic pain control cocktail. The proximal humerus was then exposed. Sequential broaching of the humerus up to a size 15 broach was done. Off that broach a +3 offset and +3 retentive humeral tray was trialed. The shoulder was then reduced, brought through a full range of motion, and felt to be stable. The shoulder was then dislocated and the broach was removed. The final size 15 micro press-fit humeral stem was then impacted into place. A +3 retentive humeral bearing was then snapped onto a +3 offset humeral tray. The humeral tray was then impacted onto the humeral stem. The shoulder was once again reduced, brought through a full range of motion, and felt to be stable. Subscapularis was very poor quality and unable to be repaired. A dilute betadyne lavage was then done for 3 minutes. The joint was then irrigated with normal saline solution. Hemostasis was obtained. The interval was closed with 2-0 Vicryl suture. The skin was then closed with 2-0 Vicryl and chiqui. A Silverlon dressing was placed and the arm was rested in a regular arm sling. He was then extubated and transferred to a hospital bed. He taken to the postanesthesia care unit in stable condition. He tolerated the procedure well. Ab Farah PA-C, was present for the entire procedure. He was critical for patient positioning, prepping, draping, retraction exposure, wound closure and application of sterile dressing. I attest to the content of the Intraoperative Record and any orders documented therein. Any exceptions are noted below.
--- NOTE | 2023-11-18 13:13 | XRay Report ---
LEFT SHOULDER 2 VIEWS CLINICAL HISTORY: Postoperative examination. FINDINGS: 2 portable views of the left shoulder are compared to study dated 05/01/2023. The skeletal structures are osteopenic. A left shoulder arthroplasty is in near anatomic alignment. No acute fract ure is seen. Productive degenerative change is noted at the acromioclavicular joint. Skin clips, subc utaneous gas, and soft tissue swelling overlying the left shoulder are expected postsurgical findings . Atelectasis is noted at the left lung base. IMPRESSION: Expected postoperative appearance status post left shoulder arthroplasty. No acute fractu re is seen. Electronically signed by: Rolando Canas M.D. 11/18/2023 1:12 PM
--- NOTE | 2023-11-18 13:14 | Anesthesiology Progress Note ---
Date of Service November 18, 2023 Anesthesia Post Procedure Vital Signs Vital Signs: Temp Pulse Pulse Resp BP Pulse Ox O2 Del Method 11/18/23 12:47 36 C L 73 15 151/71 H 100 Room Air 11/18/23 10:02 36.5 C 52 L 20 157/99 H 98 Room Air Pain Intensity Left Shoulder: Pain Intensity: 2 Transfer of Care Handoff Completed per policy Notes Mental Status: alert / awake / arousable and participated in evaluation Patient Amnestic to Procedure: Yes Nausea / Vomiting: improving with treatment Pain: adequately controlled and improving with treatment Airway Patency, RR, SpO2: stable & adequate BP & HR: stable & adequate Hydration State: stable & adequate Anesthetic Complications: no major complications apparent and Pt Satisfied with anesthetic care Notes: Pt interscalene block is functioning well. Arm in sling
[2023-11-18] MEDS ORDERED: oxyCODONE HCL IR 5 MG TAB (IMMEDIATE RELEASE) PO PRN (14:43)
[2023-11-18] MEDS ORDERED: MAGNESIUM HYDROXIDE SUSP 30 ML UDC PO PRN (14:43)
[2023-11-18] MEDS ORDERED: PHARMACY GLYCEMIC MGMT CONSULT PRN (14:43)
[2023-11-18] MEDS ORDERED: METOCLOPRAMIDE HCL INJ 5 MG/ML 2 ML VIAL IV PRN (14:43)
[2023-11-18] MEDS ORDERED: NALOXONE HCL 0.4 MG/1 ML VIAL/CARP IV PRN (14:43)
[2023-11-18] MEDS ORDERED: bisacodyL 10 MG SUPP PR PRN (14:43)
[2023-11-18] MEDS ORDERED: HYDROmorphone INJ 0.5 MG/0.5 ML SYR IV PRN (14:43)
--- NOTE | 2023-11-18 15:14 | Pharmacy Report ---
Pharmacy Glycemic Short Note 2 - Date of Service November 18, 2023 - Glycemic Short BSG Results (Last 24 hours): 11/18/23 11/18/23 09:52 12:49 POC Glucose 129 H 161 H OUTPATIENT ANTIDIABETIC REGIMEN: * metformin 1000mg QAM, 500mg QPM * glimeperide 1mg QAM, 2mg QPM * HbA1c 7.5% (09/26/23) ASSESSMENT: * Yovani is 73 YOM admitted status post left total shoulder arthroplasty with a history of type 2 diabetes mellitus. Pharmacy has been consulted to assist with glycemic management while inpatient. * Preoperative BSG within goal range, received dexamethasone 10mg IV preop as well as Ancef. Will give 15 units of Lantus to cover steroids (~0.2units/kg based on AdjBW). Reasses basal regimen in AM. * Novolog initiated at a weight based stress of 3 (based on AdjBW) PLAN FOR INPATIENT GLYCEMIC CONTROL: * Hold outpatient oral diabetes medications * Basal insulin * Lantus 15 units SQ now x 1 * Bolus insulin * NovoLog per scale ACHS or Q6hrs while NPO * Goal Range: Low 110 mg/dL - High 140 mg/dL * Correction Factor: 20 mg/dL/unit * Nutritional / Prandial insulin per carb ratio of 1 unit per 6 grams CHO consumed
[2023-11-18] MEDS: ORTHO JOINT ANESTHETIC ONE (15:29)
[2023-11-18] MEDS: LANTUS PER UNIT CHARGE SC ONE (15:37)
[2023-11-18] MEDS: KETOROLAC TROMETHAMINE 15 MG/ML VIAL IV SCH (15:37)
[2023-11-18] MEDS: SODIUM CHLORIDE 0.9% 1,000 ML IV SCH (15:37)
[2023-11-18] MEDS: INSULIN ASPART PER UNIT CHARGE SC SCH (17:06)
[2023-11-18] MEDS ORDERED: metFORMIN HCL 500 MG TAB PO SCH (21:00)
[2023-11-18] MEDS: DOCUSATE SODIUM 100 MG CAP PO SCH (21:00)
[2023-11-18] MEDS ORDERED: GLIMEPIRIDE 2 MG TAB PO SCH (21:00)
[2023-11-18] MEDS: DOXAZosin MESYLATE TAB 2 MG TAB PO SCH (21:01)
[2023-11-18] MEDS: SENNA 8.6 MG TAB PO SCH (21:01)
[2023-11-19] MEDS: lisinopril 40 MG TAB PO SCH (08:24)
[2023-11-19] MEDS: ROSUVASTATIN CALCIUM 5 MG TAB PO SCH (08:24)
[2023-11-19] MEDS: amLODIPine BESYLATE 5 MG TAB PO SCH (08:25)
[2023-11-19] MEDS: PANTOprazole 40 MG TAB PO SCH (08:25)
[2023-11-19] MEDS: MULTIVITAMIN TAB PO SCH (08:25)
[2023-11-19] MEDS: GLIMEPIRIDE 2 MG TAB PO SCH (08:58)
[2023-11-19] MEDS: metFORMIN HCL 500 MG TAB PO SCH (08:59)
[2023-11-19] MEDS ORDERED: metFORMIN HCL 500 MG TAB PO SCH ×2 (09:00→16:30)
--- NOTE | 2023-11-19 10:10 | Orthopedic Progress Note ---
Date of Service November 19, 2023 Assessment & Plan (1) Status post reverse arthroplasty of left shoulder: Overall, he is doing quite well today with good pain control to the left shoulder. He will work with physical therapy later this morning to work on ambulation and range of motion exercises. He can be discharged home pending formal physical therapy evaluation and recommendations. He will follow-up with orthopedics in 2 weeks for postoperative management. Subjective . Yovani was seen and evaluated this morning resting comfortably in no apparent distress. He notes that his pain is well-controlled to the left shoulder today. He has been up and out of bed with no significant issues. He has yet to work with physical therapy this morning. He denies any other concerns today. Review of Systems All systems reviewed & are unremarkable except as noted in HPI & below. Physical Exam . On physical examination of the left shoulder, dressings are clean, dry, and intact. He is maintaining his shoulder sling as directed. He has grossly intact motor and sensory function of the left upper extremity. +2 radial pulse. Less than 2-second capillary refill. Normal sensation. Neurovascular intact. Results & Data Results & Data Laboratory Results . Diagnostic Findings . Postoperative x-rays of the left shoulder show prosthesis to be in anatomical alignment with no signs of fracture complication or loosening. PG Care Time/CCT Total # of Minutes Spent Total Time Spent with Patient: Total time spent is greater than 50% in coordination of care (as documented) at patient's floor/unit and/or counseling patient: Coding Level of Care Code 01038 Post Operative Follow-Up Diagnoses Status post reverse arthroplasty of left shoulder Z96.612
--- NOTE | 2023-11-19 10:11 | Discharge Summary ---
Date of Service November 19, 2023 Admission HPI (Per Admitting) Yovani is a pleasant 73-year-old male who underwent a left rotator cuff repair about 10 years ago. He initially did well, but it has been bothering him more and more lately. He is having trouble doing anything away from his body or up overhead. 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 After failing conservative treatment, he has elected proceed with a left reverse shoulder arthroplasty. Admission Exam (Per Admitting) Physical examination of the left shoulder shows he has about 120 degrees of forward elevation 120 degrees of abduction. He has 4 out of 5 motion at the full can testing and external rotation.. Principal Diagnosis Same as "Discharge Diagnosis" noted below under Discharge Instructions. Discharge Exam . On physical examination of the left shoulder, dressings are clean, dry, and intact. He is maintaining his shoulder sling as directed. He has grossly intact motor and sensory function of the left upper extremity. +2 radial pulse. Less than 2-second capillary refill. Normal sensation. Neurovascular intact. Discharge Data Procedures Performed Operation Date: 11/18/23 11:00 Actual Procedures p Left Reverse Total Shoulder Arthroplasty(Left) - Ab Flores DO Ordered Studies 11/18/23 05:00 US - OR guided needle placemen Routine Hospital Course (1) Status post reverse arthroplasty of left shoulder: On November 18, 2023 Yovani arrived at [facility] and underwent a left reverse total shoulder arthroplasty performed by Dr. Flores with no complications. He had a general anesthetic. Postoperatively, he was transferred to the PACU for immediate postoperative management and then transferred to the general orthopedic floor in stable condition. His hospital course was uneventful. On postoperative day #1, his vital signs were stable and his pain was well-controlled. He participated well with physical therapy working on ambulation and range of motion exercises. He was then discharged home in stable condition. He will follow-up with orthopedics in 2 weeks for postoperative management. PG Care Time/CCT Total # of Minutes Spent Total Time Spent with Patient: Total time spent is greater than 50% in coordination of care (as documented) at patient's floor/unit and/or counseling patient: Discharge Plan Discharge Items Patient Disposition: Home - Home Health Services Reason For Visit: Left Shoulder Degenerative Joint Disease Discharge Diagnosis: Same Activity: Per Instructions section Non-emergency contact: Surgeon Call non-emergency contact if: your temperature is above 101.5, your wound has increased redness, your wound has increased drainage and your wound pain has increased Follow-up/Referrals: Rolando Posey MD [Primary Care Provider] - Diet: Regular Addtl Attending Provider Instructions: Activity and Therapy Recommendations: * If you are using [facility] then therapy will be provided at your home until they feel you have accomplished all of your goals. * If you are using [facility] then Physical Therapy will be provided until they feel you are ready to start Outpatient Physical Therapy. * If you are not using home therapy then Outpatient Physical Therapy should start about 3-5 days from your day of surgery. Therapy will last about 8-12 weeks * Wear your sling for 3 weeks, unless otherwise instructed. You may remove your sling to shower and to dress, but otherwise, you should be in your sling at all times, including while sleeping * The shoulder replacement is very stable and you can use your hand while in the sling * You were shown a series of exercises in the hospital. Do these exercises daily including the exercises you were shown in physical therapy. Medications: * Narcotic You will likely be sent home from the hospital with a prescription for the narcotic pain medication that worked best throughout your stay. * Cefadroxil -take the antibiotic twice a day for 10 days to help prevent infection. * Other medications may be prescribed for specific circumstances. If you have any questions, please call the office at . * Resume previous home medications unless otherwise instructed Dressing Care: Leave the Silverlon dressing in place for 7 days. After 7 days you may remove the dressing. If the incision is not draining then you may leave the chiqui open to air. If there is a little bit of drainage or if the chiqui are getting stuck on your clothing then cover the incision with a dry dressing. The chiqui will be removed at your 2 week follow-up appointment. Showering: You may shower with the Silverlon dressing in place. Do not let the shower spray hit the dressing directly. Pat the Silverlon dressing dry. If the dressing becomes wet underneath, then simply remove the dressing. Keep the incision dry until you are 7 days out from the day of surgery. After 7 days you may remove the Silverlon dressing and shower with the chiqui exposed. Let soapy water run over the chiqui and pat them dry. Do not scrub or soak the incision. Things To Watch For: * Drainage from the incision site that occurs more than one week after your surgery. * Increased redness at the incision site. * Fever above 102 degrees Fahrenheit. * Unusual chest pain or shortness of breath. * Call [facility] at with any of the above problems Follow-Up Visit: Follow-up with Dr. Flores's PA (Ab Farah) 2-3 weeks after your day of surgery. He will remove your chiqui and answer any questions. If you have any additional questions or concerns, Dr Flores is usually in the office at the same time and will be available An appointment was probably scheduled when you signed-up for surgery in the office. If you have any questions call More detailed instructions as well as Frequently Asked Questions were provided in a folder by our office when you signed-up for surgery. Please review these instructions when you get home. If you have any further questions or concerns, please feel free to call the office at [phone] Pending Studies at Discharge: No Stand-Alone Forms: My [facility], Smoking Cessation Medications and DC Order Prescriptions: New oxycodone 5 mg Tablet 5 mg PO Q6H PRN (Reason: pain) Qty: 30 0RF cefadroxil 500 mg capsule 500 mg PO BID 10 Days Qty: 20 0RF Continued ergocalciferol (vitamin D2) [Vitamin D2] 1,250 mcg (50,000 unit) capsule 50,000 unit PO 2XWK Qty: 24 3RF Rx Instructions: Saturday lisinopril 40 mg tablet 40 mg PO QAM Qty: 90 3RF (DME) OneTouch Ultra Test Strip See Rx Instructions .Route Qty: 100 3RF Rx Instructions: daily As directed, E11.9 biotin 5,000 mcg tablet,disintegrating 5,000 mcg PO QAM Qty: 90 3RF cyanocobalamin (vitamin B-12) 1,000 mcg tablet 1,000 mcg PO 2XWK Rx Instructions: Saturday, Saturday ferrous sulfate 325 mg (65 mg iron) tablet 325 mg PO QAM multivitamin Tablet 1 tab PO QAM amlodipine 5 mg tablet 10 mg PO QAM omeprazole 20 mg capsule,delayed release(DR/EC) 40 mg PO QAM rosuvastatin [Crestor] 5 mg tablet 5 mg PO 2XWK Rx Instructions: Only taks 1-2 times per week doxazosin [Cardura] 2 mg tablet 2 mg PO HS glimepiride 2 mg Tablet 2 mg PO QPM metformin 1,000 mg Tablet 1,000 mg PO QAM metformin 500 mg tablet 500 mg PO QPM Admission Data Admit Date/Time: 11/18/23 12:05 Attending Provider: Ab Flores Admit Provider: Ab Flores Primary Care Provider: Rolando Posey Other Providers: [facility] Other Interventions: Discharge Summary Assessment (RN) Last Done: 11/19/23 10:05
[2023-11-19] MEDS: traMADol HCL 50 MG TABLET PO PRN (10:35)
[2023-11-19] MEDS ORDERED: GLIMEPIRIDE 2 MG TAB PO SCH (16:30)
[2023-11-22] MEDS ORDERED: ERGOCALCIFEROL 1250 MCG (50,000 UNITS) CAP PO SCH (09:00)
== END 2023-11-19 13:30 | disposition home health service (06) ==
LOC: 3E 09:25 → ASU 09:25